=== PATIENT | female | born 1965 | race Caucasian/White ===

== ENCOUNTER → 2018-03-10 13:19 | Outpatient (CLI) | payer OTHER, SELFPAY ==
--- NOTE | 2018-03-10 13:24 | DI.MRI.S_ITS ---
PROCEDURE: MR LUMBAR SPINE WO CON INDICATIONS: right hip and lumbar pain after L and I fall 11/12/2017 TECHNIQUE: Noncontrast sagittal T1 spin echo and T2 fast echo, sagittal STIR, axial T1 and T2 fast spin echo through the lumbar spine. In cases with scoliosis, additional coronal T2 fast spin echo may be performed. COMPARISON: [facility], MR, L-SPINE WITHOUT CONTRAST, 05/15/2017, 12:56. [facility], CR, L-SPINE MINIMUM 4 VIEWS, 05/01/2017, 14:55. FINDINGS: Image quality: Excellent. Alignment and Curvature: There is normal bony alignment. Bone Marrow: Marrow is of normal overall signal. No acute vertebral body compression fractures. Reactive signal within the endplates adjacent to the L5-S1 intervertebral disc. Spinal Cord: Conus medullaris terminates at the upper L2 level. Visualized cord demonstrates normal signal and size. Paraspinous Soft Tissues: No paravertebral masses. Multiple calculi within the gallbladder lumen are present. L1-L2: Disc desiccation and diffuse disc bulge. Mild canal stenosis. No foraminal stenosis. No change. L2-L3: Disc desiccation and diffuse disc bulge. Bilateral hypertrophy. Mild canal stenosis. Mild foraminal stenosis bilaterally. No change. L3-L4: Disc desiccation and diffuse disc bulge. Bilateral facet hypertrophy. Mild canal stenosis. Mild foraminal stenosis bilaterally. No change. L4-L5: Disc desiccation and diffuse disc bulge. Bilateral facet hypertrophy. Mild canal stenosis. Mild foraminal stenosis bilaterally. No change. L5-S1: Disc desiccation and diffuse disc bulge. bilateral facet hypertrophy. Mild canal stenosis. Mild left foraminal stenosis. Moderate right foraminal stenosis. No change. IMPRESSION: 1. Multilevel degenerative disc and facet disease. 2. No change in mild multilevel canal stenoses. 3. No change in multilevel foraminal stenoses, worst on the right at L5-S1. 4. Cholelithiasis. Dictated by: Maureen Jones M.D. on 03/10/2018 at 15:49 Approved by: Maureen Jones M.D. on 03/10/2018 at 15:54
--- NOTE | 2018-03-10 13:24 | DI.RAD.S_ITS ---
PROCEDURE: FL ARTHROGRAM HIP RT INDICATIONS: right hip and lumbar pain after L and I fall 11/12/2017 TECHNIQUE: The indications, alternatives, benefits, risks, and complications of the procedure were explained to the patient. Written informed consent was obtained and placed in the chart. The hip was examined fluoroscopically with the legs fixed in slight internal rotation, and a site for needle placement chosen for entry into the hip joint from an anterior approach. Care was taken to locate the common femoral artery and vein beforehand. The skin was prepped and draped in a sterile fashion, and 1% Lidocaine infiltrated from skin down to joint capsule. A spinal needle was inserted into the joint, and a small amount of iodinated contrast media injected to confirm intra-articular placement of the needle tip. This was followed by approximately 10 mL dilute solution of a gadolinium containing MR contrast agent. The needle was removed and a dressing was applied. The patient was given postprocedural instructions and sent to the MR suite for imaging. FINDINGS: A single fluoroscopic spot image demonstrates intra-articular location of injected iodinated contrast. IMPRESSION: Successful fluoroscopically guided administration of dilute Gadolinium solution into the hip joint for MR arthrogram. Dictated by: Maurice Pepper M.D. on 03/10/2018 at 16:49 Approved by: Maurice Pepper M.D. on 03/10/2018 at 16:49
--- NOTE | 2018-03-10 13:24 | DI.MRI.S_ITS ---
PROCEDURE: MR HIP RT W CON INDICATIONS: Right hip pain post fall 11/12/2017 TECHNIQUE: After the administration of 10 mL of dilute intra-articular Gadolinium contrast, coronal STIR of the bony pelvis; coronal and oblique axial T1 spin echo with fat saturation, axial T2 fast spin echo with fat saturation, sagittal T1 spin echo with and without fat saturation of the involved hip. COMPARISON: None. FINDINGS: Image quality: Excellent. Bones and joints: Bone marrow of the pelvic ring and proximal femurs show normal signal throughout. No intraosseous lesions or fractures. No avascular necrosis of the femoral head. The visualized lower lumbar spine appears normally aligned. The ligamental, neck, and labral plicae appear normal where visualized. Tendons and ligaments: The gluteus medius and minimus tendons appear however there is intrasubstance signal change and edema, in addition to a low signal focus in the insertion of the gluteus medius tendon measuring 8-9 mm suggestive of calcific tendinitis. . The nearby proximal iliotibial band also appears intact. The iliopsoas tendon appears intact, without adjacent bursal fluid collections or evidence for impingement syndrome. The origin of the hamstring tendon is intact at the ischial tuberosity, as well as the associated sacrotuberous ligament. The straight and reflected heads of the rectus femoris muscle origin appear intact, as well as the conjoint tendon. The ligamentum teres appears intact where visualized. Labrum and cartilage: On image 10 series 8, there is curvilinear T2 hyperintense appearance involving the labrum however this is probably artifact, and not confirmed on other pulse sequences. No discrete intrasubstance gadolinium signal intensity to suggest labral tear is seen. Mild diffuse articular cartilage loss. No paralabral cysts. Prominent anterior dysplastic bump seen at the femoral head neck junction on image 9 series 8 . The alpha angle of the femur is within normal limits at less than 55 degrees. Soft tissues: Visualized muscles demonstrate normal bulk and internal signal. Quadratus femoris muscle demonstrates no internal edema to suggest ischiofemoral impingement. The proximal sciatic neurovascular bundle appears normal adjacent to the hamstring tendons. No free pelvic fluid. Bladder wall thickness is normal. Genitourinary structures and bowel loops appear normal where visualized. 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 Mild right hip joint degeneration. Incidentally noted anterior dysplastic bump at the femoral head neck junction raising the possibility of femoral acetabular impingement syndrome however only in the appropriate clinical context. No definite labral tear. Dictated by: Maurice Pepper M.D. on 03/10/2018 at 16:36 Approved by: Maurice Pepper M.D. on 03/10/2018 at 16:49
== END ==
PROVIDERS: Family Provider Physician Assistant; PCP Physician Assistant; Visit Provider Physician Assistant
DX: M51.36 Other intervertebral disc degeneration, lumbar region (principal); M47.816 Spondylosis without myelopathy or radiculopathy, lumbar region; M48.061 Spinal stenosis, lumbar region without neurogenic claudication; M99.73 Connective tissue and disc stenosis of intervertebral foramina of lumbar region; K80.20 Calculus of gallbladder without cholecystitis without obstruction; M65.251 Calcific tendinitis, right thigh; M16.11 Unilateral primary osteoarthritis, right hip
CPT/HCPCS: 27093; 72148; 73722; 77002

== ENCOUNTER → 2018-05-22 12:14 | Outpatient (CLI) | payer OTHER, SELFPAY ==
--- NOTE | 2018-05-22 12:25 | DI.US.S_ITS ---
PROCEDURE: US ABDOMEN LIMITED INDICATIONS: ABDOMINAL PAIN TECHNIQUE: Real-time focused scanning was performed of the abdomen, with image documentation. COMPARISON: None. FINDINGS: Right lower quadrant pain with palpable lump does not show evidence of abdominal wall herniation or mesenteric mass by ultrasound imaging. Appendix is surgically absent by history. IMPRESSION: Negative limited abdomen ultrasound Dictated by: Kyle Huffman M.D. on 05/22/2018 at 12:55 Approved by: Kyle Huffman M.D. on 05/22/2018 at 12:56
== END ==
PROVIDERS: PCP Physician Assistant; Visit Provider Physician Assistant
DX: R10.31 Right lower quadrant pain (principal)
CPT/HCPCS: 76705

== ENCOUNTER 2018-07-09 13:45 | Outpatient (RCR) | payer OTHER, SELFPAY ==
--- NOTE | 2018-04-23 15:15 | PT.OTN ---
Current Diagnoses Other chronic pain (04/23/18) Pain in right hip (04/23/18) Dorsalgia, unspecified (04/23/18) Difficulty in walking, not elsewhere classified (04/23/18) Weakness (04/23/18) Physical Therapy Treatment Note PT-OP-A Visit Information Start: 04/23/18 17:21 Freq: Status: Active Protocol: Document 04/23/18 17:25 GGD (Rec: 04/23/18 17:25 GGD [email or web address]) Out-Patient Physical Therapy Visit Information Visit Information Visit Type Administrative Note Visit Note On February 10, 2018 our therapy services consisting of Speech, Occupational, and Physical therapy transitioned from [employer] electronic documentation system to a new [employer] electronic system. All documentation prior to February 10 can be found under [employer] saved data. From February 10 forward, all medical record documentation will be in [email or web address]. PT-OP-B Current Condition Start: 04/23/18 17:21 Freq: Status: Active Protocol: Document 04/23/18 15:15 RCC (Rec: 04/23/18 18:13 RCC [email or web address]) Current Condition History of Current Condition Onset Date 11/12/17 Current Complaints R hip, low back pain History of Current Condition Pt presents with thoracic to lumbar and SI pain with pain in R pubic region and R shoulder pain after fall on . Pt was on steps of a patients travel trailer, and the step shifted, she lost her balance and hit her R knee and R hip/bottom on the step and R shoulder on her car. Pt had pain after and pain has been greater on the L side of low back. Pt finished a bout of prednisone for a heel spur last week (January 2018). Pt is having increased pain during work and having to pace herself and limit lifting with increased bouts of sitting down d/t pain. PT-OP-C Subjective Start: 04/23/18 17:21 Freq: Status: Active Protocol: Document 04/23/18 15:15 RCC (Rec: 04/23/18 18:13 RCC [email or web address]) OP-PT Subjective Patient Comments Patient Comments Pt notes that her pain feels worse since not coming to PT over the past 2-3 months. Patient Questionnaires Oswestry Low Back Index Oswestry Score 42 Oswestry Impairment 40 to 59% Impaired (Score 40- 59) PT-OP-F Manual Assessment Start: 04/23/18 17:21 Freq: Status: Active Protocol: Document 04/23/18 15:15 RCC (Rec: 04/23/18 18:13 RCC [email or web address]) Manual Assessments Soft Tissue Assessment Soft Tissue Mobility Assessment TTP: R piriformis, bilateral QL and lumbar paraspinals. PT-OP-G Mobility & Gait Start: 04/23/18 17:21 Freq: Status: Active Protocol: Document 04/23/18 15:15 RCC (Rec: 04/23/18 18:13 RCC [email or web address]) OP Gait Assessment Comments Gait Comments Stiff legged gait with decreased trunk motion throughout. PT-OP-K Range of Motion Start: 04/23/18 17:21 Freq: Status: Active Protocol: Document 04/23/18 15:15 RCC (Rec: 04/23/18 18:13 RCC [email or web address]) Lumbar Spine Range of Motion Lumbar Spine Active Testing Position standing Flexion 70 Extension 18 Comments no pain with flexion, but pain with extension R low back/SI PT-OP-L Special Tests Start: 04/23/18 17:21 Freq: Status: Active Protocol: Document 04/23/18 15:15 RCC (Rec: 04/23/18 18:13 RCC [email or web address]) Special Tests Hip Special Tests JOSE DAVID Test Results negative bilaterally PT-OP-M Strength Start: 04/23/18 17:21 Freq: Status: Active Protocol: Document 04/23/18 15:15 RCC (Rec: 04/23/18 18:13 RCC [email or web address]) Hip Strength Hip Manual Muscle Testing Right Flexion (L2) 3 Fair Adduction 5 Normal External Rotation 4- Good- Internal Rotation 3+ Fair+ Left Flexion (L2) 4- Good- Adduction 5 Normal External Rotation 4 Good Internal Rotation 4- Good- Knee Strength Knee Manual Muscle Testing Right Flexion (S2) 5 Normal Extension (L3) 5 Normal Left Flexion (S2) 5 Normal Extension (L3) 5 Normal Ankle/Foot Strength Ankle and Foot Manual Muscle Testing Right Dorsiflexion (L4) 5 Normal Left Dorsiflexion (L4) 5 Normal PT-OP-Q Treatments Start: 04/23/18 17:21 Freq: Status: Active Protocol: Document 04/23/18 15:15 RCC (Rec: 04/23/18 18:13 RCC [email or web address]) Therapeutic Exercises Supine Exercises 1 Supine Exercise Name bridging Reps/Minutes 1x10 Sidelying Exercises 1 Sidelying Exercise Name clamshells Side right Reps/Minutes 1x10 Standing Exercises 4 Standing Exercise Name HS stretch Side bilateral Equipment Used stairs 3 Standing Exercise Name hip extension Side bilateral Equipment Used standing bar Comments VC for l/s and pelvic alignment 2 Standing Exercise Name hip flexion with LE ER Side bilateral Equipment Used standing bar 1 Standing Exercise Name hip IR/ER Side bilateral Equipment Used standing bar Manual Therapy Treatment Joint Mobilizations 1 Joint R SI joint Direction caudal Grade II Body Position Prone Other Other Manual Treatments Special tests, LE MMT, palpation PT-OP-R Modalities Start: 04/23/18 17:21 Freq: Status: Active Protocol: Document 04/23/18 15:15 RCC (Rec: 04/23/18 18:13 [facility] [email or web address]) Hot Pack/Cold Pack Treatment Hot Pack Location lumbar and SI Patient Position Hooklying Treatment Duration (minutes) 15 Patient Tolerance Good Comments Bolster; post-activity PT-OP-T Assessment and Plan Start: 04/23/18 17:21 Freq: Status: Active Protocol: Document 04/23/18 15:15 [facility] (Rec: 04/23/18 18:13 [facility] [email or web address]) Physical Therapy Assessment Impairments Impairments Activity Tolerance Functional Activities Gait Pain ROM Soft Tissue Mobility Strength Goals Five Impairment LE weakness Continuous Wave Operator Goal (LTG) 5/5 with all tested manual muscle testing to allow pt to ambulate and work without increased pain. LTG Duration 8 weeks. Four Impairment Gait Skilled Nursing Goal (LTG) Normalize gait to prior level. LTG Duration 8 weeks Three Impairment pain rated 9/10 @ worst Short Term Goal (STG) 6/10 @ worst STG Duration 4 weeks Continuous Wave Operator Goal (LTG) 3/10 @ worst LTG Duration 8 weeks Two Impairment Modified Oswestry Short Term Goal (STG) score of 26 or less STG Duration 4 weeks Skilled Nursing Goal (LTG) score of 16 or less LTG Duration 8 weeks One Impairment work tasks Skilled Nursing Goal (LTG) pt will return to participate in a full work day without pain. LTG Duration 8 weeks Progress Towards Goals Progress Towards Goals Slow Progress due to Activity Tolerance Slow Progress due to Attendance Issues Slow Progress due to Medical Issues Progress Comments Pt unable to attend PT since January due to insurance visit limitations. Assessment Summary Assessment Pt presents back to physical therapy with complaints of low back, R SI joint, R hip and R shoulder pain s/p fall at work in October 2017. Pt's Modified Oswestry score is 42% . Pt would greatly benefit from continued skilled physical therapy to improve her core and LE strength, body mechanics and posture, decrease pain, normalize gait, and return to work without restrictions. Pt's JOSE DAVID test is no longer positive, and her ROM in lumbar flexion has improved without c/o pain, but still painful into extension and with prolonged activities. Physical Therapy Plan Frequency and Duration Frequency of Treatment 2x/Week Duration of Treatment 8 weeks Plan of Care Start Date 04/23/18 Plan of Care End Date 06/18/18 Therapeutic Interventions Therapeutic Interventions Aquatic Therapy Gait Training Home Exercise Program Joint Mobilizations Manual Therapy Neuromuscular Re-education Patient/Caregiver Education Self-Care/Home Management Soft Tissue Mobilization Taping Therapeutic Activities Therapeutic Exercises Modalities Cold Pack/Ice Massage Electric Stimulation Hot Packs Ultrasound Next Visit Focus/Plan Next Note Type Treatment Note Next Visit Plan supine transverse abdominal activation with heel raise with progression to marching, standing hip 4-way without resistance, posterior pelvic tilting.
--- NOTE | 2018-04-23 15:15 | PT.OPPOC ---
Current Diagnoses Other chronic pain (04/23/18) Pain in right hip (04/23/18) Dorsalgia, unspecified (04/23/18) Difficulty in walking, not elsewhere classified (04/23/18) Weakness (04/23/18) Provider Visit Care Team Role Provider Type Zohreh Hollingsworth PA-C Attending Provider Advanced Applied Psychology Professor Family Provider Primary Care Provider Specialty: Family Practice Address: [address] [place] [address], [facility] Email: [email or web address] Plan Of Care PT-OP-T Assessment and Plan Start: 04/23/18 17:21 Freq: Status: Active Protocol: Document 04/23/18 15:15 RCC (Rec: 04/23/18 18:13 RCC [email or web address]) Physical Therapy Assessment Impairments Impairments Activity Tolerance Functional Activities Gait Pain ROM Soft Tissue Mobility Strength Goals Five Impairment LE weakness Station Operator Goal (LTG) 5/5 with all tested manual muscle testing to allow pt to ambulate and work without increased pain. LTG Duration 8 weeks. Four Impairment Gait Station Operator Goal (LTG) Normalize gait to prior level. LTG Duration 8 weeks Three Impairment pain rated 9/10 @ worst Short Term Goal (STG) 6/10 @ worst STG Duration 4 weeks Mcc Goal (LTG) 3/10 @ worst LTG Duration 8 weeks Two Impairment Modified Oswestry Short Term Goal (STG) score of 26 or less STG Duration 4 weeks Mcc Goal (LTG) score of 16 or less LTG Duration 8 weeks One Impairment work tasks Mcc Goal (LTG) pt will return to participate in a full work day without pain. LTG Duration 8 weeks Progress Towards Goals Progress Towards Goals Slow Progress due to Activity Tolerance Slow Progress due to Attendance Issues Slow Progress due to Medical Issues Progress Comments Pt unable to attend PT since January due to insurance visit limitations. Assessment Summary Assessment Pt presents back to physical therapy with complaints of low back, R SI joint, R hip and R shoulder pain s/p fall at work in October 2017. Pt's Modified Oswestry score is 42% . Pt would greatly benefit from continued skilled physical therapy to improve her core and LE strength, body mechanics and posture, decrease pain, normalize gait, and return to work without restrictions. Pt's JOSE DAVID test is no longer positive, and her ROM in lumbar flexion has improved without c/o pain, but still painful into extension and with prolonged activities. Physical Therapy Plan Frequency and Duration Frequency of Treatment 2x/Week Duration of Treatment 8 weeks Plan of Care Start Date 04/23/18 Plan of Care End Date 06/18/18 Therapeutic Interventions Therapeutic Interventions Aquatic Therapy Gait Training Home Exercise Program Joint Mobilizations Manual Therapy Neuromuscular Re-education Patient/Caregiver Education Self-Care/Home Management Soft Tissue Mobilization Taping Therapeutic Activities Therapeutic Exercises Modalities Cold Pack/Ice Massage Electric Stimulation Hot Packs Ultrasound Next Visit Focus/Plan Next Note Type Treatment Note Next Visit Plan supine transverse abdominal activation with heel raise with progression to marching, standing hip 4-way without resistance, posterior pelvic tilting. Plan of Care Dates Plan of Care Start Date 04/23/18 Plan of Care End Date 06/18/18 Please Sign and Return: I have reviewed this Plan of Care and certify that the skilled therapy services above are required to meet the patient?s needs. Physician Signature Date Printed Name and Credentials Clinical Instructor Signature Printed Name and Credentials
--- NOTE | 2018-04-23 17:25 | PT.OTN ---
Current Diagnoses Pain in right hip (04/23/18) Dorsalgia, unspecified (04/23/18) Physical Therapy Treatment Note PT-OP-A Visit Information Start: 04/23/18 17:21 Freq: Status: Active Protocol: Document 04/23/18 17:25 TONY (Rec: 04/23/18 17:25 TONY [email or web address]) Out-Patient Physical Therapy Visit Information Visit Information Visit Type Administrative Note Visit Note On February 10, 2018 our therapy services consisting of Speech, Occupational, and Physical therapy transitioned from [employer] electronic documentation system to a new [employer] electronic system. All documentation prior to February 10 can be found under [employer] saved data. From February 10 forward, all medical record documentation will be in [email or web address].
--- NOTE | 2018-04-28 14:25 | PT.OTN ---
Current Diagnoses Pain in right hip (04/28/18) Dorsalgia, unspecified (04/28/18) Physical Therapy Treatment Note PT-OP-A Visit Information Start: 04/23/18 17:21 Freq: Status: Active Protocol: Document 04/28/18 14:17 [facility] (Rec: 04/28/18 14:25 [facility] [email or web address]) Out-Patient Physical Therapy Visit Information Visit Information Visit Type Treatment Note Visit Start Time 10:30 Visit Stop Time 11:20 Total Visit Minutes 50 Visit Number 14 Number of BASKET TURNER Visits 0 PT-OP-B Current Condition Start: 04/23/18 17:21 Freq: Status: Active Protocol: Document 04/23/18 15:15 RCC (Rec: 04/23/18 18:13 RCC [email or web address]) Current Condition History of Current Condition Onset Date 11/12/17 Current Complaints R hip, low back pain History of Current Condition Pt presents with thoracic to lumbar and SI pain with pain in R pubic region and R shoulder pain after fall on . Pt was on steps of a patients travel trailer, and the step shifted, she lost her balance and hit her R knee and R hip/bottom on the step and R shoulder on her car. Pt had pain after and pain has been greater on the L side of low back. Pt finished a bout of prednisone for a heel spur last week (January 2018). Pt is having increased pain during work and having to pace herself and limit lifting with increased bouts of sitting down d/t pain. PT-OP-C Subjective Start: 04/23/18 17:21 Freq: Status: Active Protocol: Document 04/28/18 14:17 [facility] (Rec: 04/28/18 14:25 [facility] [email or web address]) OP-PT Subjective Patient Comments Patient Comments Feeling pain in the right SI joint that worsens with sitting PT-OP-F Manual Assessment Start: 04/23/18 17:21 Freq: Status: Active Protocol: Document 04/23/18 15:15 RCC (Rec: 04/23/18 18:13 RCC [email or web address]) Manual Assessments Soft Tissue Assessment Soft Tissue Mobility Assessment TTP: R piriformis, bilateral QL and lumbar paraspinals. PT-OP-G Mobility & Gait Start: 04/23/18 17:21 Freq: Status: Active Protocol: Document 04/23/18 15:15 RCC (Rec: 04/23/18 18:13 RCC [email or web address]) OP Gait Assessment Comments Gait Comments Stiff legged gait with decreased trunk motion throughout. PT-OP-K Range of Motion Start: 04/23/18 17:21 Freq: Status: Active Protocol: Document 04/23/18 15:15 RCC (Rec: 04/23/18 18:13 RCC [email or web address]) Lumbar Spine Range of Motion Lumbar Spine Active Testing Position standing Flexion 70 Extension 18 Comments no pain with flexion, but pain with extension R low back/SI PT-OP-L Special Tests Start: 04/23/18 17:21 Freq: Status: Active Protocol: Document 04/23/18 15:15 RCC (Rec: 04/23/18 18:13 RCC [email or web address]) Special Tests Hip Special Tests JOSE DAVID Test Results negative bilaterally PT-OP-M Strength Start: 04/23/18 17:21 Freq: Status: Active Protocol: Document 04/23/18 15:15 RCC (Rec: 04/23/18 18:13 RCC [email or web address]) Hip Strength Hip Manual Muscle Testing Right Flexion (L2) 3 Fair Adduction 5 Normal External Rotation 4- Good- Internal Rotation 3+ Fair+ Left Flexion (L2) 4- Good- Adduction 5 Normal External Rotation 4 Good Internal Rotation 4- Good- Knee Strength Knee Manual Muscle Testing Right Flexion (S2) 5 Normal Extension (L3) 5 Normal Left Flexion (S2) 5 Normal Extension (L3) 5 Normal Ankle/Foot Strength Ankle and Foot Manual Muscle Testing Right Dorsiflexion (L4) 5 Normal Left Dorsiflexion (L4) 5 Normal PT-OP-Q Treatments Start: 04/23/18 17:21 Freq: Status: Active Protocol: Document 04/28/18 14:17 [facility] (Rec: 04/28/18 14:25 [facility] [email or web address]) Cardio Equipment Recumbent Elliptical ([employer]) Duration (Minutes) 5 Resistance level 2 Therapeutic Exercises Supine Exercises 3 Supine Exercise Name TA facilitation with heel slides Reps/Minutes 10 each leg 2 Supine Exercise Name SKTC, DKTC, HAMSTRING AND ADDUCTOR STRETCH WITH STRAP Reps/Minutes hold 1 min each side 1 Supine Exercise Name bridging Reps/Minutes 1x10 Sidelying Exercises 1 Sidelying Exercise Name clamshells Side right Reps/Minutes 2 x 10 Standing Exercises 5 Standing Exercise Name standing hip flexor stretch in warrior one yoga pose 4 Standing Exercise Name HS stretch Side bilateral Equipment Used stairs 3 Standing Exercise Name hip extension Side bilateral Equipment Used standing bar Comments VC for l/s and pelvic alignment 2 Standing Exercise Name hip flexion with LE ER Side bilateral Equipment Used standing bar PT-OP-R Modalities Start: 04/23/18 17:21 Freq: Status: Active Protocol: Document 04/28/18 14:17 [facility] (Rec: 04/28/18 14:25 [facility] [email or web address]) Hot Pack/Cold Pack Treatment Cold Pack Location cold pack right knee and SI joint PT-OP-T Assessment and Plan Start: 04/23/18 17:21 Freq: Status: Active Protocol: Document 04/28/18 14:17 [facility] (Rec: 04/28/18 14:25 [facility] [email or web address]) Physical Therapy Assessment Assessment Summary Assessment Chayo notes the heat was too hot last visit and she wanted to try ice today at end of treatment. She tolerated stretches well today but did have a muscle cramps in the hamstrings with bridges and needed to stretch inbetween. Postural education was given to avoid increased lordosis with stretches/exercises. Physical Therapy Plan Frequency and Duration Frequency of Treatment 2x/Week Duration of Treatment 8 weeks Plan of Care Start Date 04/23/18 Plan of Care End Date 06/18/18 Therapeutic Interventions Therapeutic Interventions Aquatic Therapy Gait Training Home Exercise Program Joint Mobilizations Manual Therapy Neuromuscular Re-education Patient/Caregiver Education Self-Care/Home Management Soft Tissue Mobilization Taping Therapeutic Activities Therapeutic Exercises Modalities Cold Pack/Ice Massage Electric Stimulation Hot Packs Ultrasound Next Visit Focus/Plan Next Note Type Treatment Note Next Visit Plan continue progressing TA facilitation and SI stabilization
--- NOTE | 2018-04-30 14:40 | PT.OTN ---
Current Diagnoses Pain in right hip (04/30/18) Dorsalgia, unspecified (04/30/18) Physical Therapy Treatment Note PT-OP-A Visit Information Start: 04/23/18 17:21 Freq: Status: Active Protocol: Document 04/30/18 14:40 [facility] (Rec: 04/30/18 15:06 [facility] [email or web address]) Out-Patient Physical Therapy Visit Information Visit Information Visit Type Treatment Note Visit Start Time 13:45 Visit Stop Time 14:40 Total Visit Minutes 55 Visit Number 15 Number of BIOLOGICAL ENGINEER Visits 0 Evaluation Information Evaluation Date 12/11/17 PT-OP-B Current Condition Start: 04/23/18 17:21 Freq: Status: Active Protocol: Document 04/23/18 15:15 [facility] (Rec: 04/23/18 18:13 [facility] [email or web address]) Current Condition History of Current Condition Onset Date 11/12/17 Current Complaints R hip, low back pain History of Current Condition Pt presents with thoracic to lumbar and SI pain with pain in R pubic region and R shoulder pain after fall on . Pt was on steps of a [employer] travel trailer, and the step shifted, she lost her balance and hit her R knee and R hip/bottom on the step and R shoulder on her car. Pt had pain after and pain has been greater on the L side of low back. Pt finished a bout of prednisone for a heel spur last week (January 2018). Pt is having increased pain during work and having to pace herself and limit lifting with increased bouts of sitting down d/t pain. PT-OP-C Subjective Start: 04/23/18 17:21 Freq: Status: Active Protocol: Document 04/30/18 14:40 [facility] (Rec: 04/30/18 15:06 [facility] [email or web address]) OP-PT Subjective Patient Comments Patient Comments Pt states she had intense HS and gastroc cramping during the night after last session. She feels like cold/ice did not help decrease pain, would prefer heat. PT-OP-F Manual Assessment Start: 04/23/18 17:21 Freq: Status: Active Protocol: Document 04/30/18 14:40 [facility] (Rec: 04/30/18 15:06 [facility] [email or web address]) Manual Assessments Joint Mobility Assessment Joint Mobility Assessment R posterior ilial rotation. PT-OP-G Mobility & Gait Start: 04/23/18 17:21 Freq: Status: Active Protocol: Document 04/23/18 15:15 [facility] (Rec: 04/23/18 18:13 [facility] [email or web address]) OP Gait Assessment Comments Gait Comments Stiff legged gait with decreased trunk motion throughout. PT-OP-K Range of Motion Start: 04/23/18 17:21 Freq: Status: Active Protocol: Document 04/23/18 15:15 [facility] (Rec: 04/23/18 18:13 [facility] [email or web address]) Lumbar Spine Range of Motion Lumbar Spine Active Testing Position standing Flexion 70 Extension 18 Comments no pain with flexion, but pain with extension R low back/SI PT-OP-L Special Tests Start: 04/23/18 17:21 Freq: Status: Active Protocol: Document 04/23/18 15:15 [facility] (Rec: 04/23/18 18:13 [facility] [email or web address]) Special Tests Hip Special Tests JOSE DAVID Test Results negative bilaterally PT-OP-M Strength Start: 04/23/18 17:21 Freq: Status: Active Protocol: Document 04/23/18 15:15 [facility] (Rec: 04/23/18 18:13 [facility] [email or web address]) Hip Strength Hip Manual Muscle Testing Right Flexion (L2) 3 Fair Adduction 5 Normal External Rotation 4- Good- Internal Rotation 3+ Fair+ Left Flexion (L2) 4- Good- Adduction 5 Normal External Rotation 4 Good Internal Rotation 4- Good- Knee Strength Knee Manual Muscle Testing Right Flexion (S2) 5 Normal Extension (L3) 5 Normal Left Flexion (S2) 5 Normal Extension (L3) 5 Normal Ankle/Foot Strength Ankle and Foot Manual Muscle Testing Right Dorsiflexion (L4) 5 Normal Left Dorsiflexion (L4) 5 Normal PT-OP-Q Treatments Start: 04/23/18 17:21 Freq: Status: Active Protocol: Document 04/30/18 14:40 [facility] (Rec: 04/30/18 15:06 [facility] [email or web address]) Therapeutic Exercises Supine Exercises 6 Supine Exercise Name hip adduction Side bilateral Equipment Used small ball Reps/Minutes 1x10 Comments 5 sec hold 5 Supine Exercise Name LTR Side bilateral Equipment Used 55 cm ball Reps/Minutes 10 each 4 Supine Exercise Name knee flex/extension Side bilateral Equipment Used 55 cm ball Reps/Minutes 1x10 3 Supine Exercise Name TA facilitation with short LE lift Reps/Minutes 10 each leg 1 Supine Exercise Name bridging Equipment Used 55 cm ball Reps/Minutes 1x10 Comments no HS cramping Standing Exercises 3 Standing Exercise Name hip extension Side bilateral Resistance L1 band Equipment Used rail Reps/Minutes 1x10 each Comments VC for l/s and pelvic alignment Manual Therapy Treatment Soft Tissue Mobilization 1 Body Location L piriformis Mobilization Type Strumming Intensity/Depth Moderate Body Position R sidelying Manual Techniques 1 Type MET to correct R posterior ilial rotation Body Position Hooklying PT-OP-R Modalities Start: 04/23/18 17:21 Freq: Status: Active Protocol: Document 04/30/18 14:40 [facility] (Rec: 04/30/18 15:06 [facility] [email or web address]) Hot Pack/Cold Pack Treatment Hot Pack Location lumbar and SI Patient Position Hooklying Treatment Duration (minutes) 15 Comments Bolster; post-activity; extra layers (2 extra layers) PT-OP-T Assessment and Plan Start: 04/23/18 17:21 Freq: Status: Active Protocol: Document 04/30/18 14:40 [facility] (Rec: 04/30/18 15:06 [facility] [email or web address]) Physical Therapy Assessment Assessment Summary Assessment Pt tolerated heat with extra layers this session and no complaints. She had less cramping in the HS with ball exercises in supine vs. just on mat table. Pt requires VC for posture and pelvic control /alignment. Physical Therapy Plan Frequency and Duration Frequency of Treatment 2x/Week Duration of Treatment 8 weeks Plan of Care Start Date 04/23/18 Plan of Care End Date 06/18/18 Next Visit Focus/Plan Next Note Type Treatment Note Next Visit Plan continue progressing core and SI stabilization
--- NOTE | 2018-05-05 12:09 | PT.OTN ---
Current Diagnoses Pain in right hip (05/05/18) Dorsalgia, unspecified (05/05/18) Physical Therapy Treatment Note PT-OP-A Visit Information Start: 04/23/18 17:21 Freq: Status: Active Protocol: Document 05/05/18 12:04 [facility] (Rec: 05/05/18 12:09 [facility] [email or web address]) Out-Patient Physical Therapy Visit Information Visit Information Visit Type Treatment Note Visit Start Time 11:15 Visit Stop Time 12:00 Total Visit Minutes 55 Visit Number 16 Number of BLUE SPLIT TRIMMER Visits 0 Evaluation Information Evaluation Date 12/11/17 PT-OP-B Current Condition Start: 04/23/18 17:21 Freq: Status: Active Protocol: Document 04/23/18 15:15 [facility] (Rec: 04/23/18 18:13 [facility] [email or web address]) Current Condition History of Current Condition Onset Date 11/12/17 Current Complaints R hip, low back pain History of Current Condition Pt presents with thoracic to lumbar and SI pain with pain in R pubic region and R shoulder pain after fall on . Pt was on steps of a [employer] travel trailer, and the step shifted, she lost her balance and hit her R knee and R hip/bottom on the step and R shoulder on her car. Pt had pain after and pain has been greater on the L side of low back. Pt finished a bout of prednisone for a heel spur last week (January 2018). Pt is having increased pain during work and having to pace herself and limit lifting with increased bouts of sitting down d/t pain. PT-OP-C Subjective Start: 04/23/18 17:21 Freq: Status: Active Protocol: Document 05/05/18 12:04 [facility] (Rec: 05/05/18 12:09 [facility] [email or web address]) OP-PT Subjective Patient Comments Patient Comments Chayo reports cramping pain has continued to decrease. PT-OP-F Manual Assessment Start: 04/23/18 17:21 Freq: Status: Active Protocol: Document 04/30/18 14:40 [facility] (Rec: 04/30/18 15:06 [facility] [email or web address]) Manual Assessments Joint Mobility Assessment Joint Mobility Assessment R posterior ilial rotation. PT-OP-G Mobility & Gait Start: 04/23/18 17:21 Freq: Status: Active Protocol: Document 04/23/18 15:15 [facility] (Rec: 04/23/18 18:13 [facility] [email or web address]) OP Gait Assessment Comments Gait Comments Stiff legged gait with decreased trunk motion throughout. PT-OP-K Range of Motion Start: 04/23/18 17:21 Freq: Status: Active Protocol: Document 04/23/18 15:15 [facility] (Rec: 04/23/18 18:13 [facility] [email or web address]) Lumbar Spine Range of Motion Lumbar Spine Active Testing Position standing Flexion 70 Extension 18 Comments no pain with flexion, but pain with extension R low back/SI PT-OP-L Special Tests Start: 04/23/18 17:21 Freq: Status: Active Protocol: Document 04/23/18 15:15 [facility] (Rec: 04/23/18 18:13 [facility] [email or web address]) Special Tests Hip Special Tests JOSE DAVID Test Results negative bilaterally PT-OP-M Strength Start: 04/23/18 17:21 Freq: Status: Active Protocol: Document 04/23/18 15:15 [facility] (Rec: 04/23/18 18:13 [facility] [email or web address]) Hip Strength Hip Manual Muscle Testing Right Flexion (L2) 3 Fair Adduction 5 Normal External Rotation 4- Good- Internal Rotation 3+ Fair+ Left Flexion (L2) 4- Good- Adduction 5 Normal External Rotation 4 Good Internal Rotation 4- Good- Knee Strength Knee Manual Muscle Testing Right Flexion (S2) 5 Normal Extension (L3) 5 Normal Left Flexion (S2) 5 Normal Extension (L3) 5 Normal Ankle/Foot Strength Ankle and Foot Manual Muscle Testing Right Dorsiflexion (L4) 5 Normal Left Dorsiflexion (L4) 5 Normal PT-OP-Q Treatments Start: 04/23/18 17:21 Freq: Status: Active Protocol: Document 05/05/18 12:04 [facility] (Rec: 05/05/18 12:09 [facility] [email or web address]) Therapeutic Exercises Supine Exercises 6 Supine Exercise Name hip adduction Side bilateral Equipment Used small ball Reps/Minutes 1x10 Comments 5 sec hold 5 Supine Exercise Name LTR Side bilateral Equipment Used 55 cm ball Reps/Minutes 10 each 4 Supine Exercise Name knee flex/extension Side bilateral Equipment Used 55 cm ball Reps/Minutes 1x10 3 Supine Exercise Name TA facilitation with short LE lift Reps/Minutes 10 each leg 2 Supine Exercise Name SKTC, DKTC, HAMSTRING AND ADDUCTOR STRETCH WITH STRAP Reps/Minutes hold 1 min each side 1 Supine Exercise Name bridging Equipment Used 55 cm ball Reps/Minutes 1x10 Comments no HS cramping Standing Exercises 6 Standing Exercise Name standing rows Equipment Used level 1 theraband Reps/Minutes 3 x 10 reps 5 Standing Exercise Name standing hip flexor stretch in warrior one yoga pose 3 Standing Exercise Name hip extension Side bilateral Resistance L1 band Equipment Used rail Reps/Minutes 1x10 each Comments VC for l/s and pelvic alignment PT-OP-R Modalities Start: 04/23/18 17:21 Freq: Status: Active Protocol: Document 04/30/18 14:40 [facility] (Rec: 04/30/18 15:06 [facility] [email or web address]) Hot Pack/Cold Pack Treatment Hot Pack Location lumbar and SI Patient Position Hooklying Treatment Duration (minutes) 15 Comments Bolster; post-activity; extra layers (2 extra layers) PT-OP-T Assessment and Plan Start: 04/23/18 17:21 Freq: Status: Active Protocol: Document 05/05/18 12:04 [facility] (Rec: 05/05/18 12:09 [facility] [email or web address]) Physical Therapy Assessment Assessment Summary Assessment Chayo appears to be tolerating her exercises better with decreased cramping and improved TA facilitation. She is still complaining of right sided adductor tightness Physical Therapy Plan Frequency and Duration Frequency of Treatment 2x/Week Duration of Treatment 8 weeks Plan of Care Start Date 04/23/18 Plan of Care End Date 06/18/18 Therapeutic Interventions Therapeutic Interventions Aquatic Therapy Gait Training Home Exercise Program Joint Mobilizations Manual Therapy Neuromuscular Re-education Patient/Caregiver Education Self-Care/Home Management Soft Tissue Mobilization Taping Therapeutic Activities Therapeutic Exercises Modalities Cold Pack/Ice Massage Electric Stimulation Hot Packs Ultrasound Next Visit Focus/Plan Next Note Type Treatment Note Next Visit Plan continue progressing core and SI stabilization
--- NOTE | 2018-05-07 14:27 | PT.OTN ---
Current Diagnoses Pain in right hip (05/07/18) Dorsalgia, unspecified (05/07/18) Physical Therapy Treatment Note PT-OP-A Visit Information Start: 04/23/18 17:21 Freq: Status: Active Protocol: Document 05/07/18 14:27 [facility] (Rec: 05/08/18 12:33 [facility] [email or web address]) Out-Patient Physical Therapy Visit Information Visit Information Visit Type Treatment Note Visit Start Time 13:45 Visit Stop Time 14:27 Total Visit Minutes 42 Visit Number 17 Number of CARE DIRECTOR RN Visits 0 Evaluation Information Evaluation Date 12/11/17 PT-OP-B Current Condition Start: 04/23/18 17:21 Freq: Status: Active Protocol: Document 04/23/18 15:15 [facility] (Rec: 04/23/18 18:13 [facility] [email or web address]) Current Condition History of Current Condition Onset Date 11/12/17 Current Complaints R hip, low back pain History of Current Condition Pt presents with thoracic to lumbar and SI pain with pain in R pubic region and R shoulder pain after fall on . Pt was on steps of a [employer] travel trailer, and the step shifted, she lost her balance and hit her R knee and R hip/bottom on the step and R shoulder on her car. Pt had pain after and pain has been greater on the L side of low back. Pt finished a bout of prednisone for a heel spur last week (January 2018). Pt is having increased pain during work and having to pace herself and limit lifting with increased bouts of sitting down d/t pain. PT-OP-C Subjective Start: 04/23/18 17:21 Freq: Status: Active Protocol: Document 05/07/18 14:27 [facility] (Rec: 05/08/18 12:33 [facility] [email or web address]) OP-PT Subjective Patient Comments Patient Comments Pt notes that she has had less cramping in her LEs. Her shoulder is doing better, she does c/o low back pain. She is increasing her work hours soon (possibly next week). PT-OP-F Manual Assessment Start: 04/23/18 17:21 Freq: Status: Active Protocol: Document 04/30/18 14:40 [facility] (Rec: 04/30/18 15:06 [facility] [email or web address]) Manual Assessments Joint Mobility Assessment Joint Mobility Assessment R posterior ilial rotation. PT-OP-G Mobility & Gait Start: 04/23/18 17:21 Freq: Status: Active Protocol: Document 04/23/18 15:15 [facility] (Rec: 04/23/18 18:13 [facility] [email or web address]) OP Gait Assessment Comments Gait Comments Stiff legged gait with decreased trunk motion throughout. PT-OP-K Range of Motion Start: 04/23/18 17:21 Freq: Status: Active Protocol: Document 04/23/18 15:15 [facility] (Rec: 04/23/18 18:13 [facility] [email or web address]) Lumbar Spine Range of Motion Lumbar Spine Active Testing Position standing Flexion 70 Extension 18 Comments no pain with flexion, but pain with extension R low back/SI PT-OP-L Special Tests Start: 04/23/18 17:21 Freq: Status: Active Protocol: Document 04/23/18 15:15 [facility] (Rec: 04/23/18 18:13 [facility] [email or web address]) Special Tests Hip Special Tests JOSE DAVID Test Results negative bilaterally PT-OP-M Strength Start: 04/23/18 17:21 Freq: Status: Active Protocol: Document 04/23/18 15:15 [facility] (Rec: 04/23/18 18:13 [facility] [email or web address]) Hip Strength Hip Manual Muscle Testing Right Flexion (L2) 3 Fair Adduction 5 Normal External Rotation 4- Good- Internal Rotation 3+ Fair+ Left Flexion (L2) 4- Good- Adduction 5 Normal External Rotation 4 Good Internal Rotation 4- Good- Knee Strength Knee Manual Muscle Testing Right Flexion (S2) 5 Normal Extension (L3) 5 Normal Left Flexion (S2) 5 Normal Extension (L3) 5 Normal Ankle/Foot Strength Ankle and Foot Manual Muscle Testing Right Dorsiflexion (L4) 5 Normal Left Dorsiflexion (L4) 5 Normal PT-OP-Q Treatments Start: 04/23/18 17:21 Freq: Status: Active Protocol: Document 05/07/18 14:27 [facility] (Rec: 05/08/18 12:33 [facility] [email or web address]) Therapeutic Exercises Supine Exercises 5 Supine Exercise Name LTR Side bilateral Equipment Used 55 cm ball Reps/Minutes 10 each 4 Supine Exercise Name knee flex/extension Side bilateral Equipment Used 55 cm ball Reps/Minutes 1x10 3 Supine Exercise Name TA facilitation with short LE lift Reps/Minutes 10 each leg 2 Supine Exercise Name SKTC, DKTC, HAMSTRING AND ADDUCTOR STRETCH WITH STRAP Reps/Minutes hold 1 min each side 1 Supine Exercise Name bridging Equipment Used 55 cm ball Reps/Minutes 1x10 Comments no HS cramping Standing Exercises 6 Standing Exercise Name standing rows Equipment Used level 1 theraband Reps/Minutes 3 x 10 reps Manual Therapy Treatment Joint Mobilizations 1 Joint R SI joint Direction caudal Grade II Body Position Prone Manual Techniques 1 Type MET to correct R posterior ilial rotation Body Position Hooklying PT-OP-R Modalities Start: 04/23/18 17:21 Freq: Status: Active Protocol: Document 04/30/18 14:40 [facility] (Rec: 04/30/18 15:06 [facility] [email or web address]) Hot Pack/Cold Pack Treatment Hot Pack Location lumbar and SI Patient Position Hooklying Treatment Duration (minutes) 15 Comments Bolster; post-activity; extra layers (2 extra layers) PT-OP-T Assessment and Plan Start: 04/23/18 17:21 Freq: Status: Active Protocol: Document 05/07/18 14:27 [facility] (Rec: 05/08/18 12:33 [facility] [email or web address]) Physical Therapy Assessment Assessment Summary Assessment Pt without c/o cramping in LEs , but does fatigue with TA activation. Pt was able to lift her legs higher this date with TA training. Physical Therapy Plan Frequency and Duration Frequency of Treatment 2x/Week Duration of Treatment 8 weeks Plan of Care Start Date 04/23/18 Plan of Care End Date 06/18/18 Next Visit Focus/Plan Next Note Type Treatment Note Next Visit Plan continue progressing core and SI stabilization
--- NOTE | 2018-05-28 17:31 | PT.OTN ---
Current Diagnoses Pain in right hip (05/28/18) Dorsalgia, unspecified (05/28/18) Physical Therapy Treatment Note PT-OP-A Visit Information Start: 04/23/18 17:21 Freq: Status: Active Protocol: Document 05/28/18 16:45 [facility] (Rec: 05/28/18 17:31 [facility] [id number]) Out-Patient Physical Therapy Visit Information Visit Information Visit Type Treatment Note Visit Start Time 16:45 Visit Stop Time 17:35 Total Visit Minutes 50 Visit Number 18 Number of COLLEGE INSTRUCTOR Visits 0 Evaluation Information Evaluation Date 12/11/17 PT-OP-B Current Condition Start: 04/23/18 17:21 Freq: Status: Active Protocol: Document 04/23/18 15:15 [facility] (Rec: 04/23/18 18:13 [facility] [email or web address]) Current Condition History of Current Condition Onset Date 11/12/17 Current Complaints R hip, low back pain History of Current Condition Pt presents with thoracic to lumbar and SI pain with pain in R pubic region and R shoulder pain after fall on . Pt was on steps of a [employer] travel trailer, and the step shifted, she lost her balance and hit her R knee and R hip/bottom on the step and R shoulder on her car. Pt had pain after and pain has been greater on the L side of low back. Pt finished a bout of prednisone for a heel spur last week (January 2018). Pt is having increased pain during work and having to pace herself and limit lifting with increased bouts of sitting down d/t pain. PT-OP-C Subjective Start: 04/23/18 17:21 Freq: Status: Active Protocol: Document 05/28/18 16:45 [facility] (Rec: 05/28/18 17:31 [facility] [id number]) OP-PT Subjective Patient Comments Patient Comments Pt reports she isn't doing well today, notes she has not taken her pain pill today, and has swelling in her right knee. PT-OP-F Manual Assessment Start: 04/23/18 17:21 Freq: Status: Active Protocol: Document 04/30/18 14:40 [facility] (Rec: 04/30/18 15:06 [facility] [email or web address]) Manual Assessments Joint Mobility Assessment Joint Mobility Assessment R posterior ilial rotation. PT-OP-G Mobility & Gait Start: 04/23/18 17:21 Freq: Status: Active Protocol: Document 04/23/18 15:15 [facility] (Rec: 04/23/18 18:13 [facility] [email or web address]) OP Gait Assessment Comments Gait Comments Stiff legged gait with decreased trunk motion throughout. PT-OP-K Range of Motion Start: 04/23/18 17:21 Freq: Status: Active Protocol: Document 04/23/18 15:15 [facility] (Rec: 04/23/18 18:13 [facility] [email or web address]) Lumbar Spine Range of Motion Lumbar Spine Active Testing Position standing Flexion 70 Extension 18 Comments no pain with flexion, but pain with extension R low back/SI PT-OP-L Special Tests Start: 04/23/18 17:21 Freq: Status: Active Protocol: Document 04/23/18 15:15 [facility] (Rec: 04/23/18 18:13 [facility] [email or web address]) Special Tests Hip Special Tests JOSE DAVID Test Results negative bilaterally PT-OP-M Strength Start: 04/23/18 17:21 Freq: Status: Active Protocol: Document 04/23/18 15:15 [facility] (Rec: 04/23/18 18:13 [facility] [email or web address]) Hip Strength Hip Manual Muscle Testing Right Flexion (L2) 3 Fair Adduction 5 Normal External Rotation 4- Good- Internal Rotation 3+ Fair+ Left Flexion (L2) 4- Good- Adduction 5 Normal External Rotation 4 Good Internal Rotation 4- Good- Knee Strength Knee Manual Muscle Testing Right Flexion (S2) 5 Normal Extension (L3) 5 Normal Left Flexion (S2) 5 Normal Extension (L3) 5 Normal Ankle/Foot Strength Ankle and Foot Manual Muscle Testing Right Dorsiflexion (L4) 5 Normal Left Dorsiflexion (L4) 5 Normal PT-OP-Q Treatments Start: 04/23/18 17:21 Freq: Status: Active Protocol: Document 05/28/18 16:45 [facility] (Rec: 05/28/18 17:31 [facility] [id number]) Cardio Equipment Recumbent Elliptical ([place]) Duration (Minutes) 5 Resistance 3 Therapeutic Exercises Supine Exercises 6 Supine Exercise Name hip adduction Side bilateral Equipment Used small ball Reps/Minutes 1x10 Comments 5 sec hold 5 Supine Exercise Name LTR Side bilateral Equipment Used 55 cm ball Reps/Minutes 10 each 4 Supine Exercise Name knee flex/extension Side bilateral Equipment Used 55 cm ball Reps/Minutes 1x10 2 Supine Exercise Name SKTC, DKTC, HAMSTRING AND ADDUCTOR STRETCH WITH STRAP Reps/Minutes hold 1 min each side 1 Supine Exercise Name bridging Equipment Used 55 cm ball Reps/Minutes 1x10 Comments no HS cramping Other Exercises 2 Other Exercise Name Resisted Forward/Retro-walking Side bilateral Resistance Green Equipment Used T-band 1 Other Exercise Name Resisted Side-stepping Side bilateral Resistance Green Equipment Used T-band PT-OP-R Modalities Start: 04/23/18 17:21 Freq: Status: Active Protocol: Document 05/28/18 16:45 [facility] (Rec: 05/28/18 17:31 [facility] [id number]) Hot Pack/Cold Pack Treatment Cold Pack Location cold pack right knee and SI joint Patient Position Hooklying Treatment Duration (minutes) 10 PT-OP-T Assessment and Plan Start: 04/23/18 17:21 Freq: Status: Active Protocol: Document 05/28/18 16:45 [facility] (Rec: 05/28/18 17:31 [facility] [id number]) Physical Therapy Assessment Impairments Impairments Activity Tolerance Functional Activities Gait Pain ROM Soft Tissue Mobility Strength Goals Five Impairment LE weakness Longterm Goal (LTG) 5/5 with all tested manual muscle testing to allow pt to ambulate and work without increased pain. LTG Duration 8 weeks. Four Impairment Gait Fire [employer] Goal (LTG) Normalize gait to prior level. LTG Duration 8 weeks Three Impairment pain rated 9/10 @ worst Short Term Goal (STG) 6/10 @ worst STG Duration 4 weeks Fire [employer] Goal (LTG) 3/10 @ worst LTG Duration 8 weeks Two Impairment Modified Oswestry Short Term Goal (STG) score of 26 or less STG Duration 4 weeks Fire Patrol Goal (LTG) score of 16 or less LTG Duration 8 weeks One Impairment work tasks [employer] Goal (LTG) pt will return to participate in a full work day without pain. LTG Duration 8 weeks Assessment Summary Assessment Pt tolerated treatment well today Physical Therapy Plan Frequency and Duration Frequency of Treatment 2x/Week Duration of Treatment 8 weeks Plan of Care Start Date 04/23/18 Plan of Care End Date 06/18/18 Therapeutic Interventions Therapeutic Interventions Aquatic Therapy Gait Training Home Exercise Program Joint Mobilizations Manual Therapy Neuromuscular Re-education Patient/Caregiver Education Self-Care/Home Management Soft Tissue Mobilization Taping Therapeutic Activities Therapeutic Exercises Modalities Cold Pack/Ice Massage Electric Stimulation Hot Packs Ultrasound Next Visit Focus/Plan Next Note Type Treatment Note Next Visit Plan continue progressing core and SI stabilization
--- NOTE | 2018-06-04 14:51 | PT.OTN ---
Current Diagnoses Pain in right hip (06/04/18) Dorsalgia, unspecified (06/04/18) Physical Therapy Treatment Note PT-OP-A Visit Information Start: 04/23/18 17:21 Freq: Status: Active Protocol: Document 06/04/18 13:45 AMB (Rec: 06/04/18 14:46 AMB [email or web address]) Out-Patient Physical Therapy Visit Information Visit Information Visit Type Treatment Note Visit Start Time 13:45 Visit Stop Time 14:40 Total Visit Minutes 55 Visit Number 19 Number of VEGETABLE BUNCHER Visits 0 Evaluation Information Evaluation Date 12/11/17 PT-OP-B Current Condition Start: 04/23/18 17:21 Freq: Status: Active Protocol: Document 04/23/18 15:15 RCC (Rec: 04/23/18 18:13 RCC [email or web address]) Current Condition History of Current Condition Onset Date 11/12/17 Current Complaints R hip, low back pain History of Current Condition Pt presents with thoracic to lumbar and SI pain with pain in R pubic region and R shoulder pain after fall on . Pt was on steps of a [employer] travel trailer, and the step shifted, she lost her balance and hit her R knee and R hip/bottom on the step and R shoulder on her car. Pt had pain after and pain has been greater on the L side of low back. Pt finished a bout of prednisone for a heel spur last week (January 2018). Pt is having increased pain during work and having to pace herself and limit lifting with increased bouts of sitting down d/t pain. PT-OP-C Subjective Start: 04/23/18 17:21 Freq: Status: Active Protocol: Document 06/04/18 13:45 AMB (Rec: 06/04/18 14:46 AMB [email or web address]) OP-PT Subjective Patient Comments Patient Comments Pt reports she has more pain today, woke up with more R sided pain. PT-OP-F Manual Assessment Start: 04/23/18 17:21 Freq: Status: Active Protocol: Document 04/30/18 14:40 RCC (Rec: 04/30/18 15:06 RCC [email or web address]) Manual Assessments Joint Mobility Assessment Joint Mobility Assessment R posterior ilial rotation. PT-OP-G Mobility & Gait Start: 04/23/18 17:21 Freq: Status: Active Protocol: Document 04/23/18 15:15 RCC (Rec: 04/23/18 18:13 RCC [email or web address]) OP Gait Assessment Comments Gait Comments Stiff legged gait with decreased trunk motion throughout. PT-OP-K Range of Motion Start: 04/23/18 17:21 Freq: Status: Active Protocol: Document 04/23/18 15:15 RCC (Rec: 04/23/18 18:13 RCC [email or web address]) Lumbar Spine Range of Motion Lumbar Spine Active Testing Position standing Flexion 70 Extension 18 Comments no pain with flexion, but pain with extension R low back/SI PT-OP-L Special Tests Start: 04/23/18 17:21 Freq: Status: Active Protocol: Document 04/23/18 15:15 RCC (Rec: 04/23/18 18:13 RCC [email or web address]) Special Tests Hip Special Tests JOSE DAVID Test Results negative bilaterally PT-OP-M Strength Start: 04/23/18 17:21 Freq: Status: Active Protocol: Document 04/23/18 15:15 RCC (Rec: 04/23/18 18:13 RCC [email or web address]) Hip Strength Hip Manual Muscle Testing Right Flexion (L2) 3 Fair Adduction 5 Normal External Rotation 4- Good- Internal Rotation 3+ Fair+ Left Flexion (L2) 4- Good- Adduction 5 Normal External Rotation 4 Good Internal Rotation 4- Good- Knee Strength Knee Manual Muscle Testing Right Flexion (S2) 5 Normal Extension (L3) 5 Normal Left Flexion (S2) 5 Normal Extension (L3) 5 Normal Ankle/Foot Strength Ankle and Foot Manual Muscle Testing Right Dorsiflexion (L4) 5 Normal Left Dorsiflexion (L4) 5 Normal PT-OP-Q Treatments Start: 04/23/18 17:21 Freq: Status: Active Protocol: Document 06/04/18 13:45 AMB (Rec: 06/04/18 14:46 AMB [email or web address]) Therapeutic Exercises Supine Exercises 6 Supine Exercise Name hip adduction Side bilateral Equipment Used small ball Reps/Minutes 1x10 Comments 5 sec hold 3 Supine Exercise Name TA facilitation with short LE lift Reps/Minutes 10 each leg 2 Supine Exercise Name SKTC, DKTC, HAMSTRING AND ADDUCTOR STRETCH WITH STRAP Reps/Minutes hold 1 min each side Sidelying Exercises 2 Sidelying Exercise Name hip abd SLR Reps/Minutes 2x10 1 Sidelying Exercise Name clamshell Reps/Minutes 30x2 Standing Exercises 4 Standing Exercise Name sidestepping squats Reps/Minutes 10x2 Comments at railing Other Exercises 2 Other Exercise Name Resisted Forward/Retro-walking Side bilateral Resistance Green Equipment Used T-band 1 Other Exercise Name Resisted Side-stepping Side bilateral Resistance Green Equipment Used T-band Manual Therapy Treatment Soft Tissue Mobilization 1 Body Location R piriformis Mobilization Type Strumming Intensity/Depth Moderate Body Position R sidelying Manual Techniques 1 Type MET to correct R posterior ilial rotation Body Position Hooklying PT-OP-R Modalities Start: 04/23/18 17:21 Freq: Status: Active Protocol: Document 06/04/18 13:45 AMB (Rec: 06/04/18 14:24 AMB [id number]) Hot Pack/Cold Pack Treatment Cold Pack Location cold pack right knee and SI joint Patient Position Hooklying Treatment Duration (minutes) 10 PT-OP-T Assessment and Plan Start: 04/23/18 17:21 Freq: Status: Active Protocol: Document 06/04/18 13:45 AMB (Rec: 06/04/18 14:46 AMB [email or web address]) Physical Therapy Assessment Goals Five Impairment LE weakness Pumping Plant Operator Goal (LTG) 5/5 with all tested manual muscle testing to allow pt to ambulate and work without increased pain. LTG Duration 8 weeks. Four Impairment Gait Fdc Goal (LTG) Normalize gait to prior level. LTG Duration 8 weeks Three Impairment pain rated 9/10 @ worst Short Term Goal (STG) 6/10 @ worst STG Duration 4 weeks Fdc Goal (LTG) 3/10 @ worst LTG Duration 8 weeks Two Impairment Modified Oswestry Short Term Goal (STG) score of 26 or less STG Duration 4 weeks Pumping Plant Operator Goal (LTG) score of 16 or less LTG Duration 8 weeks One Impairment work tasks Pumping Plant Operator Goal (LTG) pt will return to participate in a full work day without pain. LTG Duration 8 weeks Assessment Summary Assessment Pt with increased R SI, piriformis pain but tolerated treatment well and pain reduced afterwards. Physical Therapy Plan Frequency and Duration Frequency of Treatment 2x/Week Duration of Treatment 8 weeks Plan of Care Start Date 04/23/18 Plan of Care End Date 06/18/18 Next Visit Focus/Plan Next Note Type Treatment Note Next Visit Plan continue progressing core and SI stabilization
--- NOTE | 2018-06-11 14:35 | PT.OTN ---
Current Diagnoses Pain in right hip (06/11/18) Dorsalgia, unspecified (06/11/18) Physical Therapy Treatment Note PT-OP-A Visit Information Start: 04/23/18 17:21 Freq: Status: Active Protocol: Document 06/11/18 14:35 RCC (Rec: 06/11/18 14:35 RCC [email or web address]) Out-Patient Physical Therapy Visit Information Visit Information Visit Type Treatment Note Visit Start Time 13:45 Visit Stop Time 14:35 Total Visit Minutes 50 Visit Number 20 Number of SPOT WELDER LINE Visits 0 Evaluation Information Evaluation Date 12/11/17 PT-OP-B Current Condition Start: 04/23/18 17:21 Freq: Status: Active Protocol: Document 04/23/18 15:15 RCC (Rec: 04/23/18 18:13 RCC [email or web address]) Current Condition History of Current Condition Onset Date 11/12/17 Current Complaints R hip, low back pain History of Current Condition Pt presents with thoracic to lumbar and SI pain with pain in R pubic region and R shoulder pain after fall on . Pt was on steps of a [employer] travel trailer, and the step shifted, she lost her balance and hit her R knee and R hip/bottom on the step and R shoulder on her car. Pt had pain after and pain has been greater on the L side of low back. Pt finished a bout of prednisone for a heel spur last week (January 2018). Pt is having increased pain during work and having to pace herself and limit lifting with increased bouts of sitting down d/t pain. PT-OP-C Subjective Start: 04/23/18 17:21 Freq: Status: Active Protocol: Document 06/11/18 14:35 RCC (Rec: 06/11/18 14:35 RCC [email or web address]) OP-PT Subjective Patient Comments Patient Comments pt is walking more which seems to be helping with activity tolerance, but she is still stiff and sore in the R buttock and low back. PT-OP-F Manual Assessment Start: 04/23/18 17:21 Freq: Status: Active Protocol: Document 04/30/18 14:40 RCC (Rec: 04/30/18 15:06 RCC [email or web address]) Manual Assessments Joint Mobility Assessment Joint Mobility Assessment R posterior ilial rotation. PT-OP-G Mobility & Gait Start: 04/23/18 17:21 Freq: Status: Active Protocol: Document 04/23/18 15:15 RCC (Rec: 04/23/18 18:13 RCC [email or web address]) OP Gait Assessment Comments Gait Comments Stiff legged gait with decreased trunk motion throughout. PT-OP-K Range of Motion Start: 04/23/18 17:21 Freq: Status: Active Protocol: Document 04/23/18 15:15 RCC (Rec: 04/23/18 18:13 RCC [email or web address]) Lumbar Spine Range of Motion Lumbar Spine Active Testing Position standing Flexion 70 Extension 18 Comments no pain with flexion, but pain with extension R low back/SI PT-OP-L Special Tests Start: 04/23/18 17:21 Freq: Status: Active Protocol: Document 04/23/18 15:15 RCC (Rec: 04/23/18 18:13 RCC [email or web address]) Special Tests Hip Special Tests JOSE DAVID Test Results negative bilaterally PT-OP-M Strength Start: 04/23/18 17:21 Freq: Status: Active Protocol: Document 04/23/18 15:15 RCC (Rec: 04/23/18 18:13 RCC [email or web address]) Hip Strength Hip Manual Muscle Testing Right Flexion (L2) 3 Fair Adduction 5 Normal External Rotation 4- Good- Internal Rotation 3+ Fair+ Left Flexion (L2) 4- Good- Adduction 5 Normal External Rotation 4 Good Internal Rotation 4- Good- Knee Strength Knee Manual Muscle Testing Right Flexion (S2) 5 Normal Extension (L3) 5 Normal Left Flexion (S2) 5 Normal Extension (L3) 5 Normal Ankle/Foot Strength Ankle and Foot Manual Muscle Testing Right Dorsiflexion (L4) 5 Normal Left Dorsiflexion (L4) 5 Normal PT-OP-Q Treatments Start: 04/23/18 17:21 Freq: Status: Active Protocol: Document 06/11/18 14:35 RCC (Rec: 06/11/18 14:35 RCC [email or web address]) Therapeutic Exercises Supine Exercises 7 Supine Exercise Name SLR- flexion (neutral and LE ER) Side right Reps/Minutes 1x10 each 3 Supine Exercise Name TA facilitation with short LE lift Reps/Minutes 10 each leg 2 Supine Exercise Name SKTC, DKTC, HAMSTRING AND ADDUCTOR STRETCH WITH STRAP Reps/Minutes hold 1 min each side Sidelying Exercises 2 Sidelying Exercise Name hip abd SLR Reps/Minutes 2x10 Sitting Exercises 1 Sitting Exercise Name PPT, marching and hip hike seated on 55 cm ball Side bilateral Reps/Minutes 15 each Standing Exercises 7 Standing Exercise Name lateral step up/down Side bilateral Equipment Used 5 step and rail Reps/Minutes 10 each 3 Standing Exercise Name hip extension Side bilateral Resistance L2 band Equipment Used rail Reps/Minutes 2x10 each Comments VC for l/s and pelvic alignment Manual Therapy Treatment Soft Tissue Mobilization 1 Body Location R piriformis Mobilization Type Strumming Intensity/Depth Moderate Body Position R sidelying Manual Techniques 1 Type MET to correct R posterior ilial rotation Body Position Hooklying PT-OP-R Modalities Start: 04/23/18 17:21 Freq: Status: Active Protocol: Document 06/11/18 14:35 RCC (Rec: 06/11/18 14:35 [email or web address]) Hot Pack/Cold Pack Treatment Hot Pack Location lumbar and SI, R knee Patient Position Hooklying Treatment Duration (minutes) 15 Comments Bolster; post-activity; extra layers (2 extra layers) PT-OP-T Assessment and Plan Start: 04/23/18 17:21 Freq: Status: Active Protocol: Document 06/11/18 14:35 RCC (Rec: 06/11/18 14:35 [email or web address]) Physical Therapy Assessment Assessment Summary Assessment Pt tolerated SLR without c/o pain in low back/SI region, but fatigues rapidly. She was challenged seated on a 55 cm ball, requiring occasional UE assistance to maintain balance , indicating impaired core stability. Physical Therapy Plan Frequency and Duration Frequency of Treatment 2x/Week Duration of Treatment 8 weeks Plan of Care Start Date 04/23/18 Plan of Care End Date 06/18/18 Next Visit Focus/Plan Next Note Type Treatment Note Next Visit Plan core stability, HS strengthening, SI stabilization.
--- NOTE | 2018-06-18 14:28 | PT.OTN ---
Current Diagnoses Pain in right hip (06/18/18) Dorsalgia, unspecified (06/18/18) Physical Therapy Treatment Note PT-OP-A Visit Information Start: 04/23/18 17:21 Freq: Status: Active Protocol: Document 06/18/18 13:45 DCW (Rec: 06/18/18 14:28 DCW [id number]) Out-Patient Physical Therapy Visit Information Visit Information Visit Type Progress Note Visit Start Time 13:45 Visit Stop Time 14:15 Total Visit Minutes 50 Visit Number 21 Number of SLICING MACHINE TENDER Visits 0 Evaluation Information Evaluation Date 12/11/17 PT-OP-B Current Condition Start: 04/23/18 17:21 Freq: Status: Active Protocol: Document 06/18/18 13:45 DCW (Rec: 06/18/18 13:53 DCW [id number]) Current Condition History of Current Condition Onset Date 11/12/17 Current Complaints R hip, low back pain History of Current Condition Pt presents with thoracic to lumbar and SI pain with pain in R pubic region and R shoulder pain after fall on . Pt was on steps of a [employer] travel trailer, and the step shifted, she lost her balance and hit her R knee and R hip/bottom on the step and R shoulder on her car. Pt had pain after and pain has been greater on the L side of low back. Pt finished a bout of prednisone for a heel spur last week (January 2018). Pt is having increased pain during work and having to pace herself and limit lifting with increased bouts of sitting down d/t pain. PT-OP-C Subjective Start: 04/23/18 17:21 Freq: Status: Active Protocol: Document 06/18/18 13:45 DCW (Rec: 06/18/18 14:28 DCW [id number]) OP-PT Subjective Patient Comments Patient Comments Pt reports her shoulder has been doing very well, notes her back is okay, but still pretty sore most of the time. Patient Reported Progress Improving PT-OP-F Manual Assessment Start: 04/23/18 17:21 Freq: Status: Active Protocol: Document 06/18/18 13:45 DCW (Rec: 06/18/18 13:53 DCW [id number]) Manual Assessments Soft Tissue Assessment Soft Tissue Mobility Assessment TTP: R piriformis, bilateral QL and lumbar paraspinals. Joint Mobility Assessment Joint Mobility Assessment R posterior ilial rotation. PT-OP-G Mobility & Gait Start: 04/23/18 17:21 Freq: Status: Active Protocol: Document 06/18/18 13:45 DCW (Rec: 06/18/18 13:53 DCW [id number]) OP Gait Assessment Comments Gait Comments Stiff legged gait with decreased trunk motion throughout. PT-OP-K Range of Motion Start: 04/23/18 17:21 Freq: Status: Active Protocol: Document 06/18/18 13:45 DCW (Rec: 06/18/18 13:53 DCW [id number]) Lumbar Spine Range of Motion Lumbar Spine Active Testing Position standing Flexion 70 Extension 25 Comments no pain with flexion, but pain with extension R low back/SI PT-OP-L Special Tests Start: 04/23/18 17:21 Freq: Status: Active Protocol: Document 04/23/18 15:15 RCC (Rec: 04/23/18 18:13 RCC [email or web address]) Special Tests Hip Special Tests JOSE DAVID Test Results negative bilaterally PT-OP-M Strength Start: 04/23/18 17:21 Freq: Status: Active Protocol: Document 06/18/18 13:45 DCW (Rec: 06/18/18 13:53 DCW [id number]) Hip Strength Hip Manual Muscle Testing Right Flexion (L2) 4- Good- Abduction 5 Normal Adduction 5 Normal External Rotation 4- Good- Internal Rotation 4 Good Left Flexion (L2) 4 Good Abduction 5 Normal Adduction 5 Normal External Rotation 4 Good Internal Rotation 5 Normal Knee Strength Knee Manual Muscle Testing Right Flexion (S2) 5 Normal Extension (L3) 5 Normal Left Flexion (S2) 5 Normal Extension (L3) 5 Normal Ankle/Foot Strength Ankle and Foot Manual Muscle Testing Right Dorsiflexion (L4) 5 Normal Left Dorsiflexion (L4) 5 Normal PT-OP-Q Treatments Start: 04/23/18 17:21 Freq: Status: Active Protocol: Document 06/18/18 13:45 DCW (Rec: 06/18/18 14:28 DCW [id number]) Cardio Equipment Recumbent Elliptical (Foremost) Duration (Minutes) 5 Resistance 3 Therapeutic Exercises Sitting Exercises 1 Sitting Exercise Name PPT, marching and hip hike seated on 55 cm ball Side bilateral Reps/Minutes 15 each Standing Exercises 7 Standing Exercise Name lateral step up/down Side bilateral Equipment Used 5 step and rail Reps/Minutes 10 each Other Exercises 2 Other Exercise Name Resisted Forward/Retro-walking Side bilateral Resistance Green Equipment Used T-band 1 Other Exercise Name Resisted Side-stepping Side bilateral Resistance Green Equipment Used T-band Manual Therapy Treatment Soft Tissue Mobilization 1 Body Location R piriformis Mobilization Type Strumming Intensity/Depth Moderate Body Position R sidelying Joint Mobilizations 1 Joint R SI joint Direction caudal Grade II Body Position Prone Manual Techniques 1 Type MET to correct R posterior ilial rotation Body Position Hooklying PT-OP-R Modalities Start: 04/23/18 17:21 Freq: Status: Active Protocol: Document 06/18/18 13:45 DCW (Rec: 06/18/18 14:28 DCW [id number]) Hot Pack/Cold Pack Treatment Hot Pack Location lumbar and SI Patient Position Hooklying Treatment Duration (minutes) 15 Comments Bolster; post-activity; extra layers (2 extra layers) PT-OP-T Assessment and Plan Start: 04/23/18 17:21 Freq: Status: Active Protocol: Document 06/18/18 13:45 DCW (Rec: 06/18/18 14:28 DCW [id number]) Physical Therapy Assessment Impairments Impairments Activity Tolerance Functional Activities Gait Pain ROM Soft Tissue Mobility Strength Goals Five Impairment LE weakness Retirement Goal (LTG) 5/5 with all tested manual muscle testing to allow pt to ambulate and work without increased pain. LTG Duration 07/16/18 - Improving Four Impairment Gait Electric Razor Mechanic Goal (LTG) Normalize gait to prior level. LTG Duration 07/16/18 Three Impairment pain rated 9/10 @ worst Short Term Goal (STG) 6/10 @ worst STG Duration 07/16/18 Electric Razor Mechanic Goal (LTG) 3/10 @ worst LTG Duration 08/16/18 Two Impairment Modified Oswestry Short Term Goal (STG) score of 26 or less STG Duration 07/16/18 Electric Razor Mechanic Goal (LTG) score of 16 or less LTG Duration 08/16/18 One Impairment work tasks Retirement Goal (LTG) pt will return to participate in a full work day without pain. LTG Duration 08/16/18 Progress Towards Goals Progress Towards Goals Progressing Toward Goals Assessment Summary Assessment Pt displayed increased LE strength, mildly improved pain -free lumbar ROM, and overall complains of less frequent pain. Physical Therapy Plan Frequency and Duration Frequency of Treatment 2x/Week Duration of Treatment 2 months Plan of Care Start Date 06/18/18 Plan of Care End Date 08/18/18 Therapeutic Interventions Therapeutic Interventions Aquatic Therapy Gait Training Home Exercise Program Joint Mobilizations Manual Therapy Neuromuscular Re-education Patient/Caregiver Education Self-Care/Home Management Soft Tissue Mobilization Taping Therapeutic Activities Therapeutic Exercises Modalities Cold Pack/Ice Massage Electric Stimulation Hot Packs Ultrasound Next Visit Focus/Plan Next Note Type Treatment Note Next Visit Plan core stability, HS strengthening, SI stabilization.
--- NOTE | 2018-06-18 14:28 | PT.OPPOC ---
Current Diagnoses Pain in right hip (06/18/18) Dorsalgia, unspecified (06/18/18) Provider Visit Care Team Role Provider Type Zohreh Hollingsworth PA-C Attending Provider Advanced Assembly Press Operator Family Provider Primary Care Provider Specialty: Family Practice Address: [address] [place] [address], [facility] Email: [email or web address] Plan Of Care PT-OP-T Assessment and Plan Start: 04/23/18 17:21 Freq: Status: Active Protocol: Document 06/18/18 13:45 DCW (Rec: 06/18/18 14:28 DCW [id number]) Physical Therapy Assessment Impairments Impairments Activity Tolerance Functional Activities Gait Pain ROM Soft Tissue Mobility Strength Goals Five Impairment LE weakness Correctional Cook Goal (LTG) 5/5 with all tested manual muscle testing to allow pt to ambulate and work without increased pain. LTG Duration 07/16/18 - Improving Four Impairment Gait Correctional Cook Goal (LTG) Normalize gait to prior level. LTG Duration 07/16/18 Three Impairment pain rated 9/10 @ worst Short Term Goal (STG) 6/10 @ worst STG Duration 07/16/18 Correctional Cook Goal (LTG) 3/10 @ worst LTG Duration 08/16/18 Two Impairment Modified Oswestry Short Term Goal (STG) score of 26 or less STG Duration 07/16/18 Correctional Cook Goal (LTG) score of 16 or less LTG Duration 08/16/18 One Impairment work tasks Correctional Cook Goal (LTG) pt will return to participate in a full work day without pain. LTG Duration 08/16/18 Progress Towards Goals Progress Towards Goals Progressing Toward Goals Assessment Summary Assessment Pt displayed increased LE strength, mildly improved pain -free lumbar ROM, and overall complains of less frequent pain. Physical Therapy Plan Frequency and Duration Frequency of Treatment 2x/Week Duration of Treatment 2 months Plan of Care Start Date 06/18/18 Plan of Care End Date 08/18/18 Therapeutic Interventions Therapeutic Interventions Aquatic Therapy Gait Training Home Exercise Program Joint Mobilizations Manual Therapy Neuromuscular Re-education Patient/Caregiver Education Self-Care/Home Management Soft Tissue Mobilization Taping Therapeutic Activities Therapeutic Exercises Modalities Cold Pack/Ice Massage Electric Stimulation Hot Packs Ultrasound Next Visit Focus/Plan Next Note Type Treatment Note Next Visit Plan core stability, HS strengthening, SI stabilization. Plan of Care Dates Plan of Care Start Date 06/18/18 Plan of Care End Date 08/18/18 Please Sign and Return: I have reviewed this Plan of Care and certify that the skilled therapy services above are required to meet the patient?s needs. Physician Signature Date Printed Name and Credentials Clinical Instructor Signature Printed Name and Credentials
--- NOTE | 2018-06-25 14:33 | PT.OTN ---
Current Diagnoses Pain in right hip (06/25/18) Dorsalgia, unspecified (06/25/18) Physical Therapy Treatment Note PT-OP-A Visit Information Start: 04/23/18 17:21 Freq: Status: Active Protocol: Document 06/25/18 14:30 RCC (Rec: 06/25/18 14:33 RCC [email or web address]) Out-Patient Physical Therapy Visit Information Visit Information Visit Type Treatment Note Visit Start Time 13:45 Visit Stop Time 14:33 Total Visit Minutes 48 Visit Number 22 Number of SUPERVISOR RECEIVING AND PROCESSING Visits 0 Evaluation Information Evaluation Date 12/11/17 PT-OP-B Current Condition Start: 04/23/18 17:21 Freq: Status: Active Protocol: Document 06/18/18 13:45 DCW (Rec: 06/18/18 13:53 DCW [id number]) Current Condition History of Current Condition Onset Date 11/12/17 Current Complaints R hip, low back pain History of Current Condition Pt presents with thoracic to lumbar and SI pain with pain in R pubic region and R shoulder pain after fall on . Pt was on steps of a [employer] travel trailer, and the step shifted, she lost her balance and hit her R knee and R hip/bottom on the step and R shoulder on her car. Pt had pain after and pain has been greater on the L side of low back. Pt finished a bout of prednisone for a heel spur last week (January 2018). Pt is having increased pain during work and having to pace herself and limit lifting with increased bouts of sitting down d/t pain. PT-OP-C Subjective Start: 04/23/18 17:21 Freq: Status: Active Protocol: Document 06/25/18 14:30 RCC (Rec: 06/25/18 14:33 RCC [email or web address]) OP-PT Subjective Patient Comments Patient Comments pt c/o R sided SI and hip pain today, L side was also painful yesterday but has decreased. Denies any further injury or trauma. PT-OP-F Manual Assessment Start: 04/23/18 17:21 Freq: Status: Active Protocol: Document 06/25/18 14:30 RCC (Rec: 06/25/18 14:33 RCC [email or web address]) Manual Assessments Soft Tissue Assessment Soft Tissue Mobility Assessment TTP: R piriformis PT-OP-G Mobility & Gait Start: 04/23/18 17:21 Freq: Status: Active Protocol: Document 06/18/18 13:45 DCW (Rec: 06/18/18 13:53 DCW [id number]) OP Gait Assessment Comments Gait Comments Stiff legged gait with decreased trunk motion throughout. PT-OP-K Range of Motion Start: 04/23/18 17:21 Freq: Status: Active Protocol: Document 06/18/18 13:45 DCW (Rec: 06/18/18 13:53 DCW [id number]) Lumbar Spine Range of Motion Lumbar Spine Active Testing Position standing Flexion 70 Extension 25 Comments no pain with flexion, but pain with extension R low back/SI PT-OP-L Special Tests Start: 04/23/18 17:21 Freq: Status: Active Protocol: Document 04/23/18 15:15 RCC (Rec: 04/23/18 18:13 RCC [email or web address]) Special Tests Hip Special Tests JOSE DAVID Test Results negative bilaterally PT-OP-M Strength Start: 04/23/18 17:21 Freq: Status: Active Protocol: Document 06/18/18 13:45 DCW (Rec: 06/18/18 13:53 DCW [id number]) Hip Strength Hip Manual Muscle Testing Right Flexion (L2) 4- Good- Abduction 5 Normal Adduction 5 Normal External Rotation 4- Good- Internal Rotation 4 Good Left Flexion (L2) 4 Good Abduction 5 Normal Adduction 5 Normal External Rotation 4 Good Internal Rotation 5 Normal Knee Strength Knee Manual Muscle Testing Right Flexion (S2) 5 Normal Extension (L3) 5 Normal Left Flexion (S2) 5 Normal Extension (L3) 5 Normal Ankle/Foot Strength Ankle and Foot Manual Muscle Testing Right Dorsiflexion (L4) 5 Normal Left Dorsiflexion (L4) 5 Normal PT-OP-Q Treatments Start: 04/23/18 17:21 Freq: Status: Active Protocol: Document 06/25/18 14:30 RCC (Rec: 06/25/18 14:33 RCC [email or web address]) Gym Equipment Cable Column (Body Solid) Leg Curl Resistance 4 plates Reps/Time 1x12 Therapeutic Exercises Standing Exercises HS stretch Standing Exercise Name HS stretch Side bilateral Equipment Used stairs 7 Standing Exercise Name lateral step up/down Side bilateral Equipment Used 5 step and rail Reps/Minutes 10 each 3 Standing Exercise Name hip extension Side bilateral Resistance L3 band Equipment Used rail Reps/Minutes 2x10 each Other Exercises 2 Other Exercise Name Resisted Forward/Retro-walking Side bilateral Resistance Green Equipment Used T-band 1 Other Exercise Name Resisted Side-stepping Side bilateral Resistance Green Equipment Used T-band Manual Therapy Treatment Soft Tissue Mobilization 1 Body Location R piriformis Mobilization Type Strumming Intensity/Depth Moderate Body Position L sidelying Manual Techniques 1 Type MET to correct R posterior ilial rotation Body Position Hooklying PT-OP-R Modalities Start: 04/23/18 17:21 Freq: Status: Active Protocol: Document 06/25/18 14:30 RCC (Rec: 06/25/18 14:33 [facility] [email or web address]) Hot Pack/Cold Pack Treatment Hot Pack Location lumbar and SI Patient Position Hooklying Treatment Duration (minutes) 10 Comments Bolster; post-activity; extra layers (2 extra layers) PT-OP-T Assessment and Plan Start: 04/23/18 17:21 Freq: Status: Active Protocol: Document 06/25/18 14:30 RCC (Rec: 06/25/18 14:33 [facility] [email or web address]) Physical Therapy Assessment Assessment Summary Assessment Pt with tension in R piriformis today, but improved mobility after manual therapy . Pt tolerated resisted activities well with no c/o pain, but does fatigue rapidly with HS and gluteus medius strengthening. Physical Therapy Plan Frequency and Duration Frequency of Treatment 2x/Week Duration of Treatment 2 months Plan of Care Start Date 06/18/18 Plan of Care End Date 08/18/18 Next Visit Focus/Plan Next Note Type Treatment Note Next Visit Plan core stability, advance HS flexibility and strength.
--- NOTE | 2018-07-02 14:30 | PT.OTN ---
Current Diagnoses Pain in right hip (07/02/18) Dorsalgia, unspecified (07/02/18) Physical Therapy Treatment Note PT-OP-A Visit Information Start: 04/23/18 17:21 Freq: Status: Active Protocol: Document 07/02/18 13:45 DCW (Rec: 07/02/18 14:29 DCW [id number]) Out-Patient Physical Therapy Visit Information Visit Information Visit Type Treatment Note Visit Start Time 13:45 Visit Stop Time 14:35 Total Visit Minutes 50 Visit Number 23 Number of STUDENT Visits 0 Evaluation Information Evaluation Date 12/11/17 PT-OP-B Current Condition Start: 04/23/18 17:21 Freq: Status: Active Protocol: Document 06/18/18 13:45 DCW (Rec: 06/18/18 13:53 DCW [id number]) Current Condition History of Current Condition Onset Date 11/12/17 Current Complaints R hip, low back pain History of Current Condition Pt presents with thoracic to lumbar and SI pain with pain in R pubic region and R shoulder pain after fall on . Pt was on steps of a [employer] travel trailer, and the step shifted, she lost her balance and hit her R knee and R hip/bottom on the step and R shoulder on her car. Pt had pain after and pain has been greater on the L side of low back. Pt finished a bout of prednisone for a heel spur last week (January 2018). Pt is having increased pain during work and having to pace herself and limit lifting with increased bouts of sitting down d/t pain. PT-OP-C Subjective Start: 04/23/18 17:21 Freq: Status: Active Protocol: Document 07/02/18 13:45 DCW (Rec: 07/02/18 14:29 DCW [id number]) OP-PT Subjective Patient Comments Patient Comments Pt reports she is not feeing well, believes she is coming down with something. PT-OP-F Manual Assessment Start: 04/23/18 17:21 Freq: Status: Active Protocol: Document 06/25/18 14:30 RCC (Rec: 06/25/18 14:33 RCC [email or web address]) Manual Assessments Soft Tissue Assessment Soft Tissue Mobility Assessment TTP: R piriformis PT-OP-G Mobility & Gait Start: 04/23/18 17:21 Freq: Status: Active Protocol: Document 06/18/18 13:45 DCW (Rec: 06/18/18 13:53 DCW [id number]) OP Gait Assessment Comments Gait Comments Stiff legged gait with decreased trunk motion throughout. PT-OP-K Range of Motion Start: 04/23/18 17:21 Freq: Status: Active Protocol: Document 06/18/18 13:45 DCW (Rec: 06/18/18 13:53 DCW [id number]) Lumbar Spine Range of Motion Lumbar Spine Active Testing Position standing Flexion 70 Extension 25 Comments no pain with flexion, but pain with extension R low back/SI PT-OP-L Special Tests Start: 04/23/18 17:21 Freq: Status: Active Protocol: Document 04/23/18 15:15 RCC (Rec: 04/23/18 18:13 [facility] [email or web address]) Special Tests Hip Special Tests JOSE DAVID Test Results negative bilaterally PT-OP-M Strength Start: 04/23/18 17:21 Freq: Status: Active Protocol: Document 06/18/18 13:45 DCW (Rec: 06/18/18 13:53 DCW [id number]) Hip Strength Hip Manual Muscle Testing Right Flexion (L2) 4- Good- Abduction 5 Normal Adduction 5 Normal External Rotation 4- Good- Internal Rotation 4 Good Left Flexion (L2) 4 Good Abduction 5 Normal Adduction 5 Normal External Rotation 4 Good Internal Rotation 5 Normal Knee Strength Knee Manual Muscle Testing Right Flexion (S2) 5 Normal Extension (L3) 5 Normal Left Flexion (S2) 5 Normal Extension (L3) 5 Normal Ankle/Foot Strength Ankle and Foot Manual Muscle Testing Right Dorsiflexion (L4) 5 Normal Left Dorsiflexion (L4) 5 Normal PT-OP-Q Treatments Start: 04/23/18 17:21 Freq: Status: Active Protocol: Document 07/02/18 13:45 DCW (Rec: 07/02/18 14:29 DCW [id number]) Gym Equipment Cable Column (Body Solid) Leg Curl Resistance 4 plates Reps/Time 1x12 Therapeutic Ball 1 Exercise Details Pelvic tilt/circles Ball Size/Color Green - 65 cm Body Position Sitting Therapeutic Exercises Supine Exercises 8 Supine Exercise Name Bridging /c Adductor ball squeeze Side bilateral Equipment Used Small pink ball 7 Supine Exercise Name SLR- flexion (neutral and LE ER) Side bilateral Reps/Minutes 1x10 each Sidelying Exercises 2 Sidelying Exercise Name hip abd SLR Reps/Minutes 2x10 1 Sidelying Exercise Name clamshell/reverse clamshell Reps/Minutes 30x2 Other Exercises 2 Other Exercise Name Resisted Forward/Retro-walking Side bilateral Resistance Green Equipment Used T-band 1 Other Exercise Name Resisted Side-stepping Side bilateral Resistance Green Equipment Used T-band Manual Therapy Treatment Soft Tissue Mobilization 1 Body Location R piriformis Mobilization Type Strumming Intensity/Depth Moderate Body Position R sidelying Joint Mobilizations 1 Joint R SI joint Direction caudal Grade II Body Position Prone PT-OP-R Modalities Start: 04/23/18 17:21 Freq: Status: Active Protocol: Document 07/02/18 13:45 DCW (Rec: 07/02/18 14:29 DCW [id number]) Hot Pack/Cold Pack Treatment Hot Pack Location lumbar and SI Patient Position Hooklying Treatment Duration (minutes) 10 Comments Bolster; post-activity; extra layers (2 extra layers) PT-OP-T Assessment and Plan Start: 04/23/18 17:21 Freq: Status: Active Protocol: Document 07/02/18 13:45 DCW (Rec: 07/02/18 14:29 DCW [id number]) Physical Therapy Assessment Impairments Impairments Activity Tolerance Functional Activities Gait Pain ROM Soft Tissue Mobility Strength Goals Five Impairment LE weakness Senior Care Goal (LTG) 5/5 with all tested manual muscle testing to allow pt to ambulate and work without increased pain. LTG Duration 07/16/18 - Improving Four Impairment Gait Senior Care Goal (LTG) Normalize gait to prior level. LTG Duration 07/16/18 Three Impairment pain rated 9/10 @ worst Short Term Goal (STG) 6/10 @ worst STG Duration 07/16/18 Hot Room Attendant Goal (LTG) 3/10 @ worst LTG Duration 08/16/18 Two Impairment Modified Oswestry Short Term Goal (STG) score of 26 or less STG Duration 07/16/18 Senior Care Goal (LTG) score of 16 or less LTG Duration 08/16/18 One Impairment work tasks Hot Room Attendant Goal (LTG) pt will return to participate in a full work day without pain. LTG Duration 08/16/18 Progress Towards Goals Progress Towards Goals Progressing Toward Goals Assessment Summary Assessment Pt likely will require discharge next visit due to insurance limitations, has displayed some overall improvement with stability and strength Physical Therapy Plan Frequency and Duration Frequency of Treatment 2x/Week Duration of Treatment 2 months Plan of Care Start Date 06/18/18 Plan of Care End Date 08/18/18 Next Visit Focus/Plan Next Note Type Treatment Note Next Visit Plan core stability, advance HS flexibility and strength.
--- NOTE | 2018-07-09 14:30 | PT.OTN ---
Current Diagnoses Pain in right hip (07/09/18) Dorsalgia, unspecified (07/09/18) Physical Therapy Treatment Note PT-OP-A Visit Information Start: 04/23/18 17:21 Freq: Status: Active Protocol: Document 07/09/18 14:30 RCC (Rec: 07/11/18 11:59 [facility] [email or web address]) Out-Patient Physical Therapy Visit Information Visit Information Visit Type Treatment Note Visit Start Time 13:45 Visit Stop Time 14:30 Total Visit Minutes 45 Visit Number 24 Number of HANG GLIDING INSTRUCTOR Visits 0 Evaluation Information Evaluation Date 12/11/17 PT-OP-B Current Condition Start: 04/23/18 17:21 Freq: Status: Active Protocol: Document 06/18/18 13:45 DCW (Rec: 06/18/18 13:53 DCW [id number]) Current Condition History of Current Condition Onset Date 11/12/17 Current Complaints R hip, low back pain History of Current Condition Pt presents with thoracic to lumbar and SI pain with pain in R pubic region and R shoulder pain after fall on . Pt was on steps of a [employer] travel trailer, and the step shifted, she lost her balance and hit her R knee and R hip/bottom on the step and R shoulder on her car. Pt had pain after and pain has been greater on the L side of low back. Pt finished a bout of prednisone for a heel spur last week (January 2018). Pt is having increased pain during work and having to pace herself and limit lifting with increased bouts of sitting down d/t pain. PT-OP-C Subjective Start: 04/23/18 17:21 Freq: Status: Active Protocol: Document 07/09/18 14:30 RCC (Rec: 07/11/18 11:59 RCC [email or web address]) OP-PT Subjective Patient Comments Patient Comments Pt would like to attempt some of the machine weights she has available at the gym to her. She notes that she is still having pain, 3-9/10 depending on the situation. Patient Questionnaires Oswestry Low Back Index Oswestry Score 34 Oswestry Impairment 20 to 39% Impaired (Score 20- 39) OP-PT Pain Assessment Comments Pain Comments pain @ worst 9/10, 3/10 at best. PT-OP-F Manual Assessment Start: 04/23/18 17:21 Freq: Status: Active Protocol: Document 06/25/18 14:30 RCC (Rec: 06/25/18 14:33 RCC [email or web address]) Manual Assessments Soft Tissue Assessment Soft Tissue Mobility Assessment TTP: R piriformis PT-OP-G Mobility & Gait Start: 04/23/18 17:21 Freq: Status: Active Protocol: Document 06/18/18 13:45 DCW (Rec: 06/18/18 13:53 DCW [id number]) OP Gait Assessment Comments Gait Comments Stiff legged gait with decreased trunk motion throughout. PT-OP-K Range of Motion Start: 04/23/18 17:21 Freq: Status: Active Protocol: Document 06/18/18 13:45 DCW (Rec: 06/18/18 13:53 DCW [id number]) Lumbar Spine Range of Motion Lumbar Spine Active Testing Position standing Flexion 70 Extension 25 Comments no pain with flexion, but pain with extension R low back/SI PT-OP-L Special Tests Start: 04/23/18 17:21 Freq: Status: Active Protocol: Document 04/23/18 15:15 RCC (Rec: 04/23/18 18:13 [facility] [email or web address]) Special Tests Hip Special Tests JOSE DAVID Test Results negative bilaterally PT-OP-M Strength Start: 04/23/18 17:21 Freq: Status: Active Protocol: Document 07/09/18 14:30 RCC (Rec: 07/11/18 11:59 [facility] [email or web address]) Hip Strength Hip Manual Muscle Testing Right Flexion (L2) 4 Good Abduction 5 Normal Adduction 5 Normal External Rotation 4 Good Internal Rotation 4+ Good+ Left Flexion (L2) 5 Normal Abduction 5 Normal Adduction 5 Normal External Rotation 4+ Good+ Internal Rotation 5 Normal PT-OP-Q Treatments Start: 04/23/18 17:21 Freq: Status: Active Protocol: Document 07/09/18 14:30 RCC (Rec: 07/11/18 11:59 RCC [email or web address]) Gym Equipment Cable Column (Body Solid) Leg Extension Resistance 3 plates Reps/Time 1x12 Leg Curl Resistance 4 plates Reps/Time 1x12 Therapeutic Exercises Supine Exercises LTR Supine Exercise Name lower trunk roation with 65 cm ball Side bilateral Reps/Minutes 15 8 Supine Exercise Name short Bridging on 65 cm ball Side bilateral Reps/Minutes 2x10 2 Supine Exercise Name SKTC, DKTC, HAMSTRING AND ADDUCTOR STRETCH Reps/Minutes hold 1 min each side Sitting Exercises HS curl and SAQ Sitting Exercise Name hamstring curl and short arc quad Side bilateral Resistance L2 Reps/Minutes 10 each Other Exercises 1 Other Exercise Name Resisted Side-stepping Side bilateral Resistance Green Equipment Used T-band Manual Therapy Treatment Soft Tissue Mobilization 1 Body Location R piriformis Mobilization Type Strumming Intensity/Depth Moderate Body Position R sidelying Manual Techniques 1 Type MET to correct R posterior ilial rotation Body Position Hooklying Other Other Manual Treatments LE MMT PT-OP-R Modalities Start: 04/23/18 17:21 Freq: Status: Active Protocol: Document 07/02/18 13:45 DCW (Rec: 07/02/18 14:29 DCW [id number]) Hot Pack/Cold Pack Treatment Hot Pack Location lumbar and SI Patient Position Hooklying Treatment Duration (minutes) 10 Comments Bolster; post-activity; extra layers (2 extra layers) PT-OP-T Assessment and Plan Start: 04/23/18 17:21 Freq: Status: Active Protocol: Document 07/09/18 14:30 RCC (Rec: 07/11/18 11:59 RCC [email or web address]) Physical Therapy Assessment Goals Five Impairment LE weakness Wheelman Goal (LTG) 5/5 with all tested manual muscle testing to allow pt to ambulate and work without increased pain. LTG Duration 07/16/18 Four Impairment Gait Custodial Goal (LTG) Normalize gait to prior level. LTG Duration 07/16/18 Three Impairment pain rated 9/10 @ worst Short Term Goal (STG) 6/10 @ worst STG Duration 07/16/18 Custodial Goal (LTG) 3/10 @ worst LTG Duration 08/16/18 Two Impairment Modified Oswestry Short Term Goal (STG) score of 26 or less STG Duration 07/16/18 Custodial Goal (LTG) score of 16 or less LTG Duration 08/16/18 One Impairment work tasks Wheelman Goal (LTG) pt will return to participate in a full work day without pain. LTG Duration 08/16/18 Progress Towards Goals Progress Comments Pt is able to work full days with increased pain occasionally. Her pain ranges from 3-9 out of 10. Her gait is near normal when pain is low, but still antalgic when high levels of pain noted. Her score on the Modified Oswestry is 34%, which is an improvement (17/50). Hip strength is still <5/5 with MMT, but improving. Assessment Summary Assessment Overall, pt has improved with skilled physical therapy intervention. We reviewed appropriate exercises for her HEP, including activities she can perform at the gym (leg curl and leg extension). Pt's pain is still high at time, rating 9/10 at worst, but less frequently at this level. Pt would benefit from continued physical therapy, however, due to insurance limitations this is her final physical therapy visit, as no other visits can be authorized. Physical Therapy Plan Discharge Physical Therapy Discharge Comments Insurance visit limitations reached, no further authorized visits.
== END 2018-10-07 10:27 ==
LOC: PHYS 13:45
PROVIDERS: Family Provider Physician Assistant; PCP Physician Assistant; Visit Provider Physician Assistant
DX: M54.9 Dorsalgia, unspecified (principal); M25.551 Pain in right hip
CPT/HCPCS: 97010; 97110; 97140

== ENCOUNTER → 2018-08-13 07:46 | Outpatient (CLI) | payer OTHER, SELFPAY ==
--- NOTE | 2018-08-13 | DI.MG.S_ITS ---
BILATERAL DIGITAL SCREENING MAMMOGRAM 3D/2D WITH CAD: 08/13/2018 CLINICAL: Routine screening. Comparison is made to exams dated: 08/01/2016 mammogram and 07/18/2016 mammogram - [facility]. There are scattered fibroglandular elements in both breasts. Current study was also evaluated with a Computer Aided Detection (CAD) system. No significant masses, calcifications, or other findings are seen in either breast. There has been no significant interval change. IMPRESSION: NEGATIVE There is no mammographic evidence of malignancy. A 1 year screening mammogram is recommended. This exam was interpreted at Station ID: [id number]. NOTE: For mammograms, a report in lay terms will be sent to the patient. Approximately 15% of breast malignancies will not be visualized mammographically. In the management of a palpable breast mass, a negative mammogram must not discourage biopsy of a clinically suspicious lesion. Electronically Signed By: Tere grace/eri:08/13/2018 09:11:01 letter sent: Normal Exam ACR BI-RADS Category 1: Negative [id number]
== END ==
PROVIDERS: PCP Family Medicine; Visit Provider Family Medicine
DX: Z12.31 Encounter for screening mammogram for malignant neoplasm of breast (principal)
CPT/HCPCS: 77063; 77067

== ENCOUNTER → 2018-11-17 13:17 | Outpatient (CLI) | payer OTHER, SELFPAY | PROVIDERS: PCP Student in an Organized Health Care Education/Training Program; Visit Provider Physician Assistant | DX: R19.7 Diarrhea, unspecified (principal) ==

== ENCOUNTER → 2018-11-17 13:28 | Outpatient (CLI) | payer OTHER, SELFPAY ==
[2018-11-17 14:05] LABS: Add Manual Diff / Slide Review NO; Basophils Absolute Auto 100 /uL (0-100); Basophils Percent Auto 0.6 % (0-2); Eosinophils Absolute Auto 200 /uL (0-450); Eosinophils Percent Auto 1.6 % (2-4); Hematocrit 45.8 % (36-46); Hemoglobin 15.2 g/dL (12.0-16.0); Lymphocytes Absolute Auto 2400 /uL (1100-4500); Lymphocytes Percent Auto 24.1 % (25-40); Mean Corpuscular HGB Conc 33.2 % (30-36); Mean Corpuscular Hemoglobin 30.3 PG (26-34); Mean Corpuscular Volume 91.1 fL (80-100); Monocytes Absolute Auto 600 /uL (0-900); Monocytes Percent Auto 5.7 % (3-14); Neutrophils Absolute Auto 6800 /uL (1500-7000); Platelet Count 309 X10^3/uL (150-400); Red Blood Cell Count 5.03 X10^6/uL (4.0-5.2); Red Cell Distribution Width 16.9 % (11.6-14.8)
[2018-11-17 14:32] LABS: Alanine Aminotransferase 35 IU/L (9-52); Albumin 4.5 g/dL (3.5-5.0); Albumin Globulin Ratio 1.5 (1.0-2.8); Alkaline Phosphatase 93 U/L (38-126); Aspartate Aminotransferase 29 IU/L (14-36); BUN Creatinine Ratio 16.3 (6-22); Bilirubin Total 0.3 mg/dL (0.2-1.3); Blood Urea Nitrogen 13 mg/dL (7-17); Calcium 9.8 mg/dL (8.4-10.2); Carbon Dioxide 27 mmol/L (22-32); Chloride 101 mmol/L (98-107); Estimated Glomerular Filt Rate > 60.0 mL/min (>60); Globulin 3.1 g/dL (1.7-4.1); Glucose 96 mg/dL (70-100); HEMOLYSIS < 15 (0-50); Potassium 4.7 mmol/L (3.4-5.1); Sodium 140 mmol/L (137-145); Total Protein 7.6 g/dL (6.3-8.2)
== END ==
PROVIDERS: PCP Student in an Organized Health Care Education/Training Program; Visit Provider Physician Assistant
DX: R19.7 Diarrhea, unspecified (principal)
CPT/HCPCS: 36415; 80053; 85025; 87177

== ENCOUNTER → 2019-03-19 07:18 | Outpatient (CLI) | payer OTHER, SELFPAY ==
[2019-03-23 21:18] LABS: Calprotectin, Stool 371.6 mcg/g
== END ==
PROVIDERS: PCP Student in an Organized Health Care Education/Training Program; Visit Provider Student in an Organized Health Care Education/Training Program
DX: R19.7 Diarrhea, unspecified (principal)
CPT/HCPCS: 83993; 87230

== ENCOUNTER → 2019-05-06 10:45 | Outpatient (CLI) | payer OTHER, SELFPAY ==
--- NOTE | 2019-05-06 10:48 | DI.RAD.S_ITS ---
PROCEDURE: XR LUMBAR SPINE MIN 4V INDICATIONS: Lumbosacral spondylosis TECHNIQUE: 5 views of the lumbar spine were acquired. COMPARISON: [facility], MR, MR LUMBAR SPINE WO CON, 03/10/2018, 14:33. [facility], CR, L-SPINE MINIMUM 4 VIEWS, 05/01/2017, 14:55. FINDINGS: Bones: 5 nonrib-bearing vertebrae are present. There is grade I L4-L5 anterolisthesis. Degenerative changes including intervertebral disc space narrowing, endplate sclerosis, osteophytosis, and facet sclerosis are present throughout the lumbar spine. No vertebral body compression fractures. No suspicious bony lesions. Soft tissues: Overlying bowel gas pattern is normal. No suspicious soft tissue calcifications. Oblique images: There is a questionable pars intra-articularis defect on the right at L4-5 visualized on the oblique view. No other pars interarticularis defects visualized. IMPRESSION: 1. Spondylolisthesis. Questionable right-sided spondylolysis at L4-5. If further characterization is warranted, CT of the lumbar spine to be used. 2. Diffuse degenerative change of the lumbar spine. Dictated by: Tere Oneil M.D. on 05/06/2019 at 11:17 Approved by: Tere Oneil M.D. on 05/06/2019 at 11:24
[2019-05-06 12:24] LABS: Erythrocyte Sedimentation Rate 13 MM/HR (0-20)
[2019-05-06 12:29] LABS: C-Reactive Protein Quant 1.8 mg/dL (<1.0)
[2019-05-08 15:23] LABS: ANA Screen, IFA Negative (Negative)
== END ==
PROVIDERS: PCP Student in an Organized Health Care Education/Training Program; Visit Provider Physical Medicine & Rehabilitation
DX: M47.817 Spondylosis without myelopathy or radiculopathy, lumbosacral region (principal); M47.816 Spondylosis without myelopathy or radiculopathy, lumbar region; G89.29 Other chronic pain; M54.5 Low back pain
CPT/HCPCS: 36415; 72110; 85651; 86038; 86140

== ENCOUNTER 2019-10-14 07:59 | Outpatient (CLI) | payer OTHER, SELFPAY ==
[2019-10-14] VITALS (11 sets, daily range): BP systolic 100–129; BP diastolic 59–80; PULSE 66–82; RESP 16–18; TEMP 36.4; O2SAT 96–100
--- NOTE | 2019-10-14 08:00 | DI.RAD.S_ITS ---
PROCEDURE: PAIN L/S FACET INJ/BLK 1ST [place] COMPARISON: None. INDICATIONS: SPONDYLOSIS Fluoroscopic spot filming was performed to verify placement of spinal needles at the L4-L5, L5-S1 level(s), as labeled on the films. Appropriate location(s) of the needle tip(s) was confirmed by injection of iodinated contrast. Dictated by: Maurice Pepper M.D. on 10/14/2019 at 11:10 Approved by: Maurice Pepper M.D. on 10/14/2019 at 11:18
[2019-10-14] MEDS: MIDAZOLAM 5 MG/5 ML VIAL IV (09:51)
[2019-10-14] MEDS: fentaNYL 100 MCG/2 ML INJ 50 MCG IV (09:51)
[2019-10-14] MEDS: IOPAMIDOL 15 ML VIAL 3 ML INJ (09:55)
[2019-10-14] MEDS: LIDOCAINE 1% 20 ML 10 ML INJ (09:56)
[2019-10-14] MEDS: BUPIVACAINE 0.5% (PF) VIAL 2 ML INJ (09:56)
[2019-10-14] MEDS: BETAMETHASONE 30 MG/5 ML MDV 12 MG INJ (09:56)
--- NOTE | 2019-10-14 10:02 | PC.NURSE ---
ASSISTING PT OFF TABLE AND TRANSPORTING TO POST PROC AREA IN STABLE CONDITION. PASSING RN CARE OF PT OFF TO AGUILA Schaeffer RN
--- NOTE | 2019-10-14 10:09 | P.PCN_ITS ---
Procedures Date/Time Date of procedure: 10/14/19 Time of procedure: 10:09 General Procedure description: PREOP DIAGNOSIS 1. FACET ARTHROPATHY 2. AXIAL LBP 3. MULTILEVEL DDD POST OP DIAGNOSIS 1. FACET ARTHROPATHY 2. AXIAL LBP 3. MULTILEVEL DDD PROCEDURES 1. FLUORSCOPICALLY GUIDED CONTRAST CONTROLLED FACET JOINT INJECTIONS BILATERAL L4/5, L5/S1 PHYSICIAN: Sandro Coronel, DO INDICATIONS Mohsen is referred by Dr. Yates for treatment of Axial LBP FINDINGS Multilevel Facet Arthropathy with Clinically significant axial LBP DESCRIPTION OF PROCEDURE Fluoroscopically guided, contrast-controlled bilateral L4/5, L5/S1 facet joint injections. Following review of allergy and review of potential side effects and complications, including, but not necessarily limited to, infection, allergic reaction, local tissue breakdown, stroke, temporary or permanent nerve injury, paralysis, and possible , the patient indicated that the patient understood and agreed to proceed. An informed consent document was signed by the patient, witnessed by a nurse, and placed in the patient's chart. Additionally, other treatment options including medications, modalities, and physical therapy were reviewed with the patient. After review of previous anaesthesic history and IV conscious sedation the patient was deemed safe to proceed with todays procedure with IV conscious sedation as ASA class II designation. Safety time-out was performed to confirm patient ID, procedure to be performed and site of procedure. IV sedation was accomplished with a combination of 3mg of Versed and 50mcg of Fentanyl was administered by the RN after DO order, titrated to patient comfort during the course of the procedure while the patient remained responsive to all verbal commands In the prone position, following sterile prep and drape of the lumbar region, the posterior aspect of the L4/5, L5/S1 facet joints were identified fluoroscopically. The skin was anesthetized via a 25-gauge 1.5-inch needle with 1% lidocaine solution into the corresponding facet joints. At this point, a 22- gauge 3.5-inch spinal needle was atraumatically introduced and advanced under fluoroscopic guidance into the corresponding facet joints. Following negative a spiration, injections of approximately 0.2cc of Isovue 200 confirmed interarticular placement without vascular uptake. The identical procedure was then performed at the L4/5, L5/S1 facet joints on the left. Radiological data, including multiple fluoroscopic views of the lumbosacral spine, reveal a spinal needle at the L4/5, L5/S1 facet joints bilaterally. Subsequent views show flow of contrast material both superiorly and inferiorly within the joint space without vascular or intrathecal uptake. At this point, a total of 0.5cc including a mixture of 0.25cc Marcaine and 0.25cc betamethasone was injected without complication into each of the corresponding facet joints. The patient tolerated the procedure well without signs or symptoms of complications prior to transfer to the recovery area continued monitoring without incident. The patient was then transferred to the recovery area where they were observed for an appropriate period of time after the injection. The patient reported a VAS score of 7 prior to the procedure and a post- procedure VAS of 0. Total Fluoroscopy Time: 20.3 seconds Total Conscious Sedation Time: 24min POST OP INSTRUCTIONS The patient was provided a Pain Log to continue to record their response to the target-specific procedure prior to follow-up visit with their referring physician. Additionally, specific post-injection care instructions and a contact number to our office were provided if concerns arise regarding possible complications associated with the procedure are suspected. Sandro Coronel DO Complications: none
--- NOTE | 2019-10-14 16:43 | PC.NURSE ---
Post op discharge note: Patient arrived a 1011. Awake and alert. VSS on arrival. Hand of report received from Philip Mehta RN. Pain level 0/10.
== END 2019-10-14 10:40 | disposition home or self-care (01) ==
PROVIDERS: PCP Student in an Organized Health Care Education/Training Program; Visit Provider Physical Medicine & Rehabilitation
DX: M47.817 Spondylosis without myelopathy or radiculopathy, lumbosacral region (principal); M47.816 Spondylosis without myelopathy or radiculopathy, lumbar region; M54.5 Low back pain; M51.36 Other intervertebral disc degeneration, lumbar region; M51.37 Other intervertebral disc degeneration, lumbosacral region
CPT/HCPCS: 64493; 64494; 99152; J0702; J2250; J3010

== ENCOUNTER → 2020-04-20 13:00 | Outpatient (CLI) | payer OTHER, SELFPAY ==
--- NOTE | 2020-04-20 13:04 | DI.RAD.S_ITS ---
PROCEDURE: XR CERVICAL SPINE 4V OR 5V INDICATIONS: neck s/p fall TECHNIQUE: 5 views of the cervical spine acquired. COMPARISON: None. FINDINGS: Bones: No fractures or dislocations to the C7-T1 level. Degenerative endplate changes are noted at C5-6 and C6-7 levels. Oblique images demonstrate no significant bony foraminal stenoses. Soft tissues: No prevertebral soft tissue swelling. IMPRESSION: Mild degenerative disc disease in lower cervical spine. No significant bony foraminal stenosis. No fracture or dislocation. Dictated by: Ervin Trotter M.D. on 04/20/2020 at 13:33 Approved by: Ervin Trotter M.D. on 04/20/2020 at 13:33
== END ==
PROVIDERS: PCP Student in an Organized Health Care Education/Training Program; Referring Provider Physical Medicine & Rehabilitation; Visit Provider Physical Medicine & Rehabilitation
DX: M50.322 Other cervical disc degeneration at C5-C6 level (principal)
CPT/HCPCS: 72050

== ENCOUNTER → 2020-05-11 12:44 | Outpatient (CLI) | payer OTHER, SELFPAY ==
--- NOTE | 2020-05-11 12:45 | DI.RAD.S_ITS ---
PROCEDURE: XR LUMBAR SPINE MIN 4V INDICATIONS: progressive LBP TECHNIQUE: 4 views of the lumbar spine were acquired. COMPARISON: [facility], , XR LUMBAR SPINE MIN 4V, 05/06/2019, 11:15. FINDINGS: Bones: No fracture or focal osseous destruction. Grade 1 anterolisthesis of L4 on L5. Multilevel degenerative endplate sclerosis and spurring. Diffuse facet arthropathy. Moderate narrowing of the lumbar disc spaces diffusely. Soft tissues: Overlying bowel gas pattern is normal. No suspicious soft tissue calcifications. Oblique images: No pars defects. IMPRESSION: Multilevel lumbar disc degeneration, grossly unchanged. Grade 1 anterolisthesis of L4 on L5 as before Dictated by: Maurice Pepper M.D. on 05/11/2020 at 13:40 Approved by: Maurice Pepper M.D. on 05/11/2020 at 13:42
== END ==
PROVIDERS: PCP Student in an Organized Health Care Education/Training Program; Referring Provider Physical Medicine & Rehabilitation; Visit Provider Physical Medicine & Rehabilitation
DX: M47.817 Spondylosis without myelopathy or radiculopathy, lumbosacral region (principal); M54.5 Low back pain; M51.36 Other intervertebral disc degeneration, lumbar region; M43.16 Spondylolisthesis, lumbar region
CPT/HCPCS: 72110

== ENCOUNTER → 2020-05-18 13:34 | Outpatient (CLI) | payer OTHER, SELFPAY ==
[2020-05-18 14:43] LABS: BUN Creatinine Ratio 18.9 (6-22); Blood Urea Nitrogen 14 mg/dL (7-17); Calcium 9.9 mg/dL (8.4-10.2); Carbon Dioxide 34 mmol/L (22-32); Chloride 101 mmol/L (98-107); Estimated Glomerular Filt Rate > 60.0 mL/min (>60); Glucose 86 mg/dL (70-100); HEMOLYSIS < 15 (0-50); Sodium 139 mmol/L (137-145)
[2020-05-18 14:45] LABS: Potassium 5.5 mmol/L (3.4-5.1)
== END ==
PROVIDERS: PCP Student in an Organized Health Care Education/Training Program; Referring Provider Student in an Organized Health Care Education/Training Program; Visit Provider Student in an Organized Health Care Education/Training Program
DX: Z79.1 Long term (current) use of non-steroidal anti-inflammatories (NSAID) (principal)
CPT/HCPCS: 36415; 80048

== ENCOUNTER → 2020-05-29 11:42 | Outpatient (CLI) | payer OTHER, SELFPAY ==
[2020-05-30 11:38] LABS: COVID19 Sendout Not Detected (Not Detect)
== END ==
PROVIDERS: PCP Student in an Organized Health Care Education/Training Program; Visit Provider Physician Assistant
DX: Z11.59 Encounter for screening for other viral diseases (principal)
CPT/HCPCS: 87635

== ENCOUNTER 2020-06-01 08:53 | Outpatient (CLI) | payer OTHER, SELFPAY ==
[2020-06-01] VITALS (8 sets, daily range): BP systolic 99–133; BP diastolic 56–85; PULSE 73–91; RESP 8–24; TEMP 36.6; O2SAT 94–100
--- NOTE | 2020-06-01 08:55 | DI.RAD.S_ITS ---
PROCEDURE: PAIN L/S FACET INJ/BLK 1ST [place] COMPARISON: [facility], , PAIN L/S FACET INJ/BLK 1ST [place], 10/14/2019, 9:52. INDICATIONS: SPONDYLOSIS FINDINGS: Fluoroscopic spot filming was performed to verify placement of spinal needles at the L4, L5, S1 level(s), as labeled on the films. Appropriate location(s) of the needle tip(s) was confirmed by injection of iodinated contrast. Dictated by: Maurice Pepper M.D. on 06/01/2020 at 11:22 Approved by: Maurice Pepper M.D. on 06/01/2020 at 11:22
[2020-06-01] MEDS: MIDAZOLAM 5 MG/5 ML VIAL IV (09:50)
[2020-06-01] MEDS: fentaNYL 100 MCG/2 ML INJ 50 MCG IV (09:50)
[2020-06-01] MEDS: LIDOCAINE 1% 20 ML 10 ML INJ (10:00)
[2020-06-01] MEDS: IOPAMIDOL 15 ML VIAL 3 ML INJ (10:00)
[2020-06-01] MEDS: BUPIVACAINE 0.5% (PF) VIAL 5 ML INJ (10:01)
--- NOTE | 2020-06-01 10:10 | P.PCN_ITS ---
Date/Time/Diagnoses Date of procedure: 06/01/20 Time of procedure: 10:10 Pre-procedure diagnosis: 1. FACET ARTHROPATHY Post-procedure diagnosis: same Procedure Notes Procedure: 1. BILATERAL- L4, L5 and S1 DIAGNOSTIC MB BLOCKS with LA Anesthetic Indications: Mohsen is referred by Dr. Yates for treatment of Bilateral Axial LBP. Physician: Sandro Coronel Total Fluoroscopy time (seconds): 21 Total sedation minutes: 17 Complications: none Procedure in detail & Post-procedure care: DESCRIPTION OF PROCEDURE Fluoroscopically guided, contrast-controlled bilateral L4, L5 and S1 medial branch blocks with 0.5cc of 0.5% Marcaine. Following review of allergy and review of potential side effects and complications, including, but not necessarily limited to, infection, allergic reaction, local tissue breakdown, nerve injury, paralysis, stroke and possible , the patient indicated that the patient understood and agreed to proceed. An informed consent document was signed by the patient, witnessed by a nurse, and placed in the patient's chart. After review of previous anaesthesic history and IV conscious sedation the patient was deemed safe to proceed with today's procedure with IV conscious sedation as ASA class II designation. Safety time-out was performed to confirm patient ID, procedure to be performed and site of procedure. IV sedation was accomplished with a combination of 4mg of Versed and 50mcg of Fentanyl was administered by the RN after DO order, titrated to patient comfort during the course of the procedure while the patient remained responsive to all verbal commands In the prone position, following sterile prep and drape of the lumbar region, the right L4, L5 and S1 anatomical location of the medial branch of the dorsal ramus was identified fluoroscopically. Subsequently an anesthetic skin wheal using 1% lidocaine solution was initiated at each of the anatomical spots. Subsequently then a 22-gauge 3.5-inch spinal needle was atraumatically introduced and advanced under fluoroscopic guidance at each of the corresponding sites at the right L4, L5 and S1 MB. After negative aspiration, 0.2cc of Isovue 200 was injected, confirming placement without vascular or intrathecal uptake. Subsequently then 0.5cc of 0.5% Marcaine solution was injected at each of the corresponding sites at the right L4, L5 and S1 medial branch locations. The identical procedure was replicated on the left. The patient tolerated the procedure well without signs or symptoms of complications prior to transfer to the recovery area continued monitoring without incident. Post-procedure, the patient was monitored initiating provocative activities to measure the amount of relief from block of the facetogenic pain. The patient reported a VAS of 7 prior to the procedure and a post-procedure VAS of 1. It has been a pleasure to assist in the diagnostic and therapeutic care of your patient. POST OP INSTRUCTIONS The patient was provided with a Pain Log to complete over the next several hours and subsequent days prior to the patient's follow up with the ordering physician. If the patient has community relations representative relief to the solution applied, then they may be a candidate for medial branch rhizotomy. The patient is aware, was provided, once again, with a Pain Log and will follow up with the referring physician for review and clinical correlation
== END 2020-06-01 10:35 | disposition home or self-care (01) ==
LOC: RAD 08:53
PROVIDERS: PCP Student in an Organized Health Care Education/Training Program; Referring Provider Student in an Organized Health Care Education/Training Program; Visit Provider Physical Medicine & Rehabilitation
DX: M47.817 Spondylosis without myelopathy or radiculopathy, lumbosacral region (principal); M47.816 Spondylosis without myelopathy or radiculopathy, lumbar region; M54.5 Low back pain
CPT/HCPCS: 64493; 64494; 99152; J2250; J3010

== ENCOUNTER 2020-10-05 11:15 | Outpatient (RCR) | payer OTHER, SELFPAY ==
--- NOTE | 2020-06-12 15:54 | PT.OIE ---
Current Diagnoses Pain in right shoulder (06/12/20) Stiffness of unspecified joint, not elsewhere classified (06/12/20) Spondylosis without myelopathy or radiculopathy, cervical region (06/12/20) Cervicalgia (06/12/20) Past Medical History (Last Updated 04/26/20 @ 16:18 by Sandro Coronel DO) Acute neck pain (Acute) Back strain (Acute) Chicken pox (Resolved 1969) Chronic back pain (Chronic 1998) Chronic headaches (Chronic) Dry skin (Chronic 2014) Facet arthropathy, cervical (Acute) Fecal incontinence (Chronic 1998) Fibroids (Chronic 1998) Foot pain (Chronic 1998) Glaucoma (Chronic 1994) Hand contusion (Acute) Hip pain (Chronic) IBS (irritable bowel syndrome) (Chronic 1998) Irregular periods/menstrual cycles (Chronic 2014) Knee contusion (Acute) Migraines (Chronic) Neck pain (Chronic) Peptic ulcer disease (Chronic 1986) Thigh pain (Chronic) Urinary incontinence (Chronic 1993) Past Surgical History (Last Reviewed 04/26/20 @ 16:14 by Sandro Coronel DO) Anesthesia (Resolved) History of appendectomy (Resolved 1993) History of bladder suspension procedure (Resolved 1983) History of bladder suspension procedure (Resolved ~1985) History of right knee surgery (Resolved 1978) History of right oophorectomy (Resolved 1993) History of tubal ligation (Resolved 1993) Visit Care Team Role Provider Type Rustam Yates MD Attending Provider Physician Primary Care Provider Referring Provider Specialty: Internal Medicine Address: [address] [place] [address] Email: [email or web address] Physical Therapy Initial Evaluation PT-OP-A Visit Information Start: 06/12/20 15:17 Freq: Status: Active Protocol: Document 06/12/20 14:30 DCW (Rec: 06/12/20 15:53 DCW [id number]) Out-Patient Physical Therapy Visit Information Visit Information Visit Type Initial Evaluation Visit Start Time 14:30 Visit Stop Time 15:15 Total Visit Minutes 45 Visit Number 1 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 Pt reports that she tried to step up onto a sidewalk, but caught her toe, hopped a few times to try to regain her balance, and then fell and hit her back. Pt reports she messed up my upper back and neck, and she has noticed a grinding in her neck. Pt does note that her neck is getting better, but still gives her pain with lifting laundry and groceries. Pt also reports some right shoulder pain with some positions and occasionally when lifting. Prior Treatments and Tests Prior PT treatment of low back Cervical X-ray: IMPRESSION: Mild degenerative disc disease in lower cervical spine. No significant bony foraminal stenosis. No fracture or dislocation. Per: Dionisio Naik on 04/20/2020. Lumbar x-ray: IMPRESSION: Multilevel lumbar disc degeneration, grossly unchanged. Grade 1 anterolisthesis of L4 on L5 as before. Per Ruby Kimbrough on 05/11/2020. Fluoroscopically guided, contrast-controlled bilateral L4, L5 and S1 medial branch blocks with 0.5cc of 0.5% Marcaine on 06/01/[address] Coronel PT-OP-C Subjective Start: 06/12/20 15:17 Freq: Status: Active Protocol: Document 06/12/20 14:30 [facility] (Rec: 06/12/20 15:53 [facility] [id number]) OP-PT Subjective Patient Comments Patient Comments I will admit it is getting better, but it still bothers me. Patient Reported Progress Improving Patient Questionnaires Neck Disability Index NDI Score 1/50 Neck Disability Index Impairment 1 to 19% Impaired (Score 1-9) Quick Dash- Upper Extremity Quick Dash UE Score 15.91% Quick Dash UE Impairment 1 to 19% Impaired (Score 1-19) OP-PT Pain Assessment Pain Assessment Grid Paper Pain Assessment Grid Completed Yes Location Posterior Neck Intensity 4 Scale Used Numeric (0 - 10) PT-OP-F Manual Assessment Start: 06/12/20 15:17 Freq: Status: Active Protocol: Document 06/12/20 14:30 DCW (Rec: 06/12/20 15:53 DCW [id number]) Manual Assessments Soft Tissue Assessment Soft Tissue Mobility Assessment Moderate Tone, tenderness to palpation 2/4: Pain with wincing; B suboccipitals, B Rhomboids, L Scalenes, L Upper Trap Severe tone, tenderness to palpation 3/4: Wincing and withdraw; R upper trap, R scalenes, R levator Joint Mobility Assessment Joint Mobility Assessment Hypomobility of cervical spine during joint mobilization PT-OP-K Range of Motion Start: 06/12/20 15:17 Freq: Status: Active Protocol: Document 06/12/20 14:30 DCW (Rec: 06/12/20 15:53 DCW [id number]) Cervical Spine Range of Motion Cervical Spine Active Degrees Testing Position Sitting Flexion 35 Extension 46 Rotation Left 36 Rotation Right 54 Lateral Flexion Left 30 Lateral Flexion Right 28 ROM Limitations Soft Tissue Tightness,Bony Restriction,Muscle Tone,Pain Shoulder Goniometric Range of Motion Shoulder Bilateral Active Shoulder ROM WFL Yes PT-OP-L Special Tests Start: 06/12/20 15:17 Freq: Status: Active Protocol: Document 06/12/20 14:30 DCW (Rec: 06/12/20 15:53 DCW [id number]) Special Tests Cervical Spine Special Tests Traction Test Results Improves pain Spurling's Test Test Results Positive bilateral Passive Neck Flexion Test Results Cervical Pain Slump Test Results Cervical pain Foraminal Compression Test Results Positive bilateral PT-OP-M Strength Start: 06/12/20 15:17 Freq: Status: Active Protocol: Document 06/12/20 14:30 DCW (Rec: 06/12/20 15:53 DCW [id number]) Cervical Spine Strength Cervical Spine Manual Muscle Testing Testing Position Supine Flexion (C1-2) 4 Good Extension 4+ Good+ Rotation Left 4 Good Rotation Right 4 Good Lateral Flexion Left (C3) 4+ Good+ Lateral Flexion Right (C3) 4+ Good+ PT-OP-Q Treatments Start: 06/12/20 15:17 Freq: Status: Active Protocol: Document 06/12/20 14:30 DCW (Rec: 06/12/20 15:53 DCW [id number]) Manual Therapy Treatment Soft Tissue Mobilization 2 Body Location B Upper Trap Mobilization Type Strumming,Sustained Pressure Intensity/Depth Moderate Body Position Supine 1 Body Location Suboccipitals Mobilization Type Strumming,Sustained Pressure Intensity/Depth Moderate Body Position Supine PT-OP-T Assessment and Plan Start: 06/12/20 15:17 Freq: Status: Active Protocol: Document 06/12/20 14:30 DCW (Rec: 06/12/20 15:53 DCW [id number]) Physical Therapy Assessment Rehab Potential Rehabilitation Potential Good Evaluation Complexity Number of Personal Factors/Comorbidities 1-2 Number of Body Systems Impaired 3 Clinical Presentation at Evaluation Stable Impairments Impairments Functional Mobility,Pain,ROM, Soft Tissue Mobility,Strength, Tone Goals Three Impairment Severe (R Upper Trap, Scalenes , Levator) and Mod tone in neck musculature Custodial Goal (LTG) Pt to present with mild tone and tenderness to palpation / : complaint of pain in bilateral UT, Scalenes, Rhomboids, and levators LTG Duration 08/13/20 Two Impairment Limited cervical ROM (35? flexion, 36? L Rotation) Custom Dressmaker Goal (LTG) Pt to exhibit improved cervical AROM to 50? flexion and 55? B Rotation to improve ability to turn and look to her side without increased pain LTG Duration 08/13/20 One Impairment Pt does not have an appropriate home exercise program Short Term Goal (STG) Pt to be independent and compliant with an appropriate HEP STG Duration 07/12/20 Assessment Summary Assessment Pt presents with signs and symptoms consistent with facet joint arthropathy, hypertonia of the cervical musculature, and limited cervical ROM. Pt should benefit from skilled therapy focusing on STM, improved flexibility, manual and mechanical traction, and pain-control modalities. Strength fairly reasonable at the moment, no increased pain with resisted MMT. Pt may also benefit from auto body man training, as she admits to pain and difficulty lifting laundry. Physical Therapy Plan Frequency and Duration Frequency of Treatment 2x/Week Duration of Treatment 10 weeks Plan of Care Start Date 06/12/20 Plan of Care End Date 08/21/20 Therapeutic Interventions Therapeutic Interventions Home Exercise Program,Joint Mobilizations,Manual Therapy, Neuromuscular Re-education, Patient/Caregiver Education, Self-Care/Home Management,Soft Tissue Mobilization, Therapeutic Activities, Therapeutic Exercises Modalities Cold Pack/Ice Massage,Electric Stimulation,Hot Packs, Traction- Mechanical, Ultrasound Next Visit Focus/Plan Next Note Type Treatment Note Next Visit Plan Cervical STM, ROM/Flexibility, Manual traction
--- NOTE | 2020-06-12 15:54 | PT.OPPOC ---
Physical, Occupational & Speech Therapy At [facility] Current Diagnoses Pain in right shoulder (06/12/20) Stiffness of unspecified joint, not elsewhere classified (06/12/20) Spondylosis without myelopathy or radiculopathy, cervical region (06/12/20) Cervicalgia (06/12/20) Visit Care Team Role Provider Type Rustam Yates MD Attending Provider Physician Primary Care Provider Referring Provider Specialty: Internal Medicine Address: [address] [place] [address], [address], [facility] Email: [email or web address] Plan Of Care PT-OP-T Assessment and Plan Start: 06/12/20 15:17 Freq: Status: Active Protocol: Document 06/12/20 14:30 DCW (Rec: 06/12/20 15:53 DCW [id number]) Physical Therapy Assessment Rehab Potential Rehabilitation Potential Good Evaluation Complexity Number of Personal Factors/Comorbidities 1-2 Number of Body Systems Impaired 3 Clinical Presentation at Evaluation Stable Impairments Impairments Functional Mobility,Pain,ROM, Soft Tissue Mobility,Strength, Tone Goals Three Impairment Severe (R Upper Trap, Scalenes , Levator) and Mod tone in neck musculature Shaft Repairer Goal (LTG) Pt to present with mild tone and tenderness to palpation 1/ 4: complaint of pain in bilateral UT, Scalenes, Rhomboids, and levators LTG Duration 08/13/20 Two Impairment Limited cervical ROM (35? flexion, 36? L Rotation) Shaft Repairer Goal (LTG) Pt to exhibit improved cervical AROM to 50? flexion and 55? B Rotation to improve ability to turn and look to her side without increased pain LTG Duration 08/13/20 One Impairment Pt does not have an appropriate home exercise program Short Term Goal (STG) Pt to be independent and compliant with an appropriate HEP STG Duration 07/12/20 Assessment Summary Assessment Pt presents with signs and symptoms consistent with facet joint arthropathy, hypertonia of the cervical musculature, and limited cervical ROM. Pt should benefit from skilled therapy focusing on STM, improved flexibility, manual and mechanical traction, and pain-control modalities. Strength fairly reasonable at the moment, no increased pain with resisted MMT. 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 Physical Therapy Plan Frequency and Duration Frequency of Treatment 2x/Week Duration of Treatment 10 weeks Plan of Care Start Date 06/12/20 Plan of Care End Date 08/21/20 Therapeutic Interventions Therapeutic Interventions Home Exercise Program,Joint Mobilizations,Manual Therapy, Neuromuscular Re-education, Patient/Caregiver Education, Self-Care/Home Management,Soft Tissue Mobilization, Therapeutic Activities, Therapeutic Exercises Modalities Cold Pack/Ice Massage,Electric Stimulation,Hot Packs, Traction- Mechanical, Ultrasound Next Visit Focus/Plan Next Note Type Treatment Note Next Visit Plan Cervical STM, ROM/Flexibility, Manual traction Plan of Care Dates Plan of Care Start Date 06/12/20 Plan of Care End Date 08/21/20 Electronically Signed by: Grey Bhatia, PT 06/12/20 3217 Please Sign and Return: I have reviewed this Plan of Care and certify that the skilled therapy services above are required to meet the patient?s needs. Physician Signature Date Printed Name and Credentials Clinical Instructor Signature Printed Name and Credentials
--- NOTE | 2020-06-15 14:31 | PT.OTN ---
Current Diagnoses Pain in right shoulder (06/15/20) Stiffness of unspecified joint, not elsewhere classified (06/15/20) Spondylosis without myelopathy or radiculopathy, cervical region (06/15/20) Cervicalgia (06/15/20) Physical Therapy Treatment Note PT-OP-A Visit Information Start: 06/12/20 15:17 Freq: Status: Active Protocol: Document 06/15/20 13:45 DCW (Rec: 06/15/20 14:31 DCW [id number]) Out-Patient Physical Therapy Visit Information Visit Information Visit Type Treatment Note Visit Start Time 13:45 Visit Stop Time 14:30 Total Visit Minutes 45 Visit Number 2 Number of ORDER PLANNER Visits 0 Evaluation Information Evaluation Date 06/12/20 PT-OP-B Current Condition Start: 06/12/20 15:17 Freq: Status: Active Protocol: Document 06/12/20 14:30 DCW (Rec: 06/12/20 15:53 DCW [id number]) Current Condition History of Current Condition Onset Date mid-March Current Complaints Neck and upper back stiffness History of Current Condition Pt is a 54 year old female presenting with a 2.5 month history of neck and back pain following a fall in mid-March. Pt reports that she tried to step up onto a sidewalk, but caught her toe, hopped a few times to try to regain her balance, and then fell and hit her back. Pt reports she messed up my upper back and neck, and she has noticed a grinding in her neck. Pt does note that her neck is getting better, but still gives her pain with lifting laundry and groceries. Pt also reports some right shoulder pain with some positions and occasionally when lifting. Prior Treatments and Tests Prior PT treatment of low back Cervical X-ray: IMPRESSION: Mild degenerative disc disease in lower cervical spine. No significant bony foraminal stenosis. No fracture or dislocation. Per: Dionisio Naik on 04/20/2020. Lumbar x-ray: IMPRESSION: Multilevel lumbar disc degeneration, grossly unchanged. Grade 1 anterolisthesis of L4 on L5 as before. Per Ruby Kimbrough on 05/11/2020. Fluoroscopically guided, contrast-controlled bilateral L4, L5 and S1 medial branch blocks with 0.5cc of 0.5% Marcaine on 06/01/[address] Coronel PT-OP-C Subjective Start: 06/12/20 15:17 Freq: Status: Active Protocol: Document 06/15/20 13:45 DCW (Rec: 06/15/20 14:31 DCW [id number]) OP-PT Subjective Patient Comments Patient Comments I could have used your hands last night, my back seemed really tight and I started to get a migraine. PT-OP-F Manual Assessment Start: 06/12/20 15:17 Freq: Status: Active Protocol: Document 06/12/20 14:30 DCW (Rec: 06/12/20 15:53 DCW [id number]) Manual Assessments Soft Tissue Assessment Soft Tissue Mobility Assessment Moderate Tone, tenderness to palpation 2/4: Pain with wincing; B suboccipitals, B Rhomboids, L Scalenes, L Upper Trap Severe tone, tenderness to palpation 3/4: Wincing and withdraw; R upper trap, R scalenes, R levator Joint Mobility Assessment Joint Mobility Assessment Hypomobility of cervical spine during joint mobilization PT-OP-K Range of Motion Start: 06/12/20 15:17 Freq: Status: Active Protocol: Document 06/12/20 14:30 DCW (Rec: 06/12/20 15:53 DCW [id number]) Cervical Spine Range of Motion Cervical Spine Active Degrees Testing Position Sitting Flexion 35 Extension 46 Rotation Left 36 Rotation Right 54 Lateral Flexion Left 30 Lateral Flexion Right 28 ROM Limitations Soft Tissue Tightness,Bony Restriction,Muscle Tone,Pain Shoulder Goniometric Range of Motion Shoulder Bilateral Active Shoulder ROM WFL Yes PT-OP-L Special Tests Start: 06/12/20 15:17 Freq: Status: Active Protocol: Document 06/12/20 14:30 DCW (Rec: 06/12/20 15:53 DCW [id number]) Special Tests Cervical Spine Special Tests Traction Test Results Improves pain Spurling's Test Test Results Positive bilateral Passive Neck Flexion Test Results Cervical Pain Slump Test Results Cervical pain Foraminal Compression Test Results Positive bilateral PT-OP-M Strength Start: 06/12/20 15:17 Freq: Status: Active Protocol: Document 06/12/20 14:30 DCW (Rec: 06/12/20 15:53 DCW [id number]) Cervical Spine Strength Cervical Spine Manual Muscle Testing Testing Position Supine Flexion (C1-2) 4 Good Extension 4+ Good+ Rotation Left 4 Good Rotation Right 4 Good Lateral Flexion Left (C3) 4+ Good+ Lateral Flexion Right (C3) 4+ Good+ PT-OP-Q Treatments Start: 06/12/20 15:17 Freq: Status: Active Protocol: Document 06/15/20 13:45 DCW (Rec: 06/15/20 14:31 DCW [id number]) Therapeutic Exercises Supine Exercises 2 Supine Exercise Name Scalene Stretch Side bilateral Comments manual 1 Supine Exercise Name UT Stretch Side bilateral Comments manual Sitting Exercises 1 Sitting Exercise Name Upper Trap, Scalene stretch Side bilateral Reps/Minutes 40 hold Comments HEP Manual Therapy Treatment Soft Tissue Mobilization 2 Body Location B Upper Trap Mobilization Type Strumming,Sustained Pressure Intensity/Depth Moderate Body Position Supine 1 Body Location Suboccipitals Mobilization Type Strumming,Sustained Pressure Intensity/Depth Moderate Body Position Supine PT-OP-T Assessment and Plan Start: 06/12/20 15:17 Freq: Status: Active Protocol: Document 06/15/20 13:45 DCW (Rec: 06/15/20 14:31 DCW [id number]) Physical Therapy Assessment Impairments Impairments Functional Mobility,Pain,ROM, Soft Tissue Mobility,Strength, Tone Goals Three Impairment Severe (R Upper Trap, Scalenes , Levator) and Mod tone in neck musculature Senior Living Goal (LTG) Pt to present with mild tone and tenderness to palpation 1/ 4: complaint of pain in bilateral UT, Scalenes, Rhomboids, and levators LTG Duration 08/13/20 Two Impairment Limited cervical ROM (35? flexion, 36? L Rotation) Senior Living Goal (LTG) Pt to exhibit improved cervical AROM to 50? flexion and 55? B Rotation to improve ability to turn and look to her side without increased pain LTG Duration 08/13/20 One Impairment Pt does not have an appropriate home exercise program Short Term Goal (STG) Pt to be independent and compliant with an appropriate HEP STG Duration 07/12/20 Assessment Summary Assessment Pt shows notable improvement in ROM following STM and stretching, pt feels like she has already seen improvement in pain levels and mobility. Physical Therapy Plan Frequency and Duration Frequency of Treatment 2x/Week Duration of Treatment 10 weeks Plan of Care Start Date 06/12/20 Plan of Care End Date 08/21/20 Therapeutic Interventions Therapeutic Interventions Home Exercise Program,Joint Mobilizations,Manual Therapy, Neuromuscular Re-education, Patient/Caregiver Education, Self-Care/Home Management,Soft Tissue Mobilization, Therapeutic Activities, Therapeutic Exercises Modalities Cold Pack/Ice Massage,Electric Stimulation,Hot Packs, Traction- Mechanical, Ultrasound Next Visit Focus/Plan Next Note Type Treatment Note Next Visit Plan Cervical STM, ROM/Flexibility, Manual traction
--- NOTE | 2020-06-21 17:31 | PT.OTN ---
Current Diagnoses Pain in right shoulder (06/21/20) Stiffness of unspecified joint, not elsewhere classified (06/21/20) Spondylosis without myelopathy or radiculopathy, cervical region (06/21/20) Cervicalgia (06/21/20) Physical Therapy Treatment Note PT-OP-A Visit Information Start: 06/12/20 15:17 Freq: Status: Active Protocol: Document 06/21/20 17:20 AW (Rec: 06/21/20 17:31 AW [id number]) Out-Patient Physical Therapy Visit Information Visit Information Visit Type Treatment Note Visit Start Time 13:30 Visit Stop Time 14:15 Total Visit Minutes 45 Visit Number 3 Number of DIRECTIONAL DRILL OPERATOR Visits 0 Evaluation Information Evaluation Date 06/12/20 PT-OP-B Current Condition Start: 06/12/20 15:17 Freq: Status: Active Protocol: Document 06/12/20 14:30 DCW (Rec: 06/12/20 15:53 DCW [id number]) Current Condition History of Current Condition Onset Date mid-March Current Complaints Neck and upper back stiffness History of Current Condition Pt is a 54 year old female presenting with a 2.5 month history of neck and back pain following a fall in mid-March. Pt reports that she tried to step up onto a sidewalk, but caught her toe, hopped a few times to try to regain her balance, and then fell and hit her back. Pt reports she messed up my upper back and neck, and she has noticed a grinding in her neck. Pt does note that her neck is getting better, but still gives her pain with lifting laundry and groceries. Pt also reports some right shoulder pain with some positions and occasionally when lifting. Prior Treatments and Tests Prior PT treatment of low back Cervical X-ray: IMPRESSION: Mild degenerative disc disease in lower cervical spine. No significant bony foraminal stenosis. No fracture or dislocation. Per: Dionisio Naik on 04/20/2020. Lumbar x-ray: IMPRESSION: Multilevel lumbar disc degeneration, grossly unchanged. Grade 1 anterolisthesis of L4 on L5 as before. Per Ruby Kimbrough on 05/11/2020. Fluoroscopically guided, contrast-controlled bilateral L4, L5 and S1 medial branch blocks with 0.5cc of 0.5% Marcaine on 06/01/[address] Coronel PT-OP-C Subjective Start: 06/12/20 15:17 Freq: Status: Active Protocol: Document 06/21/20 17:20 AW (Rec: 06/21/20 17:31 AW [id number]) OP-PT Subjective Patient Comments Patient Comments [place] reports good compliance with home stretches. I know it'll only get worse if I don' t do them. Patient Reported Progress Improving PT-OP-F Manual Assessment Start: 06/12/20 15:17 Freq: Status: Active Protocol: Document 06/12/20 14:30 DCW (Rec: 06/12/20 15:53 DCW [id number]) Manual Assessments Soft Tissue Assessment Soft Tissue Mobility Assessment Moderate Tone, tenderness to palpation 2/4: Pain with wincing; B suboccipitals, B Rhomboids, L Scalenes, L Upper Trap Severe tone, tenderness to palpation 3/4: Wincing and withdraw; R upper trap, R scalenes, R levator Joint Mobility Assessment Joint Mobility Assessment Hypomobility of cervical spine during joint mobilization PT-OP-K Range of Motion Start: 06/12/20 15:17 Freq: Status: Active Protocol: Document 06/12/20 14:30 DCW (Rec: 06/12/20 15:53 DCW [id number]) Cervical Spine Range of Motion Cervical Spine Active Degrees Testing Position Sitting Flexion 35 Extension 46 Rotation Left 36 Rotation Right 54 Lateral Flexion Left 30 Lateral Flexion Right 28 ROM Limitations Soft Tissue Tightness,Bony Restriction,Muscle Tone,Pain Shoulder Goniometric Range of Motion Shoulder Bilateral Active Shoulder ROM WFL Yes PT-OP-L Special Tests Start: 06/12/20 15:17 Freq: Status: Active Protocol: Document 06/12/20 14:30 DCW (Rec: 06/12/20 15:53 DCW [id number]) Special Tests Cervical Spine Special Tests Traction Test Results Improves pain Spurling's Test Test Results Positive bilateral Passive Neck Flexion Test Results Cervical Pain Slump Test Results Cervical pain Foraminal Compression Test Results Positive bilateral PT-OP-M Strength Start: 06/12/20 15:17 Freq: Status: Active Protocol: Document 06/12/20 14:30 DCW (Rec: 06/12/20 15:53 DCW [id number]) Cervical Spine Strength Cervical Spine Manual Muscle Testing Testing Position Supine Flexion (C1-2) 4 Good Extension 4+ Good+ Rotation Left 4 Good Rotation Right 4 Good Lateral Flexion Left (C3) 4+ Good+ Lateral Flexion Right (C3) 4+ Good+ PT-OP-Q Treatments Start: 06/12/20 15:17 Freq: Status: Active Protocol: Document 06/21/20 17:20 AW (Rec: 06/21/20 17:31 AW [email or web address]) Therapeutic Exercises Supine Exercises deep neck flexor endurance Supine Exercise Name deep neck flexor endurance Reps/Minutes 8 sec hold x 5 Comments vc for chin retraction, liftoff from towel roll Sitting Exercises isometric neck all planes Sitting Exercise Name isometric neck - flexion, extension, side bending Side bilateral Resistance manual - self Reps/Minutes 5 sec hold x 5 each direction resisted shoulder ER Sitting Exercise Name resisted shoulder ER Resistance level 1 Equipment Used TB Reps/Minutes 15 reps Comments cues for elbows tucked to sides, scap retraction scapular retraction Sitting Exercise Name scapular retraction Side bilateral Reps/Minutes 5 sec hold x 10 Comments cues to isolate scapular movement cervical retraction Sitting Exercise Name cervical retraction Reps/Minutes 5 sec hold x 10 Comments cues for retraction vs chin to chest 1 Sitting Exercise Name Upper Trap, Scalene stretch Side bilateral Reps/Minutes 40 hold Comments HEP Standing Exercises wall slides Standing Exercise Name serratus ant activation/wall slides Side bilateral Reps/Minutes x 12 reps Comments forearms on wall with cues for scap retraction/depression Manual Therapy Treatment Soft Tissue Mobilization 2 Body Location B Upper Trap Mobilization Type Strumming,Sustained Pressure Intensity/Depth Moderate Body Position Supine 1 Body Location Suboccipitals & cervical paraspinals Mobilization Type Strumming,Sustained Pressure Intensity/Depth Moderate Body Position Supine PT-OP-T Assessment and Plan Start: 06/12/20 15:17 Freq: Status: Active Protocol: Document 06/21/20 17:20 AW (Rec: 06/21/20 17:31 AW [id number]) Physical Therapy Assessment Impairments Impairments Functional Mobility,Pain,ROM, Soft Tissue Mobility,Strength, Tone Goals Three Impairment Severe (R Upper Trap, Scalenes , Levator) and Mod tone in neck musculature Line Puller Goal (LTG) Pt to present with mild tone and tenderness to palpation 10/16: complaint of pain in bilateral UT, Scalenes, Rhomboids, and levators LTG Duration 08/13/20 Two Impairment Limited cervical ROM (35? flexion, 36? L Rotation) Line Puller Goal (LTG) Pt to exhibit improved cervical AROM to 50? flexion and 55? B Rotation to improve ability to turn and look to her side without increased pain LTG Duration 08/13/20 One Impairment Pt does not have an appropriate home exercise program Short Term Goal (STG) Pt to be independent and compliant with an appropriate HEP STG Duration 07/12/20 Assessment Summary Assessment Pt has improved rotation ROM bilaterally today after STM. Pt is motivated and willing to work hard in therapy. Pain levels have remained at improved level since initiating treatment. Physical Therapy Plan Frequency and Duration Frequency of Treatment 2x/Week Duration of Treatment 10 weeks Plan of Care Start Date 06/12/20 Plan of Care End Date 08/21/20 Therapeutic Interventions Therapeutic Interventions Home Exercise Program,Joint Mobilizations,Manual Therapy, Neuromuscular Re-education, Patient/Caregiver Education, Self-Care/Home Management,Soft Tissue Mobilization, Therapeutic Activities, Therapeutic Exercises Modalities Cold Pack/Ice Massage,Electric Stimulation,Hot Packs, Traction- Mechanical, Ultrasound Next Visit Focus/Plan Next Note Type Treatment Note Next Visit Plan Cervical STM, ROM/Flexibility, Manual traction
--- NOTE | 2020-07-03 08:15 | PT.OTN ---
Current Diagnoses Pain in right shoulder (07/03/20) Stiffness of unspecified joint, not elsewhere classified (07/03/20) Spondylosis without myelopathy or radiculopathy, cervical region (07/03/20) Cervicalgia (07/03/20) Physical Therapy Treatment Note PT-OP-A Visit Information Start: 06/12/20 15:17 Freq: Status: Active Protocol: Document 07/03/20 07:33 MB (Rec: 07/03/20 08:05 MB [id number]) Out-Patient Physical Therapy Visit Information Visit Information Visit Type Treatment Note Visit Start Time 07:33 Visit Stop Time 08:15 Total Visit Minutes 42 Visit Number 4 PT-OP-B Current Condition Start: 06/12/20 15:17 Freq: Status: Active Protocol: Document 06/12/20 14:30 DCW (Rec: 06/12/20 15:53 DCW [id number]) Current Condition History of Current Condition Onset Date mid-March Current Complaints Neck and upper back stiffness History of Current Condition Pt is a 54 year old female presenting with a 2.5 month history of neck and back pain following a fall in mid-March. Pt reports that she tried to step up onto a sidewalk, but caught her toe, hopped a few times to try to regain her balance, and then fell and hit her back. Pt reports she messed up my upper back and neck, and she has noticed a grinding in her neck. Pt does note that her neck is getting better, but still gives her pain with lifting laundry and groceries. Pt also reports some right shoulder pain with some positions and occasionally when lifting. Prior Treatments and Tests Prior PT treatment of low back Cervical X-ray: IMPRESSION: Mild degenerative disc disease in lower cervical spine. No significant bony foraminal stenosis. No fracture or dislocation. Per: Dionisio Naik on 04/20/2020. Lumbar x-ray: IMPRESSION: Multilevel lumbar disc degeneration, grossly unchanged. Grade 1 anterolisthesis of L4 on L5 as before. Per Ruby Kimbrough on 05/11/2020. Fluoroscopically guided, contrast-controlled bilateral L4, L5 and S1 medial branch blocks with 0.5cc of 0.5% Marcaine on 06/01/[address] Coronel PT-OP-C Subjective Start: 06/12/20 15:17 Freq: Status: Active Protocol: Document 07/03/20 07:33 MB (Rec: 07/03/20 08:05 MB [id number]) OP-PT Subjective Patient Comments Patient Comments I woke up with a headache. PT-OP-F Manual Assessment Start: 06/12/20 15:17 Freq: Status: Active Protocol: Document 06/12/20 14:30 DCW (Rec: 06/12/20 15:53 DCW [id number]) Manual Assessments Soft Tissue Assessment Soft Tissue Mobility Assessment Moderate Tone, tenderness to palpation 2/4: Pain with wincing; B suboccipitals, B Rhomboids, L Scalenes, L Upper Trap Severe tone, tenderness to palpation 3/4: Wincing and withdraw; R upper trap, R scalenes, R levator Joint Mobility Assessment Joint Mobility Assessment Hypomobility of cervical spine during joint mobilization PT-OP-K Range of Motion Start: 06/12/20 15:17 Freq: Status: Active Protocol: Document 06/12/20 14:30 DCW (Rec: 06/12/20 15:53 DCW [id number]) Cervical Spine Range of Motion Cervical Spine Active Degrees Testing Position Sitting Flexion 35 Extension 46 Rotation Left 36 Rotation Right 54 Lateral Flexion Left 30 Lateral Flexion Right 28 ROM Limitations Soft Tissue Tightness,Bony Restriction,Muscle Tone,Pain Shoulder Goniometric Range of Motion Shoulder Bilateral Active Shoulder ROM WFL Yes PT-OP-L Special Tests Start: 06/12/20 15:17 Freq: Status: Active Protocol: Document 06/12/20 14:30 DCW (Rec: 06/12/20 15:53 DCW [id number]) Special Tests Cervical Spine Special Tests Traction Test Results Improves pain Spurling's Test Test Results Positive bilateral Passive Neck Flexion Test Results Cervical Pain Slump Test Results Cervical pain Foraminal Compression Test Results Positive bilateral PT-OP-M Strength Start: 06/12/20 15:17 Freq: Status: Active Protocol: Document 06/12/20 14:30 DCW (Rec: 06/12/20 15:53 DCW [id number]) Cervical Spine Strength Cervical Spine Manual Muscle Testing Testing Position Supine Flexion (C1-2) 4 Good Extension 4+ Good+ Rotation Left 4 Good Rotation Right 4 Good Lateral Flexion Left (C3) 4+ Good+ Lateral Flexion Right (C3) 4+ Good+ PT-OP-Q Treatments Start: 06/12/20 15:17 Freq: Status: Active Protocol: Document 07/03/20 07:33 MB (Rec: 07/03/20 08:05 MB [id number]) Therapeutic Exercises Sitting Exercises MWM upper traps Side bilateral Equipment Used Racquet ball Comments Sitting, MWM with trigger point under ball and active cervical rotation Standing Exercises 7 Standing Exercise Name Racquet ball massage intrascapular muscles, upper cervical muscles Equipment Used Racquet ball Comments Also cervical rotation holding trigger point 6 Standing Exercise Name MWM infraspinatus performing active ER and IR Equipment Used Racquet ball Manual Therapy Treatment Other Other Manual Treatments Pt prone: PA thoracic mobs grade III-IV, scapular mobs B, rib recoil Pt supine: B cervical paraspinal and upper traps, middle scalene and levator STM PT-OP-T Assessment and Plan Start: 06/12/20 15:17 Freq: Status: Active Protocol: Document 07/03/20 07:33 MB (Rec: 07/03/20 08:05 MB [id number]) Physical Therapy Assessment Impairments Impairments Functional Mobility,Pain,ROM, Soft Tissue Mobility,Strength, Tone Goals Three Impairment Severe (R Upper Trap, Scalenes , Levator) and Mod tone in neck musculature Skilled Nursing Goal (LTG) Pt to present with mild tone and tenderness to palpation 1/ 4: complaint of pain in bilateral UT, Scalenes, Rhomboids, and levators LTG Duration 08/13/20 Two Impairment Limited cervical ROM (35? flexion, 36? L Rotation) Managing Consultant Clinical Professor Goal (LTG) Pt to exhibit improved cervical AROM to 50? flexion and 55? B Rotation to improve ability to turn and look to her side without increased pain LTG Duration 08/13/20 One Impairment Pt does not have an appropriate home exercise program Short Term Goal (STG) Pt to be independent and compliant with an appropriate HEP STG Duration 07/12/20 Assessment Summary Assessment Progressed flexibility and cervical mobility with racquet ball MWM. Physical Therapy Plan Frequency and Duration Frequency of Treatment 2x/Week Duration of Treatment 10 weeks Plan of Care Start Date 06/12/20 Plan of Care End Date 08/21/20 Therapeutic Interventions Therapeutic Interventions Home Exercise Program,Joint Mobilizations,Manual Therapy, Neuromuscular Re-education, Patient/Caregiver Education, Self-Care/Home Management,Soft Tissue Mobilization, Therapeutic Activities, Therapeutic Exercises Modalities Cold Pack/Ice Massage,Electric Stimulation,Hot Packs, Traction- Mechanical, Ultrasound Next Visit Focus/Plan Next Note Type Treatment Note Next Visit Plan Thoracic mobility such as open book, pect stretch over pool noodle and progressive core strengthening. Per primary therapist's POC: Cervical STM, ROM/Flexibility, Manual traction
--- NOTE | 2020-07-05 08:14 | PT.OTN ---
Current Diagnoses Pain in right shoulder (07/05/20) Stiffness of unspecified joint, not elsewhere classified (07/05/20) Spondylosis without myelopathy or radiculopathy, cervical region (07/05/20) Cervicalgia (07/05/20) Physical Therapy Treatment Note PT-OP-A Visit Information Start: 06/12/20 15:17 Freq: Status: Active Protocol: Document 07/05/20 07:31 MB (Rec: 07/05/20 08:06 MB [id number]) Out-Patient Physical Therapy Visit Information Visit Information Visit Type Treatment Note Visit Start Time 07:31 Visit Stop Time 08:12 Total Visit Minutes 41 Visit Number 5 PT-OP-B Current Condition Start: 06/12/20 15:17 Freq: Status: Active Protocol: Document 06/12/20 14:30 DCW (Rec: 06/12/20 15:53 DCW [id number]) Current Condition History of Current Condition Onset Date mid-March Current Complaints Neck and upper back stiffness History of Current Condition Pt is a 54 year old female presenting with a 2.5 month history of neck and back pain following a fall in mid-March. Pt reports that she tried to step up onto a sidewalk, but caught her toe, hopped a few times to try to regain her balance, and then fell and hit her back. Pt reports she messed up my upper back and neck, and she has noticed a grinding in her neck. Pt does note that her neck is getting better, but still gives her pain with lifting laundry and groceries. Pt also reports some right shoulder pain with some positions and occasionally when lifting. Prior Treatments and Tests Prior PT treatment of low back Cervical X-ray: IMPRESSION: Mild degenerative disc disease in lower cervical spine. No significant bony foraminal stenosis. No fracture or dislocation. Per: Dionisio Naik on 04/20/2020. Lumbar x-ray: IMPRESSION: Multilevel lumbar disc degeneration, grossly unchanged. Grade 1 anterolisthesis of L4 on L5 as before. Per Ruby Kimbrough on 05/11/2020. Fluoroscopically guided, contrast-controlled bilateral L4, L5 and S1 medial branch blocks with 0.5cc of 0.5% Marcaine on 06/01/[address] Coronel PT-OP-C Subjective Start: 06/12/20 15:17 Freq: Status: Active Protocol: Document 07/05/20 07:31 MB (Rec: 07/05/20 08:06 MB [id number]) OP-PT Subjective Patient Comments Patient Comments I got some stuff to show you. PT-OP-F Manual Assessment Start: 06/12/20 15:17 Freq: Status: Active Protocol: Document 06/12/20 14:30 DCW (Rec: 06/12/20 15:53 DCW [id number]) Manual Assessments Soft Tissue Assessment Soft Tissue Mobility Assessment Moderate Tone, tenderness to palpation 2/4: Pain with wincing; B suboccipitals, B Rhomboids, L Scalenes, L Upper Trap Severe tone, tenderness to palpation 3/4: Wincing and withdraw; R upper trap, R scalenes, R levator Joint Mobility Assessment Joint Mobility Assessment Hypomobility of cervical spine during joint mobilization PT-OP-K Range of Motion Start: 06/12/20 15:17 Freq: Status: Active Protocol: Document 06/12/20 14:30 DCW (Rec: 06/12/20 15:53 DCW [id number]) Cervical Spine Range of Motion Cervical Spine Active Degrees Testing Position Sitting Flexion 35 Extension 46 Rotation Left 36 Rotation Right 54 Lateral Flexion Left 30 Lateral Flexion Right 28 ROM Limitations Soft Tissue Tightness,Bony Restriction,Muscle Tone,Pain Shoulder Goniometric Range of Motion Shoulder Bilateral Active Shoulder ROM WFL Yes PT-OP-L Special Tests Start: 06/12/20 15:17 Freq: Status: Active Protocol: Document 06/12/20 14:30 DCW (Rec: 06/12/20 15:53 DCW [id number]) Special Tests Cervical Spine Special Tests Traction Test Results Improves pain Spurling's Test Test Results Positive bilateral Passive Neck Flexion Test Results Cervical Pain Slump Test Results Cervical pain Foraminal Compression Test Results Positive bilateral PT-OP-M Strength Start: 06/12/20 15:17 Freq: Status: Active Protocol: Document 06/12/20 14:30 DCW (Rec: 06/12/20 15:53 DCW [id number]) Cervical Spine Strength Cervical Spine Manual Muscle Testing Testing Position Supine Flexion (C1-2) 4 Good Extension 4+ Good+ Rotation Left 4 Good Rotation Right 4 Good Lateral Flexion Left (C3) 4+ Good+ Lateral Flexion Right (C3) 4+ Good+ PT-OP-Q Treatments Start: 06/12/20 15:17 Freq: Status: Active Protocol: Document 07/05/20 07:31 MB (Rec: 07/05/20 08:06 MB [id number]) Therapeutic Exercises Sidelying Exercises Open book Side bilateral Reps/Minutes 5 reps Comments Rotate head with movement Standing Exercises 5 Standing Exercise Name Pect stretch doorway Reps/Minutes 2 reps Comments Feet flush with doorway, scapular retraction way down 4 Standing Exercise Name Level 2 band shoulder ER and scapular retraction Side bilateral Reps/Minutes 5 reps Comments Cues for core engagement Manual Therapy Treatment Other Other Manual Treatments Pt prone: PA thoracic mobs, grade III-IV, scapular mobs B, rib recoil PT-OP-T Assessment and Plan Start: 06/12/20 15:17 Freq: Status: Active Protocol: Document 07/05/20 07:31 MB (Rec: 07/05/20 08:06 MB [id number]) Physical Therapy Assessment Impairments Impairments Functional Mobility,Pain,ROM, Soft Tissue Mobility,Strength, Tone Goals Three Impairment Severe (R Upper Trap, Scalenes , Levator) and Mod tone in neck musculature Residential Goal (LTG) Pt to present with mild tone and tenderness to palpation / : complaint of pain in bilateral UT, Scalenes, Rhomboids, and levators LTG Duration 08/13/20 Two Impairment Limited cervical ROM (35? flexion, 36? L Rotation) Residential Goal (LTG) Pt to exhibit improved cervical AROM to 50? flexion and 55? B Rotation to improve ability to turn and look to her side without increased pain LTG Duration 08/13/20 One Impairment Pt does not have an appropriate home exercise program Short Term Goal (STG) Pt to be independent and compliant with an appropriate HEP STG Duration 07/12/20 Assessment Summary Assessment Progressed strengthening today and thoracic mobility. See suggestions under next treatment for future HEP exercises to consider. She con 't with upper traps and thoracic tightness and may benefit from further manual work. Physical Therapy Plan Frequency and Duration Frequency of Treatment 2x/Week Duration of Treatment 10 weeks Plan of Care Start Date 06/12/20 Plan of Care End Date 08/21/20 Therapeutic Interventions Therapeutic Interventions Home Exercise Program,Joint Mobilizations,Manual Therapy, Neuromuscular Re-education, Patient/Caregiver Education, Self-Care/Home Management,Soft Tissue Mobilization, Therapeutic Activities, Therapeutic Exercises Modalities Cold Pack/Ice Massage,Electric Stimulation,Hot Packs, Traction- Mechanical, Ultrasound Next Visit Focus/Plan Next Note Type Treatment Note Next Visit Plan Consider manual traction and other manual work, standing cat/cow over counter, upper cervical isometric, wall push- ups, modified thread the needle standing at wall
--- NOTE | 2020-07-10 16:16 | PT.OTN ---
Current Diagnoses Pain in right shoulder (07/10/20) Stiffness of unspecified joint, not elsewhere classified (07/10/20) Spondylosis without myelopathy or radiculopathy, cervical region (07/10/20) Cervicalgia (07/10/20) Physical Therapy Treatment Note PT-OP-A Visit Information Start: 06/12/20 15:17 Freq: Status: Active Protocol: Document 07/10/20 15:17 SAK (Rec: 07/10/20 16:12 SAK [id number]) Out-Patient Physical Therapy Visit Information Visit Information Visit Type Treatment Note Visit Start Time 15:31 Visit Stop Time 16:15 Total Visit Minutes 46 Visit Number 6 PT-OP-B Current Condition Start: 06/12/20 15:17 Freq: Status: Active Protocol: Document 06/12/20 14:30 DCW (Rec: 06/12/20 15:53 DCW [id number]) Current Condition History of Current Condition Onset Date mid-March Current Complaints Neck and upper back stiffness History of Current Condition Pt is a 54 year old female presenting with a 2.5 month history of neck and back pain following a fall in mid-March. Pt reports that she tried to step up onto a sidewalk, but caught her toe, hopped a few times to try to regain her balance, and then fell and hit her back. Pt reports she messed up my upper back and neck, and she has noticed a grinding in her neck. Pt does note that her neck is getting better, but still gives her pain with lifting laundry and groceries. Pt also reports some right shoulder pain with some positions and occasionally when lifting. Prior Treatments and Tests Prior PT treatment of low back Cervical X-ray: IMPRESSION: Mild degenerative disc disease in lower cervical spine. No significant bony foraminal stenosis. No fracture or dislocation. Per: Dionisio Naik on 04/20/2020. Lumbar x-ray: IMPRESSION: Multilevel lumbar disc degeneration, grossly unchanged. Grade 1 anterolisthesis of L4 on L5 as before. Per Ruby Kimbrough on 05/11/2020. Fluoroscopically guided, contrast-controlled bilateral L4, L5 and S1 medial branch blocks with 0.5cc of 0.5% Marcaine on 06/01/[address] Coronel PT-OP-C Subjective Start: 06/12/20 15:17 Freq: Status: Active Protocol: Document 07/10/20 15:17 SAK (Rec: 07/10/20 16:12 SAK [id number]) OP-PT Subjective Patient Comments Patient Comments Neck popped pretty hard over weekend, some pain. PT decreases symptoms , but then pain and stiffness return. PT-OP-F Manual Assessment Start: 06/12/20 15:17 Freq: Status: Active Protocol: Document 06/12/20 14:30 DCW (Rec: 06/12/20 15:53 DCW [id number]) Manual Assessments Soft Tissue Assessment Soft Tissue Mobility Assessment Moderate Tone, tenderness to palpation 2/4: Pain with wincing; B suboccipitals, B Rhomboids, L Scalenes, L Upper Trap Severe tone, tenderness to palpation 3/4: Wincing and withdraw; R upper trap, R scalenes, R levator Joint Mobility Assessment Joint Mobility Assessment Hypomobility of cervical spine during joint mobilization PT-OP-K Range of Motion Start: 06/12/20 15:17 Freq: Status: Active Protocol: Document 06/12/20 14:30 DCW (Rec: 06/12/20 15:53 DCW [id number]) Cervical Spine Range of Motion Cervical Spine Active Degrees Testing Position Sitting Flexion 35 Extension 46 Rotation Left 36 Rotation Right 54 Lateral Flexion Left 30 Lateral Flexion Right 28 ROM Limitations Soft Tissue Tightness,Bony Restriction,Muscle Tone,Pain Shoulder Goniometric Range of Motion Shoulder Bilateral Active Shoulder ROM WFL Yes PT-OP-L Special Tests Start: 06/12/20 15:17 Freq: Status: Active Protocol: Document 06/12/20 14:30 DCW (Rec: 06/12/20 15:53 DCW [id number]) Special Tests Cervical Spine Special Tests Traction Test Results Improves pain Spurling's Test Test Results Positive bilateral Passive Neck Flexion Test Results Cervical Pain Slump Test Results Cervical pain Foraminal Compression Test Results Positive bilateral PT-OP-M Strength Start: 06/12/20 15:17 Freq: Status: Active Protocol: Document 06/12/20 14:30 DCW (Rec: 06/12/20 15:53 DCW [id number]) Cervical Spine Strength Cervical Spine Manual Muscle Testing Testing Position Supine Flexion (C1-2) 4 Good Extension 4+ Good+ Rotation Left 4 Good Rotation Right 4 Good Lateral Flexion Left (C3) 4+ Good+ Lateral Flexion Right (C3) 4+ Good+ PT-OP-Q Treatments Start: 06/12/20 15:17 Freq: Status: Active Protocol: Document 07/10/20 15:17 SAK (Rec: 07/10/20 16:12 [facility] [id number]) Therapeutic Exercises Sidelying Exercises Open book Side bilateral Reps/Minutes 5 reps Comments Rotate head with movement, verbal and manual cues for segmental Manual Therapy Treatment Manual Traction c/s Details gr III Body Position Hooklying Other Other Manual Treatments Pt prone: PA thoracic mobs, grade III-IV, scapular mobs B, rib recoil Pt. supine: jonas c/s, UT, LS. 1st rib inf gl gr III PT-OP-R Modalities Start: 06/12/20 15:17 Freq: Status: Active Protocol: Document 07/10/20 15:17 [facility] (Rec: 07/10/20 16:13 [facility] [id number]) Hot Pack/Cold Pack Treatment Hot Pack Location c/s, right shoulder Patient Position Hooklying Patient Tolerance Good PT-OP-T Assessment and Plan Start: 06/12/20 15:17 Freq: Status: Active Protocol: Document 07/10/20 15:17 [facility] (Rec: 07/10/20 16:12 [facility] [id number]) Physical Therapy Assessment Impairments Impairments Functional Mobility,Pain,ROM, Soft Tissue Mobility,Strength, Tone Goals Three Impairment Severe (R Upper Trap, Scalenes , Levator) and Mod tone in neck musculature [employer] Internship Goal (LTG) Pt to present with mild tone and tenderness to palpation / : complaint of pain in bilateral UT, Scalenes, Rhomboids, and levators LTG Duration 08/13/20 Two Impairment Limited cervical ROM (35? flexion, 36? L Rotation) Nursing Home Goal (LTG) Pt to exhibit improved cervical AROM to 50? flexion and 55? B Rotation to improve ability to turn and look to her side without increased pain LTG Duration 08/13/20 One Impairment Pt does not have an appropriate home exercise program Short Term Goal (STG) Pt to be independent and compliant with an appropriate HEP STG Duration 07/12/20 Assessment Summary Assessment Patient arrived late so treatment limited, focused primarily on manual techniques , open book ex with manual facilitation for segmental movement Physical Therapy Plan Frequency and Duration Frequency of Treatment 2x/Week Duration of Treatment 10 weeks Plan of Care Start Date 06/12/20 Plan of Care End Date 08/21/20 Therapeutic Interventions Therapeutic Interventions Home Exercise Program,Joint Mobilizations,Manual Therapy, Neuromuscular Re-education, Patient/Caregiver Education, Self-Care/Home Management,Soft Tissue Mobilization, Therapeutic Activities, Therapeutic Exercises Modalities Cold Pack/Ice Massage,Electric Stimulation,Hot Packs, Traction- Mechanical, Ultrasound Next Visit Focus/Plan Next Note Type Treatment Note Next Visit Plan Continue ther ex, manual treatments to decrease pain and soft tissue tightness, improve cervical ROM.
--- NOTE | 2020-07-12 17:03 | PT.OTN ---
Current Diagnoses Pain in right shoulder (07/12/20) Stiffness of unspecified joint, not elsewhere classified (07/12/20) Spondylosis without myelopathy or radiculopathy, cervical region (07/12/20) Cervicalgia (07/12/20) Physical Therapy Treatment Note PT-OP-A Visit Information Start: 06/12/20 15:17 Freq: Status: Active Protocol: Document 07/12/20 16:50 AW (Rec: 07/12/20 17:03 AW [id number]) Out-Patient Physical Therapy Visit Information Visit Information Visit Type Treatment Note Visit Start Time 13:25 Visit Stop Time 14:12 Total Visit Minutes 47 Visit Number 7 Evaluation Information Evaluation Date 06/12/20 PT-OP-B Current Condition Start: 06/12/20 15:17 Freq: Status: Active Protocol: Document 06/12/20 14:30 DCW (Rec: 06/12/20 15:53 DCW [id number]) Current Condition History of Current Condition Onset Date mid-March Current Complaints Neck and upper back stiffness History of Current Condition Pt is a 54 year old female presenting with a 2.5 month history of neck and back pain following a fall in mid-March. Pt reports that she tried to step up onto a sidewalk, but caught her toe, hopped a few times to try to regain her balance, and then fell and hit her back. Pt reports she messed up my upper back and neck, and she has noticed a grinding in her neck. Pt does note that her neck is getting better, but still gives her pain with lifting laundry and groceries. Pt also reports some right shoulder pain with some positions and occasionally when lifting. Prior Treatments and Tests Prior PT treatment of low back Cervical X-ray: IMPRESSION: Mild degenerative disc disease in lower cervical spine. No significant bony foraminal stenosis. No fracture or dislocation. Per: Dionisio Naik on 04/20/2020. Lumbar x-ray: IMPRESSION: Multilevel lumbar disc degeneration, grossly unchanged. Grade 1 anterolisthesis of L4 on L5 as before. Per Ruby Kimbrough on 05/11/2020. Fluoroscopically guided, contrast-controlled bilateral L4, L5 and S1 medial branch blocks with 0.5cc of 0.5% Marcaine on 06/01/[address] Coronel PT-OP-C Subjective Start: 06/12/20 15:17 Freq: Status: Active Protocol: Document 07/12/20 16:50 AW (Rec: 07/12/20 17:03 AW [id number]) OP-PT Subjective Patient Comments Patient Comments Pt states relief lasted longer after last treatment and she believes she is improving. Patient Reported Progress Improving PT-OP-F Manual Assessment Start: 06/12/20 15:17 Freq: Status: Active Protocol: Document 06/12/20 14:30 DCW (Rec: 06/12/20 15:53 DCW [id number]) Manual Assessments Soft Tissue Assessment Soft Tissue Mobility Assessment Moderate Tone, tenderness to palpation 2/4: Pain with wincing; B suboccipitals, B Rhomboids, L Scalenes, L Upper Trap Severe tone, tenderness to palpation 3/4: Wincing and withdraw; R upper trap, R scalenes, R levator Joint Mobility Assessment Joint Mobility Assessment Hypomobility of cervical spine during joint mobilization PT-OP-K Range of Motion Start: 06/12/20 15:17 Freq: Status: Active Protocol: Document 06/12/20 14:30 DCW (Rec: 06/12/20 15:53 DCW [id number]) Cervical Spine Range of Motion Cervical Spine Active Degrees Testing Position Sitting Flexion 35 Extension 46 Rotation Left 36 Rotation Right 54 Lateral Flexion Left 30 Lateral Flexion Right 28 ROM Limitations Soft Tissue Tightness,Bony Restriction,Muscle Tone,Pain Shoulder Goniometric Range of Motion Shoulder Bilateral Active Shoulder ROM WFL Yes PT-OP-L Special Tests Start: 06/12/20 15:17 Freq: Status: Active Protocol: Document 06/12/20 14:30 DCW (Rec: 06/12/20 15:53 DCW [id number]) Special Tests Cervical Spine Special Tests Traction Test Results Improves pain Spurling's Test Test Results Positive bilateral Passive Neck Flexion Test Results Cervical Pain Slump Test Results Cervical pain Foraminal Compression Test Results Positive bilateral PT-OP-M Strength Start: 06/12/20 15:17 Freq: Status: Active Protocol: Document 06/12/20 14:30 DCW (Rec: 06/12/20 15:53 DCW [id number]) Cervical Spine Strength Cervical Spine Manual Muscle Testing Testing Position Supine Flexion (C1-2) 4 Good Extension 4+ Good+ Rotation Left 4 Good Rotation Right 4 Good Lateral Flexion Left (C3) 4+ Good+ Lateral Flexion Right (C3) 4+ Good+ PT-OP-Q Treatments Start: 06/12/20 15:17 Freq: Status: Active Protocol: Document 07/12/20 16:50 AW (Rec: 07/12/20 17:03 AW [id number]) Therapeutic Exercises Supine Exercises deep neck flexor endurance Supine Exercise Name deep neck flexor endurance Reps/Minutes 10 sec hold x 5 Comments vc for chin retraction, liftoff from towel roll Standing Exercises GH extension with dowel Standing Exercise Name GH extension with dowel Side bilateral Equipment Used dowel Reps/Minutes 5 sec hold x 10 Comments focus on thoracic extension thoracic extension Standing Exercise Name thoracic extension Equipment Used treadmill rail Reps/Minutes 10 sec x 4 Comments cues for chin retraction; let your chest fall between your arms paloff press Standing Exercise Name paloff press Side bilateral Resistance level 1 Equipment Used TB Reps/Minutes 8 reps Comments cues for core engagement resisted rows Standing Exercise Name resisted rows Side bilateral Resistance level 1 Equipment Used TB Reps/Minutes 12 x 2 Comments cues for chin retraction resisted GH extension Standing Exercise Name resisted GH extension Side bilateral Resistance level 1 Equipment Used TB Reps/Minutes 12 x 2 Comments cues for chin retraction 5 Standing Exercise Name Pect stretch doorway Reps/Minutes 2 reps Comments Feet flush with doorway, scapular retraction way down Manual Therapy Treatment Manual Traction c/s Details gr III Body Position Hooklying Other Other Manual Treatments Pt prone: PA thoracic mobs, grade III-IV, scapular mobs B, rib recoil in prone and in sitting Pt. supine: jonas c/s, UT, LS. 1st rib inf gl gr III PT-OP-R Modalities Start: 06/12/20 15:17 Freq: Status: Active Protocol: Document 07/10/20 15:17 SAK (Rec: 07/10/20 16:13 SAK [id number]) Hot Pack/Cold Pack Treatment Hot Pack Location c/s, right shoulder Patient Position Hooklying Patient Tolerance Good PT-OP-T Assessment and Plan Start: 06/12/20 15:17 Freq: Status: Active Protocol: Document 07/12/20 16:50 AW (Rec: 07/12/20 17:03 AW [id number]) Physical Therapy Assessment Impairments Impairments Functional Mobility,Pain,ROM, Soft Tissue Mobility,Strength, Tone Goals Three Impairment Severe (R Upper Trap, Scalenes , Levator) and Mod tone in neck musculature Prison Goal (LTG) Pt to present with mild tone and tenderness to palpation / : complaint of pain in bilateral UT, Scalenes, Rhomboids, and levators LTG Duration 08/13/20 Two Impairment Limited cervical ROM (35? flexion, 36? L Rotation) Telecom Assistant Goal (LTG) Pt to exhibit improved cervical AROM to 50? flexion and 55? B Rotation to improve ability to turn and look to her side without increased pain LTG Duration 08/13/20 One Impairment Pt does not have an appropriate home exercise program Short Term Goal (STG) Pt to be independent and compliant with an appropriate HEP STG Duration 07/12/20 Assessment Summary Assessment Treatment focused on manual therapy for pain reduction and improved soft tissue mobility as well as MT and ther ex for thoracic extension. Pt is feeling good about progress and may be interested in discharging after a few more visits. Physical Therapy Plan Frequency and Duration Frequency of Treatment 2x/Week Duration of Treatment 10 weeks Plan of Care Start Date 06/12/20 Plan of Care End Date 08/21/20 Therapeutic Interventions Therapeutic Interventions Home Exercise Program,Joint Mobilizations,Manual Therapy, Neuromuscular Re-education, Patient/Caregiver Education, Self-Care/Home Management,Soft Tissue Mobilization, Therapeutic Activities, Therapeutic Exercises Modalities Cold Pack/Ice Massage,Electric Stimulation,Hot Packs, Traction- Mechanical, Ultrasound Next Visit Focus/Plan Next Note Type Treatment Note Next Visit Plan Continue ther ex, manual treatments to decrease pain and soft tissue tightness, improve cervical ROM.
--- NOTE | 2020-07-19 08:25 | PT.OTN ---
Current Diagnoses Pain in right shoulder (07/19/20) Stiffness of unspecified joint, not elsewhere classified (07/19/20) Spondylosis without myelopathy or radiculopathy, cervical region (07/19/20) Cervicalgia (07/19/20) Physical Therapy Treatment Note PT-OP-A Visit Information Start: 06/12/20 15:17 Freq: Status: Active Protocol: Document 07/19/20 07:30 AMB (Rec: 07/19/20 08:21 AMB [id number]) Out-Patient Physical Therapy Visit Information Visit Information Visit Type Treatment Note Visit Start Time 07:30 Visit Stop Time 08:15 Total Visit Minutes 45 Visit Number 8 PT-OP-B Current Condition Start: 06/12/20 15:17 Freq: Status: Active Protocol: Document 06/12/20 14:30 DCW (Rec: 06/12/20 15:53 DCW [id number]) Current Condition History of Current Condition Onset Date mid-March Current Complaints Neck and upper back stiffness History of Current Condition Pt is a 54 year old female presenting with a 2.5 month history of neck and back pain following a fall in mid-March. Pt reports that she tried to step up onto a sidewalk, but caught her toe, hopped a few times to try to regain her balance, and then fell and hit her back. Pt reports she messed up my upper back and neck, and she has noticed a grinding in her neck. Pt does note that her neck is getting better, but still gives her pain with lifting laundry and groceries. Pt also reports some right shoulder pain with some positions and occasionally when lifting. Prior Treatments and Tests Prior PT treatment of low back Cervical X-ray: IMPRESSION: Mild degenerative disc disease in lower cervical spine. No significant bony foraminal stenosis. No fracture or dislocation. Per: Dionisio Naik on 04/20/2020. Lumbar x-ray: IMPRESSION: Multilevel lumbar disc degeneration, grossly unchanged. Grade 1 anterolisthesis of L4 on L5 as before. Per Ruby Kimbrough on 05/11/2020. Fluoroscopically guided, contrast-controlled bilateral L4, L5 and S1 medial branch blocks with 0.5cc of 0.5% Marcaine on 06/01/[address] Coronel PT-OP-C Subjective Start: 06/12/20 15:17 Freq: Status: Active Protocol: Document 07/19/20 07:30 AMB (Rec: 07/19/20 08:21 AMB [id number]) OP-PT Subjective Patient Comments Patient Comments Pt states she woke up this morning very stiff in her low back, not sure why. PT-OP-F Manual Assessment Start: 06/12/20 15:17 Freq: Status: Active Protocol: Document 06/12/20 14:30 DCW (Rec: 06/12/20 15:53 DCW [id number]) Manual Assessments Soft Tissue Assessment Soft Tissue Mobility Assessment Moderate Tone, tenderness to palpation 2/4: Pain with wincing; B suboccipitals, B Rhomboids, L Scalenes, L Upper Trap Severe tone, tenderness to palpation 3/4: Wincing and withdraw; R upper trap, R scalenes, R levator Joint Mobility Assessment Joint Mobility Assessment Hypomobility of cervical spine during joint mobilization PT-OP-K Range of Motion Start: 06/12/20 15:17 Freq: Status: Active Protocol: Document 06/12/20 14:30 DCW (Rec: 06/12/20 15:53 DCW [id number]) Cervical Spine Range of Motion Cervical Spine Active Degrees Testing Position Sitting Flexion 35 Extension 46 Rotation Left 36 Rotation Right 54 Lateral Flexion Left 30 Lateral Flexion Right 28 ROM Limitations Soft Tissue Tightness,Bony Restriction,Muscle Tone,Pain Shoulder Goniometric Range of Motion Shoulder Bilateral Active Shoulder ROM WFL Yes PT-OP-L Special Tests Start: 06/12/20 15:17 Freq: Status: Active Protocol: Document 06/12/20 14:30 DCW (Rec: 06/12/20 15:53 DCW [id number]) Special Tests Cervical Spine Special Tests Traction Test Results Improves pain Spurling's Test Test Results Positive bilateral Passive Neck Flexion Test Results Cervical Pain Slump Test Results Cervical pain Foraminal Compression Test Results Positive bilateral PT-OP-M Strength Start: 06/12/20 15:17 Freq: Status: Active Protocol: Document 06/12/20 14:30 DCW (Rec: 06/12/20 15:53 DCW [id number]) Cervical Spine Strength Cervical Spine Manual Muscle Testing Testing Position Supine Flexion (C1-2) 4 Good Extension 4+ Good+ Rotation Left 4 Good Rotation Right 4 Good Lateral Flexion Left (C3) 4+ Good+ Lateral Flexion Right (C3) 4+ Good+ PT-OP-Q Treatments Start: 06/12/20 15:17 Freq: Status: Active Protocol: Document 07/19/20 07:30 AMB (Rec: 07/19/20 08:21 AMB [id number]) Therapeutic Exercises Supine Exercises LTR Supine Exercise Name lower trunk roation with 65 cm ball Side bilateral Reps/Minutes 15 Sidelying Exercises Open book Side bilateral Reps/Minutes 10 resp Comments Rotate head with movement, verbal and manual cues for segmental Standing Exercises resisted rows Standing Exercise Name resisted rows Side bilateral Resistance level 2 Equipment Used TB Reps/Minutes 12 x 2 Comments cues for chin retraction resisted GH extension Standing Exercise Name resisted GH extension Side bilateral Resistance level 2 Equipment Used TB Reps/Minutes 12 x 2 Comments cues for chin retraction 5 Standing Exercise Name Pect stretch doorway Reps/Minutes 2 reps Comments Feet flush with doorway, scapular retraction way down Manual Therapy Treatment Other Other Manual Treatments Pt prone: PA thoracic mobs, grade III-IV, scapular mobs B, Pt. supine: jonas c/s, UT, LS. PT-OP-R Modalities Start: 06/12/20 15:17 Freq: Status: Active Protocol: Document 07/19/20 07:30 AMB (Rec: 07/19/20 08:25 AMB [id number]) Hot Pack/Cold Pack Treatment Hot Pack Location t spine Patient Position Prone Patient Tolerance Good PT-OP-T Assessment and Plan Start: 06/12/20 15:17 Freq: Status: Active Protocol: Document 07/19/20 07:30 AMB (Rec: 07/19/20 08:21 AMB [id number]) Physical Therapy Assessment Impairments Impairments Functional Mobility,Pain,ROM, Soft Tissue Mobility,Strength, Tone Goals Three Impairment Severe (R Upper Trap, Scalenes , Levator) and Mod tone in neck musculature Livestock Counter Goal (LTG) Pt to present with mild tone and tenderness to palpation 10/16: complaint of pain in bilateral UT, Scalenes, Rhomboids, and levators LTG Duration 08/13/20 Two Impairment Limited cervical ROM (35? flexion, 36? L Rotation) Livestock Counter Goal (LTG) Pt to exhibit improved cervical AROM to 50? flexion and 55? B Rotation to improve ability to turn and look to her side without increased pain LTG Duration 08/13/20 One Impairment Pt does not have an appropriate home exercise program Short Term Goal (STG) Pt to be independent and compliant with an appropriate HEP STG Duration 07/12/20 Assessment Summary Assessment Treatment focused on relieving stiffness. Pt walking much better when leaving PT than when entering after manual therapy and exercise. Pt feeling like things are overall going well, and will be ready to d/c in the next few weeks. Physical Therapy Plan Frequency and Duration Frequency of Treatment 2x/Week Duration of Treatment 10 weeks Plan of Care Start Date 06/12/20 Plan of Care End Date 08/21/20 Therapeutic Interventions Therapeutic Interventions Home Exercise Program,Joint Mobilizations,Manual Therapy, Neuromuscular Re-education, Patient/Caregiver Education, Self-Care/Home Management,Soft Tissue Mobilization, Therapeutic Activities, Therapeutic Exercises Modalities Cold Pack/Ice Massage,Electric Stimulation,Hot Packs, Traction- Mechanical, Ultrasound Next Visit Focus/Plan Next Note Type Treatment Note Next Visit Plan Continue ther ex, manual treatments to decrease pain and soft tissue tightness, improve cervical ROM.
--- NOTE | 2020-07-21 15:20 | PT.OTN ---
Addendum entered and electronically signed by Meera Connolly PTA 07/21/20 15:40: Pt has 2 more appts, sent up front to schedule more appts, instructed to call Dr Coronel for renew PT referral to continue PT. Original Note: Current Diagnoses Pain in right shoulder (07/21/20) Stiffness of unspecified joint, not elsewhere classified (07/21/20) Spondylosis without myelopathy or radiculopathy, cervical region (07/21/20) Cervicalgia (07/21/20) Physical Therapy Treatment Note PT-OP-A Visit Information Start: 06/12/20 15:17 Freq: Status: Active Protocol: Document 07/21/20 14:36 SP (Rec: 07/21/20 15:39 SP [id number]) Out-Patient Physical Therapy Visit Information Visit Information Visit Type Treatment Note Visit Start Time 14:36 Visit Stop Time 15:20 Total Visit Minutes 44 Visit Number 9 Number of [employer]ER Visits 1 PT-OP-B Current Condition Start: 06/12/20 15:17 Freq: Status: Active Protocol: Document 06/12/20 14:30 DCW (Rec: 06/12/20 15:53 DCW [id number]) Current Condition History of Current Condition Onset Date mid-March Current Complaints Neck and upper back stiffness History of Current Condition Pt is a 54 year old female presenting with a 2.5 month history of neck and back pain following a fall in mid-March. Pt reports that she tried to step up onto a sidewalk, but caught her toe, hopped a few times to try to regain her balance, and then fell and hit her back. Pt reports she messed up my upper back and neck, and she has noticed a grinding in her neck. Pt does note that her neck is getting better, but still gives her pain with lifting laundry and groceries. Pt also reports some right shoulder pain with some positions and occasionally when lifting. Prior Treatments and Tests Prior PT treatment of low back Cervical X-ray: IMPRESSION: Mild degenerative disc disease in lower cervical spine. No significant bony foraminal stenosis. No fracture or dislocation. Per: Dionisio Naik on 04/20/2020. Lumbar x-ray: IMPRESSION: Multilevel lumbar disc degeneration, grossly unchanged. Grade 1 anterolisthesis of L4 on L5 as before. Per Ruby Kimbrough on 05/11/2020. Fluoroscopically guided, contrast-controlled bilateral L4, L5 and S1 medial branch blocks with 0.5cc of 0.5% Marcaine on 06/01/[address] Coronel PT-OP-C Subjective Start: 06/12/20 15:17 Freq: Status: Active Protocol: Document 07/21/20 14:36 SP (Rec: 07/21/20 15:39 SP [id number]) OP-PT Subjective Patient Comments Patient Comments Pt reported lower body, back pinch and goes into the R hip, isn't always able to put things up on her selves at home. Notices coming to PT has helped and always feels better when leaves. Patient Reported Progress Improving PT-OP-F Manual Assessment Start: 06/12/20 15:17 Freq: Status: Active Protocol: Document 06/12/20 14:30 DCW (Rec: 06/12/20 15:53 DCW [id number]) Manual Assessments Soft Tissue Assessment Soft Tissue Mobility Assessment Moderate Tone, tenderness to palpation 2/4: Pain with wincing; B suboccipitals, B Rhomboids, L Scalenes, L Upper Trap Severe tone, tenderness to palpation 3/4: Wincing and withdraw; R upper trap, R scalenes, R levator Joint Mobility Assessment Joint Mobility Assessment Hypomobility of cervical spine during joint mobilization PT-OP-K Range of Motion Start: 06/12/20 15:17 Freq: Status: Active Protocol: Document 06/12/20 14:30 DCW (Rec: 06/12/20 15:53 DCW [id number]) Cervical Spine Range of Motion Cervical Spine Active Degrees Testing Position Sitting Flexion 35 Extension 46 Rotation Left 36 Rotation Right 54 Lateral Flexion Left 30 Lateral Flexion Right 28 ROM Limitations Soft Tissue Tightness,Bony Restriction,Muscle Tone,Pain Shoulder Goniometric Range of Motion Shoulder Bilateral Active Shoulder ROM WFL Yes PT-OP-L Special Tests Start: 06/12/20 15:17 Freq: Status: Active Protocol: Document 06/12/20 14:30 DCW (Rec: 06/12/20 15:53 DCW [id number]) Special Tests Cervical Spine Special Tests Traction Test Results Improves pain Spurling's Test Test Results Positive bilateral Passive Neck Flexion Test Results Cervical Pain Slump Test Results Cervical pain Foraminal Compression Test Results Positive bilateral PT-OP-M Strength Start: 06/12/20 15:17 Freq: Status: Active Protocol: Document 06/12/20 14:30 DCW (Rec: 06/12/20 15:53 DCW [id number]) Cervical Spine Strength Cervical Spine Manual Muscle Testing Testing Position Supine Flexion (C1-2) 4 Good Extension 4+ Good+ Rotation Left 4 Good Rotation Right 4 Good Lateral Flexion Left (C3) 4+ Good+ Lateral Flexion Right (C3) 4+ Good+ PT-OP-Q Treatments Start: 06/12/20 15:17 Freq: Status: Active Protocol: Document 07/21/20 14:36 SP (Rec: 07/21/20 15:39 SP [id number]) Therapeutic Exercises Supine Exercises HS stretch w /strap Side bilateral Equipment Used strap Reps/Minutes 30 x2 LTR Supine Exercise Name lower trunk roation with 65 cm ball Side bilateral Reps/Minutes 15 Sidelying Exercises Open book Side bilateral Reps/Minutes 10 resp Comments Rotate head with movement, verbal and manual cues for segmental Standing Exercises snow saritha Standing Exercise Name back to wall Resistance AROM Reps/Minutes x5 shld flexion/ abd TB Side bilateral Resistance #1 Reps/Minutes x10 Comments cued scap stabilization eccentric direction resisted rows Standing Exercise Name resisted rows Side bilateral Resistance level 2 Equipment Used TB Reps/Minutes 12 x 2 Comments cues for chin retraction, scap stab resisted GH extension Standing Exercise Name resisted GH extension Side bilateral Resistance level 2 Equipment Used TB Reps/Minutes 12 x 2 Comments cues for chin retraction, scap stab wall slides Standing Exercise Name Wall clock (3 pos) Side right Resistance #1 Reps/Minutes 2x5 PT-OP-R Modalities Start: 06/12/20 15:17 Freq: Status: Active Protocol: Document 07/19/20 07:30 AMB (Rec: 07/19/20 08:25 AMB [id number]) Hot Pack/Cold Pack Treatment Hot Pack Location t spine Patient Position Prone Patient Tolerance Good PT-OP-T Assessment and Plan Start: 06/12/20 15:17 Freq: Status: Active Protocol: Document 07/21/20 14:36 SP (Rec: 07/21/20 15:39 SP [id number]) Physical Therapy Assessment Goals Three Impairment Severe (R Upper Trap, Scalenes , Levator) and Mod tone in neck musculature Naval Aircrewman Helicopter Goal (LTG) Pt to present with mild tone and tenderness to palpation 1/ : complaint of pain in bilateral UT, Scalenes, Rhomboids, and levators LTG Duration 08/13/20 Two Impairment Limited cervical ROM (35? flexion, 36? L Rotation) Naval Aircrewman Helicopter Goal (LTG) Pt to exhibit improved cervical AROM to 50? flexion and 55? B Rotation to improve ability to turn and look to her side without increased pain LTG Duration 08/13/20 One Impairment Pt does not have an appropriate home exercise program Short Term Goal (STG) Pt to be independent and compliant with an appropriate HEP STG Duration 07/12/20 Assessment Summary Assessment Tx focused on LS/ TS rotational flexibility, then standing ther ex HEP review and initiation R shld resisted FF, abd, wall clock, and snow saritha to allow for putting things up in shelves and HS stretch supine due to LTR pinching posterior R gluteal cleft area with good responses to all today. Cuing for scap stabilization and core PPT facilitation when needed for decrease over recruitment of post neck and LB musculature. Physical Therapy Plan Frequency and Duration Frequency of Treatment 2x/Week Duration of Treatment 10 weeks Plan of Care Start Date 06/12/20 Plan of Care End Date 08/21/20 Therapeutic Interventions Therapeutic Interventions Home Exercise Program,Joint Mobilizations,Manual Therapy, Neuromuscular Re-education, Patient/Caregiver Education, Self-Care/Home Management,Soft Tissue Mobilization, Therapeutic Activities, Therapeutic Exercises Modalities Cold Pack/Ice Massage,Electric Stimulation,Hot Packs, Traction- Mechanical, Ultrasound Discharge Physical Therapy Discharge Comments Insurance visit limitations only 3 more approved visits. Pt to call Dr Coronel for order of more visits, not yet back to baseline. Next Visit Focus/Plan Next Note Type Treatment Note Next Visit Plan Continue ther ex, manual treatments to decrease pain and soft tissue tightness, improve cervical ROM.
--- NOTE | 2020-07-26 17:01 | PT.OTN ---
Current Diagnoses Pain in right shoulder (07/26/20) Stiffness of unspecified joint, not elsewhere classified (07/26/20) Spondylosis without myelopathy or radiculopathy, cervical region (07/26/20) Cervicalgia (07/26/20) Physical Therapy Treatment Note PT-OP-A Visit Information Start: 06/12/20 15:17 Freq: Status: Active Protocol: Document 07/26/20 16:43 AW (Rec: 07/26/20 17:01 AW [id number]) Out-Patient Physical Therapy Visit Information Visit Information Visit Type Treatment Note Visit Start Time 16:00 Visit Stop Time 16:42 Total Visit Minutes 42 Visit Number 10 Evaluation Information Evaluation Date 06/12/20 PT-OP-B Current Condition Start: 06/12/20 15:17 Freq: Status: Active Protocol: Document 06/12/20 14:30 DCW (Rec: 06/12/20 15:53 DCW [id number]) Current Condition History of Current Condition Onset Date mid-March Current Complaints Neck and upper back stiffness History of Current Condition Pt is a 54 year old female presenting with a 2.5 month history of neck and back pain following a fall in mid-March. Pt reports that she tried to step up onto a sidewalk, but caught her toe, hopped a few times to try to regain her balance, and then fell and hit her back. Pt reports she messed up my upper back and neck, and she has noticed a grinding in her neck. Pt does note that her neck is getting better, but still gives her pain with lifting laundry and groceries. Pt also reports some right shoulder pain with some positions and occasionally when lifting. Prior Treatments and Tests Prior PT treatment of low back Cervical X-ray: IMPRESSION: Mild degenerative disc disease in lower cervical spine. No significant bony foraminal stenosis. No fracture or dislocation. Per: Dionisio Naik on 04/20/2020. Lumbar x-ray: IMPRESSION: Multilevel lumbar disc degeneration, grossly unchanged. Grade 1 anterolisthesis of L4 on L5 as before. Per Ruby Kimbrough on 05/11/2020. Fluoroscopically guided, contrast-controlled bilateral L4, L5 and S1 medial branch blocks with 0.5cc of 0.5% Marcaine on 06/01/[address] Coronel PT-OP-C Subjective Start: 06/12/20 15:17 Freq: Status: Active Protocol: Document 07/26/20 16:43 AW (Rec: 07/26/20 17:01 AW [id number]) OP-PT Subjective Patient Comments Patient Comments Pt has worked a long day and if feeling stiff in her upper and middle back. PT-OP-F Manual Assessment Start: 06/12/20 15:17 Freq: Status: Active Protocol: Document 06/12/20 14:30 DCW (Rec: 06/12/20 15:53 DCW [id number]) Manual Assessments Soft Tissue Assessment Soft Tissue Mobility Assessment Moderate Tone, tenderness to palpation 2/4: Pain with wincing; B suboccipitals, B Rhomboids, L Scalenes, L Upper Trap Severe tone, tenderness to palpation 3/4: Wincing and withdraw; R upper trap, R scalenes, R levator Joint Mobility Assessment Joint Mobility Assessment Hypomobility of cervical spine during joint mobilization PT-OP-K Range of Motion Start: 06/12/20 15:17 Freq: Status: Active Protocol: Document 06/12/20 14:30 DCW (Rec: 06/12/20 15:53 DCW [id number]) Cervical Spine Range of Motion Cervical Spine Active Degrees Testing Position Sitting Flexion 35 Extension 46 Rotation Left 36 Rotation Right 54 Lateral Flexion Left 30 Lateral Flexion Right 28 ROM Limitations Soft Tissue Tightness,Bony Restriction,Muscle Tone,Pain Shoulder Goniometric Range of Motion Shoulder Bilateral Active Shoulder ROM WFL Yes PT-OP-L Special Tests Start: 06/12/20 15:17 Freq: Status: Active Protocol: Document 06/12/20 14:30 DCW (Rec: 06/12/20 15:53 DCW [id number]) Special Tests Cervical Spine Special Tests Traction Test Results Improves pain Spurling's Test Test Results Positive bilateral Passive Neck Flexion Test Results Cervical Pain Slump Test Results Cervical pain Foraminal Compression Test Results Positive bilateral PT-OP-M Strength Start: 06/12/20 15:17 Freq: Status: Active Protocol: Document 06/12/20 14:30 DCW (Rec: 06/12/20 15:53 DCW [id number]) Cervical Spine Strength Cervical Spine Manual Muscle Testing Testing Position Supine Flexion (C1-2) 4 Good Extension 4+ Good+ Rotation Left 4 Good Rotation Right 4 Good Lateral Flexion Left (C3) 4+ Good+ Lateral Flexion Right (C3) 4+ Good+ PT-OP-Q Treatments Start: 06/12/20 15:17 Freq: Status: Active Protocol: Document 07/26/20 16:43 AW (Rec: 07/26/20 17:01 AW [id number]) Therapeutic Exercises Supine Exercises periscapular self mob Supine Exercise Name periscapular self mob Side right Equipment Used sm tennis ball Reps/Minutes 3 min Comments with active GH rotation, flexion, abduction, and scapular protraction Sidelying Exercises Open book Side bilateral Reps/Minutes 10 reps Comments eyes/head follow hand, verbal and manual cues for segmental rotation Sitting Exercises seated lumbar flexion Sitting Exercise Name seated lumbar flexion Comments forward x 2 and each side x 1 Standing Exercises snow saritha Standing Exercise Name back to wall Resistance AROM Reps/Minutes x5 Comments wall posture with focus on reducing T/L extension with OH movement Manual Therapy Treatment Soft Tissue Mobilization 2 Body Location B Upper Trap Mobilization Type Strumming,Sustained Pressure Intensity/Depth Moderate Body Position Supine 1 Body Location Suboccipitals & cervical paraspinals Mobilization Type Strumming,Sustained Pressure Intensity/Depth Moderate Body Position Supine Comments with cervical distraction Other Other Manual Treatments Pt prone: PA thoracic mobs, grade III-IV, scapular mobs B, PT-OP-R Modalities Start: 06/12/20 15:17 Freq: Status: Active Protocol: Document 07/19/20 07:30 AMB (Rec: 07/19/20 08:25 AMB [id number]) Hot Pack/Cold Pack Treatment Hot Pack Location t spine Patient Position Prone Patient Tolerance Good PT-OP-T Assessment and Plan Start: 06/12/20 15:17 Freq: Status: Active Protocol: Document 07/26/20 16:43 AW (Rec: 07/26/20 17:01 AW [id number]) Physical Therapy Assessment Impairments Impairments Functional Mobility,Pain,ROM, Soft Tissue Mobility,Strength, Tone Goals Three Impairment Severe (R Upper Trap, Scalenes , Levator) and Mod tone in neck musculature Media/Instructional Designer Goal (LTG) Pt to present with mild tone and tenderness to palpation 10/16: complaint of pain in bilateral UT, Scalenes, Rhomboids, and levators LTG Duration 08/13/20 Two Impairment Limited cervical ROM (35? flexion, 36? L Rotation) Media/Instructional Designer Goal (LTG) Pt to exhibit improved cervical AROM to 50? flexion and 55? B Rotation to improve ability to turn and look to her side without increased pain LTG Duration 08/13/20 One Impairment Pt does not have an appropriate home exercise program Short Term Goal (STG) Pt to be independent and compliant with an appropriate HEP STG Duration 07/12/20 Assessment Summary Assessment Treatment focused on relieving stiffness via scapular and thoracic mobs, STM UT and periscapular musculature. Pt left feeling better and with increased confidence in cervical and glenohumeral mobility. Physical Therapy Plan Frequency and Duration Frequency of Treatment 2x/Week Duration of Treatment 10 weeks Plan of Care Start Date 06/12/20 Plan of Care End Date 08/21/20 Therapeutic Interventions Therapeutic Interventions Home Exercise Program,Joint Mobilizations,Manual Therapy, Neuromuscular Re-education, Patient/Caregiver Education, Self-Care/Home Management,Soft Tissue Mobilization, Therapeutic Activities, Therapeutic Exercises Modalities Cold Pack/Ice Massage,Electric Stimulation,Hot Packs, Traction- Mechanical, Ultrasound Discharge Physical Therapy Discharge Comments Insurance visit limitations only 2 more approved visits. Pt to call Dr Coronel for order of more visits, not yet back to baseline. Next Visit Focus/Plan Next Note Type Treatment Note Next Visit Plan Continue ther ex, manual treatments to decrease pain and soft tissue tightness, improve cervical ROM.
--- NOTE | 2020-07-28 09:02 | PT.OTN ---
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 Pt reports that she tried to step up onto a sidewalk, but caught her toe, hopped a few times to try to regain her balance, and then fell and hit her back. Pt reports she messed up my upper back and neck, and she has noticed a grinding in her neck. Pt does note that her neck is getting better, but still gives her pain with lifting laundry and groceries. Pt also reports some right shoulder pain with some positions and occasionally when lifting. Prior Treatments and Tests Prior PT treatment of low back Cervical X-ray: IMPRESSION: Mild degenerative disc disease in lower cervical spine. No significant bony foraminal stenosis. No fracture or dislocation. Per: Dionisio Naik on 04/20/2020. Lumbar x-ray: IMPRESSION: Multilevel lumbar disc degeneration, grossly unchanged. Grade 1 anterolisthesis of L4 on L5 as before. Per Ruby Kimbrough on 05/11/2020. Fluoroscopically guided, contrast-controlled bilateral L4, L5 and S1 medial branch blocks with 0.5cc of 0.5% Marcaine on 06/01/[address] Coronel PT-OP-C Subjective Start: 06/12/20 15:17 Freq: Status: Active Protocol: Document 07/28/20 08:22 SP (Rec: 07/28/20 09:03 SP [id number]) OP-PT Subjective Patient Comments Patient Comments Pt reported last 2 morning when woke up headaches, shoulders more stiffness than pain, the rest of my body not liking me from the hard fall on hands and knees still recovering . PT-OP-F Manual Assessment Start: 06/12/20 15:17 Freq: Status: Active Protocol: Document 06/12/20 14:30 DCW (Rec: 06/12/20 15:53 DCW [id number]) Manual Assessments Soft Tissue Assessment Soft Tissue Mobility Assessment Moderate Tone, tenderness to palpation 2/4: Pain with wincing; B suboccipitals, B Rhomboids, L Scalenes, L Upper Trap Severe tone, tenderness to palpation 3/4: Wincing and withdraw; R upper trap, R scalenes, R levator Joint Mobility Assessment Joint Mobility Assessment Hypomobility of cervical spine during joint mobilization PT-OP-K Range of Motion Start: 06/12/20 15:17 Freq: Status: Active Protocol: Document 06/12/20 14:30 DCW (Rec: 06/12/20 15:53 DCW [id number]) Cervical Spine Range of Motion Cervical Spine Active Degrees Testing Position Sitting Flexion 35 Extension 46 Rotation Left 36 Rotation Right 54 Lateral Flexion Left 30 Lateral Flexion Right 28 ROM Limitations Soft Tissue Tightness,Bony Restriction,Muscle Tone,Pain Shoulder Goniometric Range of Motion Shoulder Bilateral Active Shoulder ROM WFL Yes PT-OP-L Special Tests Start: 06/12/20 15:17 Freq: Status: Active Protocol: Document 06/12/20 14:30 DCW (Rec: 06/12/20 15:53 DCW [id number]) Special Tests Cervical Spine Special Tests Traction Test Results Improves pain Spurling's Test Test Results Positive bilateral Passive Neck Flexion Test Results Cervical Pain Slump Test Results Cervical pain Foraminal Compression Test Results Positive bilateral PT-OP-M Strength Start: 06/12/20 15:17 Freq: Status: Active Protocol: Document 06/12/20 14:30 DCW (Rec: 06/12/20 15:53 DCW [id number]) Cervical Spine Strength Cervical Spine Manual Muscle Testing Testing Position Supine Flexion (C1-2) 4 Good Extension 4+ Good+ Rotation Left 4 Good Rotation Right 4 Good Lateral Flexion Left (C3) 4+ Good+ Lateral Flexion Right (C3) 4+ Good+ PT-OP-Q Treatments Start: 06/12/20 15:17 Freq: Status: Active Protocol: Document 07/28/20 08:22 SP (Rec: 07/28/20 09:03 SP [id number]) Therapeutic Exercises Supine Exercises periscapular self mob Supine Exercise Name periscapular self mob Side right Equipment Used sm tennis ball Reps/Minutes 3 min Comments with active GH rotation, flexion, abduction, and scapular protraction deep neck flexor endurance Supine Exercise Name deep neck flexor endurance Reps/Minutes 10 sec hold x 5 Comments vc for chin retraction, liftoff from towel roll Sidelying Exercises Open book Side bilateral Reps/Minutes 10 reps Comments eyes/head follow hand, verbal and manual cues for segmental rotation- good Standing Exercises lat, QL sink stretch Side bilateral Reps/Minutes 30 x2 snow saritha Standing Exercise Name back to wall Resistance AROM Reps/Minutes x5 Comments wall posture with focus on reducing T/L extension with OH movement thoracic extension Standing Exercise Name thoracic extension Equipment Used elbow wall walking Reps/Minutes x8 Comments cues for chin retraction; let your chest fall between your arms resisted rows Standing Exercise Name resisted rows Side bilateral Resistance level 2 Equipment Used TB Reps/Minutes 12 x 2 Comments cues for chin retraction, scap stab resisted GH extension Standing Exercise Name resisted GH extension Side bilateral Resistance level 2 Equipment Used TB Reps/Minutes 12 x 2 Comments cues for chin retraction, scap stab Manual Therapy Treatment Soft Tissue Mobilization 2 Body Location B Upper Trap Mobilization Type Strumming,Sustained Pressure Intensity/Depth Moderate Body Position Supine 1 Body Location Suboccipitals & cervical paraspinals Mobilization Type Strumming,Sustained Pressure Intensity/Depth Moderate Body Position Supine Comments with cervical distraction PT-OP-R Modalities Start: 06/12/20 15:17 Freq: Status: Active Protocol: Document 07/19/20 07:30 AMB (Rec: 07/19/20 08:25 AMB [id number]) Hot Pack/Cold Pack Treatment Hot Pack Location t spine Patient Position Prone Patient Tolerance Good PT-OP-T Assessment and Plan Start: 06/12/20 15:17 Freq: Status: Active Protocol: Document 07/28/20 08:22 SP (Rec: 07/28/20 09:03 SP [id number]) Physical Therapy Assessment Goals Three Impairment Severe (R Upper Trap, Scalenes , Levator) and Mod tone in neck musculature Chief Operations Officer Goal (LTG) Pt to present with mild tone and tenderness to palpation / : complaint of pain in bilateral UT, Scalenes, Rhomboids, and levators LTG Duration 08/13/20 Two Impairment Limited cervical ROM (35? flexion, 36? L Rotation) Half-Way Goal (LTG) Pt to exhibit improved cervical AROM to 50? flexion and 55? B Rotation to improve ability to turn and look to her side without increased pain LTG Duration 08/13/20 One Impairment Pt does not have an appropriate home exercise program Short Term Goal (STG) Pt to be independent and compliant with an appropriate HEP STG Duration 07/12/20 Assessment Summary Assessment Tx focused on reduced stiffness and segmental mobiltiy with cuing for allowing cervical movement but not primary and scap stabilization (depression awareness). Added TS ext elbow wall walking with good feedback, that really helps loosen up my mid back, cued awareness of PPT and scap depression with good carryover . Pt reported felt looser when left. Physical Therapy Plan Frequency and Duration Frequency of Treatment 2x/Week Duration of Treatment 10 weeks Plan of Care Start Date 06/12/20 Plan of Care End Date 08/21/20 Therapeutic Interventions Therapeutic Interventions Home Exercise Program,Joint Mobilizations,Manual Therapy, Neuromuscular Re-education, Patient/Caregiver Education, Self-Care/Home Management,Soft Tissue Mobilization, Therapeutic Activities, Therapeutic Exercises Modalities Cold Pack/Ice Massage,Electric Stimulation,Hot Packs, Traction- Mechanical, Ultrasound Discharge Physical Therapy Discharge Comments Insurance visit limitations only 2 more approved visits. Pt to call Dr Coronel for order of more visits, not yet back to baseline. Next Visit Focus/Plan Next Note Type Treatment Note Next Visit Plan Continue ther ex, manual treatments to decrease pain and soft tissue tightness, improve cervical ROM.
--- NOTE | 2020-07-31 13:45 | PT.OTN ---
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 Pt reports that she tried to step up onto a sidewalk, but caught her toe, hopped a few times to try to regain her balance, and then fell and hit her back. Pt reports she messed up my upper back and neck, and she has noticed a grinding in her neck. Pt does note that her neck is getting better, but still gives her pain with lifting laundry and groceries. Pt also reports some right shoulder pain with some positions and occasionally when lifting. Prior Treatments and Tests Prior PT treatment of low back Cervical X-ray: IMPRESSION: Mild degenerative disc disease in lower cervical spine. No significant bony foraminal stenosis. No fracture or dislocation. Per: Dionisio Naik on 04/20/2020. Lumbar x-ray: IMPRESSION: Multilevel lumbar disc degeneration, grossly unchanged. Grade 1 anterolisthesis of L4 on L5 as before. Per Ruby Kimbrough on 05/11/2020. Fluoroscopically guided, contrast-controlled bilateral L4, L5 and S1 medial branch blocks with 0.5cc of 0.5% Marcaine on 06/01/[address] Coronel PT-OP-C Subjective Start: 06/12/20 15:17 Freq: Status: Active Protocol: Document 07/31/20 13:02 SP (Rec: 07/31/20 13:45 SP [id number]) OP-PT Subjective Patient Comments Patient Comments Pt reported was able trim and layer her hair herself recently but not ableto get into pony tail. Pt stated stated is waiting on increased PTO to be able to have time off for scheduling nerve ablation on L. Pt was doing dished before arriving to PT and LB tired, over the weekend dishes causes her B feet to go numb while standing on padded rug. PT-OP-F Manual Assessment Start: 06/12/20 15:17 Freq: Status: Active Protocol: Document 06/12/20 14:30 DCW (Rec: 06/12/20 15:53 DCW [id number]) Manual Assessments Soft Tissue Assessment Soft Tissue Mobility Assessment Moderate Tone, tenderness to palpation 2/4: Pain with wincing; B suboccipitals, B Rhomboids, L Scalenes, L Upper Trap Severe tone, tenderness to palpation 3/4: Wincing and withdraw; R upper trap, R scalenes, R levator Joint Mobility Assessment Joint Mobility Assessment Hypomobility of cervical spine during joint mobilization PT-OP-K Range of Motion Start: 06/12/20 15:17 Freq: Status: Active Protocol: Document 06/12/20 14:30 DCW (Rec: 06/12/20 15:53 DCW [id number]) Cervical Spine Range of Motion Cervical Spine Active Degrees Testing Position Sitting Flexion 35 Extension 46 Rotation Left 36 Rotation Right 54 Lateral Flexion Left 30 Lateral Flexion Right 28 ROM Limitations Soft Tissue Tightness,Bony Restriction,Muscle Tone,Pain Shoulder Goniometric Range of Motion Shoulder Bilateral Active Shoulder ROM WFL Yes PT-OP-L Special Tests Start: 06/12/20 15:17 Freq: Status: Active Protocol: Document 06/12/20 14:30 DCW (Rec: 06/12/20 15:53 DCW [id number]) Special Tests Cervical Spine Special Tests Traction Test Results Improves pain Spurling's Test Test Results Positive bilateral Passive Neck Flexion Test Results Cervical Pain Slump Test Results Cervical pain Foraminal Compression Test Results Positive bilateral PT-OP-M Strength Start: 06/12/20 15:17 Freq: Status: Active Protocol: Document 06/12/20 14:30 DCW (Rec: 06/12/20 15:53 DCW [id number]) Cervical Spine Strength Cervical Spine Manual Muscle Testing Testing Position Supine Flexion (C1-2) 4 Good Extension 4+ Good+ Rotation Left 4 Good Rotation Right 4 Good Lateral Flexion Left (C3) 4+ Good+ Lateral Flexion Right (C3) 4+ Good+ PT-OP-Q Treatments Start: 06/12/20 15:17 Freq: Status: Active Protocol: Document 07/31/20 13:02 SP (Rec: 07/31/20 13:45 SP [id number]) Cardio Equipment Upper Body Ergometer (UBE) Duration (Minutes) 6 RPM 46 Seat Position 13 Height 2 Other resistance 120, back pad and foot blocks front rests Therapeutic Exercises Sidelying Exercises Open book Side bilateral Reps/Minutes 10 reps Comments eyes/head follow hand, verbal and manual cues for segmental rotation- good Sitting Exercises seated lumbar flexion Sitting Exercise Name seated lumbar flexion and sidebend stretch Comments forward x 2 and each side x 1 hold 30 each Standing Exercises lat, QL sink stretch Side bilateral Reps/Minutes 30 x2 shld flexion/ abd TB Side bilateral Resistance #1 Reps/Minutes x10 each Comments cued scap stabilization eccentric direction thoracic extension Standing Exercise Name thoracic extension Equipment Used elbow wall walking Reps/Minutes x8 Comments cues for chin retraction; let your chest fall between your arms resisted rows Standing Exercise Name resisted rows Side bilateral Resistance level #2 L, #3 R Equipment Used TB Reps/Minutes 12 x 2 Comments cues for chin retraction, scap stab resisted GH extension Standing Exercise Name resisted GH extension Side bilateral Resistance level # 2 L, # R Equipment Used TB Reps/Minutes 15 x 2 Comments cues for chin retraction, scap stab PT-OP-R Modalities Start: 06/12/20 15:17 Freq: Status: Active Protocol: Document 07/19/20 07:30 AMB (Rec: 07/19/20 08:25 AMB [id number]) Hot Pack/Cold Pack Treatment Hot Pack Location t spine Patient Position Prone Patient Tolerance Good PT-OP-T Assessment and Plan Start: 06/12/20 15:17 Freq: Status: Active Protocol: Document 07/31/20 13:02 SP (Rec: 07/31/20 13:45 SP [id number]) Physical Therapy Assessment Goals Three Impairment Severe (R Upper Trap, Scalenes , Levator) and Mod tone in neck musculature Half-Way Goal (LTG) Pt to present with mild tone and tenderness to palpation / : complaint of pain in bilateral UT, Scalenes, Rhomboids, and levators LTG Duration 08/13/20 Two Impairment Limited cervical ROM (35? flexion, 36? L Rotation) Half-Way Goal (LTG) Pt to exhibit improved cervical AROM to 50? flexion and 55? B Rotation to improve ability to turn and look to her side without increased pain LTG Duration 08/13/20 One Impairment Pt does not have an appropriate home exercise program Short Term Goal (STG) Pt to be independent and compliant with an appropriate HEP STG Duration 07/12/20 Assessment Summary Assessment Pt required cuing for scap depression stabilization durign TB ex but with mirror helped self feedback and cued PPT for core stabilization, improved post seated stretching L/S. Open book onside to decrease stiffness in mid back. Physical Therapy Plan Frequency and Duration Frequency of Treatment 2x/Week Duration of Treatment 10 weeks Plan of Care Start Date 06/12/20 Plan of Care End Date 08/21/20 Therapeutic Interventions Therapeutic Interventions Home Exercise Program,Joint Mobilizations,Manual Therapy, Neuromuscular Re-education, Patient/Caregiver Education, Self-Care/Home Management,Soft Tissue Mobilization, Therapeutic Activities, Therapeutic Exercises Modalities Cold Pack/Ice Massage,Electric Stimulation,Hot Packs, Traction- Mechanical, Ultrasound Discharge Physical Therapy Discharge Comments Insurance visit limitations no more approved visits, pt has purple sheet to schedule more when approved, 2x wk for 4 weeks out to POC 08/21/20 updated. Pt to call Dr Coronel for order of more visits, not yet back to baseline. Next Visit Focus/Plan Next Note Type Treatment Note Next Visit Plan Continue per PT POC: ther ex, manual treatments to decrease pain and soft tissue tightness, improve cervical ROM.
--- NOTE | 2020-08-17 11:16 | PT.OTN ---
Current Diagnoses Pain in right shoulder (08/17/20) Stiffness of unspecified joint, not elsewhere classified (08/17/20) Spondylosis without myelopathy or radiculopathy, cervical region (08/17/20) Cervicalgia (08/17/20) Physical Therapy Treatment Note PT-OP-A Visit Information Start: 06/12/20 15:17 Freq: Status: Active Protocol: Document 08/17/20 10:35 DCW (Rec: 08/17/20 11:16 DCW [id number]) Out-Patient Physical Therapy Visit Information Visit Information Visit Type Progress Note Visit Start Time 10:35 Visit Stop Time 11:15 Total Visit Minutes 40 Visit Number 13 Number of PERSONNEL CONSULTANT Visits 0 Evaluation Information Evaluation Date 06/12/20 PT-OP-B Current Condition Start: 06/12/20 15:17 Freq: Status: Active Protocol: Document 06/12/20 14:30 DCW (Rec: 06/12/20 15:53 DCW [id number]) Current Condition History of Current Condition Onset Date mid-March Current Complaints Neck and upper back stiffness History of Current Condition Pt is a 54 year old female presenting with a 2.5 month history of neck and back pain following a fall in mid-March. Pt reports that she tried to step up onto a sidewalk, but caught her toe, hopped a few times to try to regain her balance, and then fell and hit her back. Pt reports she messed up my upper back and neck, and she has noticed a grinding in her neck. Pt does note that her neck is getting better, but still gives her pain with lifting laundry and groceries. Pt also reports some right shoulder pain with some positions and occasionally when lifting. Prior Treatments and Tests Prior PT treatment of low back Cervical X-ray: IMPRESSION: Mild degenerative disc disease in lower cervical spine. No significant bony foraminal stenosis. No fracture or dislocation. Per: Dionisio Naki on 04/20/2020. Lumbar x-ray: IMPRESSION: Multilevel lumbar disc degeneration, grossly unchanged. Grade 1 anterolisthesis of L4 on L5 as before. Per Ruby Kimbrough on 05/11/2020. Fluoroscopically guided, contrast-controlled bilateral L4, L5 and S1 medial branch blocks with 0.5cc of 0.5% Marcaine on 06/01/[address] Coronel PT-OP-C Subjective Start: 06/12/20 15:17 Freq: Status: Active Protocol: Document 08/17/20 10:35 DCW (Rec: 08/17/20 11:16 DCW [id number]) OP-PT Subjective Patient Comments Patient Comments Pt notes that although she still frequently gets stiffness and pain in her neck , it is much better than it was when she began PT two months ago. Also admits that she got a hole in her air mattress last night, so she slept very crooked. PT-OP-F Manual Assessment Start: 06/12/20 15:17 Freq: Status: Active Protocol: Document 08/17/20 10:35 DCW (Rec: 08/17/20 10:49 DCW [id number]) Manual Assessments Soft Tissue Assessment Soft Tissue Mobility Assessment Moderate Tone, tenderness to palpation 1/4: Complaint of pain; B suboccipitals, B Rhomboids, B Scalenes, B Upper Trap Joint Mobility Assessment Joint Mobility Assessment Mild hypomobility of cervical spine during joint mobilization PT-OP-K Range of Motion Start: 06/12/20 15:17 Freq: Status: Active Protocol: Document 08/17/20 10:35 DCW (Rec: 08/17/20 10:49 DCW [id number]) Cervical Spine Range of Motion Cervical Spine Active Degrees Testing Position Sitting Flexion 54 Extension 45 Rotation Left 61 Rotation Right 59 Lateral Flexion Left 28 Lateral Flexion Right 35 ROM Limitations Soft Tissue Tightness,Muscle Tone PT-OP-L Special Tests Start: 06/12/20 15:17 Freq: Status: Active Protocol: Document 08/17/20 10:35 DCW (Rec: 08/17/20 10:49 DCW [id number]) Special Tests Cervical Spine Special Tests Spurling's Test Test Results Negative Passive Neck Flexion Test Results Negative Slump Test Results Negative Foraminal Compression Test Results Negative PT-OP-M Strength Start: 06/12/20 15:17 Freq: Status: Active Protocol: Document 08/17/20 10:35 DCW (Rec: 08/17/20 10:49 DCW [id number]) Cervical Spine Strength Cervical Spine Manual Muscle Testing Testing Position Sitting Flexion (C1-2) 4+ Good+ Extension 4+ Good+ Rotation Left 4+ Good+ Rotation Right 4+ Good+ Lateral Flexion Left (C3) 4+ Good+ Lateral Flexion Right (C3) 4+ Good+ PT-OP-Q Treatments Start: 06/12/20 15:17 Freq: Status: Active Protocol: Document 08/17/20 10:35 DCW (Rec: 08/17/20 11:16 DCW [id number]) Therapeutic Exercises Standing Exercises snow saritha Standing Exercise Name back to wall Resistance AROM Reps/Minutes x5 Comments wall posture with focus on reducing T/L extension with OH movement resisted rows Standing Exercise Name resisted rows Side bilateral Resistance Lv 2 Equipment Used TB Reps/Minutes 12 x 2 Comments cues for chin retraction, scap stab resisted GH extension Standing Exercise Name resisted GH extension Side bilateral Resistance Lv 2 Equipment Used TB Reps/Minutes 15 x 2 Comments cues for chin retraction, scap stab Manual Therapy Treatment Soft Tissue Mobilization 2 Body Location B Upper Trap Mobilization Type Strumming,Sustained Pressure Intensity/Depth Moderate Body Position Supine 1 Body Location Suboccipitals & cervical paraspinals Mobilization Type Strumming,Sustained Pressure Intensity/Depth Moderate Body Position Supine Comments with cervical distraction Joint Mobilizations 1 Joint C4-7 Direction P->A Grade III Body Position Supine Manual Traction c/s Details gr III Body Position Hooklying Other Other Manual Treatments MMT, ROM, Special testing PT-OP-R Modalities Start: 06/12/20 15:17 Freq: Status: Active Protocol: Document 07/19/20 07:30 AMB (Rec: 07/19/20 08:25 AMB [id number]) Hot Pack/Cold Pack Treatment Hot Pack Location t spine Patient Position Prone Patient Tolerance Good PT-OP-T Assessment and Plan Start: 06/12/20 15:17 Freq: Status: Active Protocol: Document 08/17/20 10:35 DCW (Rec: 08/17/20 11:16 DCW [id number]) Physical Therapy Assessment Goals Three Impairment Severe (R Upper Trap, Scalenes , Levator) and Mod tone in neck musculature Penitentiary Goal (LTG) Pt to present with mild tone and tenderness to palpation 10/16: complaint of pain in bilateral UT, Scalenes, Rhomboids, and levators LTG Duration 10/17/20 - Improving Two Impairment Limited cervical ROM (35? flexion, 36? L Rotation) Penitentiary Goal (LTG) Pt to exhibit improved cervical AROM to 50? flexion and 55? B Rotation to improve ability to turn and look to her side without increased pain LTG Duration 10/17/20 - Improving One Impairment Pt does not have an appropriate home exercise program Short Term Goal (STG) Pt to be independent and compliant with an appropriate HEP STG Duration Met Assessment Summary Assessment Pt making good progress overall, still shows some decreased ROM, continues to experience increased tone in cervical paraspinals, upper traps, and scalenes, however is much more mobile and is experiencing less pain than she was at initial evaluation. Continued skilled PT should help return to full ROM and decrease symptoms. Physical Therapy Plan Frequency and Duration Frequency of Treatment 2x/Week Duration of Treatment 10 weeks Plan of Care Start Date 06/12/20 Plan of Care End Date 08/21/20 Therapeutic Interventions Therapeutic Interventions Home Exercise Program,Joint Mobilizations,Manual Therapy, Neuromuscular Re-education, Patient/Caregiver Education, Self-Care/Home Management,Soft Tissue Mobilization, Therapeutic Activities, Therapeutic Exercises Modalities Cold Pack/Ice Massage,Electric Stimulation,Hot Packs, Traction- Mechanical, Ultrasound Next Visit Focus/Plan Next Note Type Treatment Note Next Visit Plan Continue per PT POC: ther ex, manual treatments to decrease pain and soft tissue tightness, improve cervical ROM.
--- NOTE | 2020-08-17 11:17 | PT.OTN ---
Current Diagnoses Pain in right shoulder (08/17/20) Stiffness of unspecified joint, not elsewhere classified (08/17/20) Spondylosis without myelopathy or radiculopathy, cervical region (08/17/20) Cervicalgia (08/17/20) Physical Therapy Treatment Note PT-OP-A Visit Information Start: 06/12/20 15:17 Freq: Status: Active Protocol: Document 08/17/20 10:35 DCW (Rec: 08/17/20 11:16 DCW [id number]) Out-Patient Physical Therapy Visit Information Visit Information Visit Type Progress Note Visit Start Time 10:35 Visit Stop Time 11:15 Total Visit Minutes 40 Visit Number 13 Number of GRAIN COMMODITY MANAGER Visits 0 Evaluation Information Evaluation Date 06/12/20 PT-OP-B Current Condition Start: 06/12/20 15:17 Freq: Status: Active Protocol: Document 06/12/20 14:30 DCW (Rec: 06/12/20 15:53 DCW [id number]) Current Condition History of Current Condition Onset Date mid-March Current Complaints Neck and upper back stiffness History of Current Condition Pt is a 54 year old female presenting with a 2.5 month history of neck and back pain following a fall in mid-March. Pt reports that she tried to step up onto a sidewalk, but caught her toe, hopped a few times to try to regain her balance, and then fell and hit her back. Pt reports she messed up my upper back and neck, and she has noticed a grinding in her neck. Pt does note that her neck is getting better, but still gives her pain with lifting laundry and groceries. Pt also reports some right shoulder pain with some positions and occasionally when lifting. Prior Treatments and Tests Prior PT treatment of low back Cervical X-ray: IMPRESSION: Mild degenerative disc disease in lower cervical spine. No significant bony foraminal stenosis. No fracture or dislocation. Per: Dionisio Naik on 04/20/2020. Lumbar x-ray: IMPRESSION: Multilevel lumbar disc degeneration, grossly unchanged. Grade 1 anterolisthesis of L4 on L5 as before. Per Ruby Kimbrough on 05/11/2020. Fluoroscopically guided, contrast-controlled bilateral L4, L5 and S1 medial branch blocks with 0.5cc of 0.5% Marcaine on 06/01/[address] Coronel PT-OP-C Subjective Start: 06/12/20 15:17 Freq: Status: Active Protocol: Document 08/17/20 10:35 DCW (Rec: 08/17/20 11:16 DCW [id number]) OP-PT Subjective Patient Comments Patient Comments Pt notes that although she still frequently gets stiffness and pain in her neck , it is much better than it was when she began PT two months ago. Also admits that she got a hole in her air mattress last night, so she slept very crooked. PT-OP-F Manual Assessment Start: 06/12/20 15:17 Freq: Status: Active Protocol: Document 08/17/20 10:35 DCW (Rec: 08/17/20 10:49 DCW [id number]) Manual Assessments Soft Tissue Assessment Soft Tissue Mobility Assessment Moderate Tone, tenderness to palpation 1/4: Complaint of pain; B suboccipitals, B Rhomboids, B Scalenes, B Upper Trap Joint Mobility Assessment Joint Mobility Assessment Mild hypomobility of cervical spine during joint mobilization PT-OP-K Range of Motion Start: 06/12/20 15:17 Freq: Status: Active Protocol: Document 08/17/20 10:35 DCW (Rec: 08/17/20 10:49 DCW [id number]) Cervical Spine Range of Motion Cervical Spine Active Degrees Testing Position Sitting Flexion 54 Extension 45 Rotation Left 61 Rotation Right 59 Lateral Flexion Left 28 Lateral Flexion Right 35 ROM Limitations Soft Tissue Tightness,Muscle Tone PT-OP-L Special Tests Start: 06/12/20 15:17 Freq: Status: Active Protocol: Document 08/17/20 10:35 DCW (Rec: 08/17/20 10:49 DCW [id number]) Special Tests Cervical Spine Special Tests Spurling's Test Test Results Negative Passive Neck Flexion Test Results Negative Slump Test Results Negative Foraminal Compression Test Results Negative PT-OP-M Strength Start: 06/12/20 15:17 Freq: Status: Active Protocol: Document 08/17/20 10:35 DCW (Rec: 08/17/20 10:49 DCW [id number]) Cervical Spine Strength Cervical Spine Manual Muscle Testing Testing Position Sitting Flexion (C1-2) 4+ Good+ Extension 4+ Good+ Rotation Left 4+ Good+ Rotation Right 4+ Good+ Lateral Flexion Left (C3) 4+ Good+ Lateral Flexion Right (C3) 4+ Good+ PT-OP-Q Treatments Start: 06/12/20 15:17 Freq: Status: Active Protocol: Document 08/17/20 10:35 DCW (Rec: 08/17/20 11:16 DCW [id number]) Therapeutic Exercises Standing Exercises snow saritha Standing Exercise Name back to wall Resistance AROM Reps/Minutes x5 Comments wall posture with focus on reducing T/L extension with OH movement resisted rows Standing Exercise Name resisted rows Side bilateral Resistance Lv 2 Equipment Used TB Reps/Minutes 12 x 2 Comments cues for chin retraction, scap stab resisted GH extension Standing Exercise Name resisted GH extension Side bilateral Resistance Lv 2 Equipment Used TB Reps/Minutes 15 x 2 Comments cues for chin retraction, scap stab Manual Therapy Treatment Soft Tissue Mobilization 2 Body Location B Upper Trap Mobilization Type Strumming,Sustained Pressure Intensity/Depth Moderate Body Position Supine 1 Body Location Suboccipitals & cervical paraspinals Mobilization Type Strumming,Sustained Pressure Intensity/Depth Moderate Body Position Supine Comments with cervical distraction Joint Mobilizations 1 Joint C4-7 Direction P->A Grade III Body Position Supine Manual Traction c/s Details gr III Body Position Hooklying Other Other Manual Treatments MMT, ROM, Special testing PT-OP-R Modalities Start: 06/12/20 15:17 Freq: Status: Active Protocol: Document 07/19/20 07:30 AMB (Rec: 07/19/20 08:25 AMB [id number]) Hot Pack/Cold Pack Treatment Hot Pack Location t spine Patient Position Prone Patient Tolerance Good PT-OP-T Assessment and Plan Start: 06/12/20 15:17 Freq: Status: Active Protocol: Document 08/17/20 10:35 DCW (Rec: 08/17/20 11:16 DCW [id number]) Physical Therapy Assessment Goals Three Impairment Severe (R Upper Trap, Scalenes , Levator) and Mod tone in neck musculature Senior Care Goal (LTG) Pt to present with mild tone and tenderness to palpation 10/16: complaint of pain in bilateral UT, Scalenes, Rhomboids, and levators LTG Duration 10/17/20 - Improving Two Impairment Limited cervical ROM (35? flexion, 36? L Rotation) Senior Care Goal (LTG) Pt to exhibit improved cervical AROM to 50? flexion and 55? B Rotation to improve ability to turn and look to her side without increased pain LTG Duration 10/17/20 - Improving One Impairment Pt does not have an appropriate home exercise program Short Term Goal (STG) Pt to be independent and compliant with an appropriate HEP STG Duration Met Assessment Summary Assessment Pt making good progress overall, still shows some decreased ROM, continues to experience increased tone in cervical paraspinals, upper traps, and scalenes, however is much more mobile and is experiencing less pain than she was at initial evaluation. Continued skilled PT should help return to full ROM and decrease symptoms. Physical Therapy Plan Frequency and Duration Frequency of Treatment 2x/Week Duration of Treatment Two months Plan of Care Start Date 08/17/20 Plan of Care End Date 10/17/20 Therapeutic Interventions Therapeutic Interventions Home Exercise Program,Joint Mobilizations,Manual Therapy, Neuromuscular Re-education, Patient/Caregiver Education, Self-Care/Home Management,Soft Tissue Mobilization, Therapeutic Activities, Therapeutic Exercises Modalities Cold Pack/Ice Massage,Electric Stimulation,Hot Packs, Traction- Mechanical, Ultrasound Next Visit Focus/Plan Next Note Type Treatment Note Next Visit Plan Continue per PT POC: ther ex, manual treatments to decrease pain and soft tissue tightness, improve cervical ROM.
--- NOTE | 2020-08-17 11:18 | PT.OPPOC ---
Physical, Occupational & Speech Therapy At [facility] Current Diagnoses Pain in right shoulder (08/17/20) Stiffness of unspecified joint, not elsewhere classified (08/17/20) Spondylosis without myelopathy or radiculopathy, cervical region (08/17/20) Cervicalgia (08/17/20) Visit Care Team Role Provider Type Rustam Yates MD Attending Provider Physician Primary Care Provider Referring Provider Specialty: Internal Medicine Address: [address] [place] [address], [address], [facility] Email: [email or web address] Plan Of Care PT-OP-T Assessment and Plan Start: 06/12/20 15:17 Freq: Status: Active Protocol: Document 08/17/20 10:35 DCW (Rec: 08/17/20 11:16 DCW [id number]) Physical Therapy Assessment Goals Three Impairment Severe (R Upper Trap, Scalenes , Levator) and Mod tone in neck musculature Intermediate Designer Goal (LTG) Pt to present with mild tone and tenderness to palpation 1/ 4: complaint of pain in bilateral UT, Scalenes, Rhomboids, and levators LTG Duration 10/17/20 - Improving Two Impairment Limited cervical ROM (35? flexion, 36? L Rotation) Care Home Goal (LTG) Pt to exhibit improved cervical AROM to 50? flexion and 55? B Rotation to improve ability to turn and look to her side without increased pain LTG Duration 10/17/20 - Improving One Impairment Pt does not have an appropriate home exercise program Short Term Goal (STG) Pt to be independent and compliant with an appropriate HEP STG Duration Met Assessment Summary Assessment Pt making good progress overall, still shows some decreased ROM, continues to experience increased tone in cervical paraspinals, upper traps, and scalenes, however is much more mobile and is experiencing less pain than she was at initial evaluation. Continued skilled PT should help return to full ROM and decrease symptoms. Physical Therapy Plan Frequency and Duration Frequency of Treatment 2x/Week Duration of Treatment Two months Plan of Care Start Date 08/17/20 Plan of Care End Date 10/17/20 Therapeutic Interventions Therapeutic Interventions Home Exercise Program,Joint Mobilizations,Manual Therapy, Neuromuscular Re-education, Patient/Caregiver Education, Self-Care/Home Management,Soft Tissue Mobilization, Therapeutic Activities, Therapeutic Exercises Modalities Cold Pack/Ice Massage,Electric Stimulation,Hot Packs, Traction- Mechanical, Ultrasound Next Visit Focus/Plan Next Note Type Treatment Note Next Visit Plan Continue per PT POC: ther ex, manual treatments to decrease pain and soft tissue tightness, improve cervical ROM. Plan of Care Dates Plan of Care Start Date 08/17/20 Plan of Care End Date 10/17/20 Electronically Signed by: Grey Bhatia, PT 08/17/20 1723 Please Sign and Return: I have reviewed this Plan of Care and certify that the skilled therapy services above are required to meet the patient?s needs. Physician Signature Date Printed Name and Credentials Clinical Instructor Signature Printed Name and Credentials
--- NOTE | 2020-08-21 08:15 | PT.OTN ---
Current Diagnoses Pain in right shoulder (08/21/20) Stiffness of unspecified joint, not elsewhere classified (08/21/20) Spondylosis without myelopathy or radiculopathy, cervical region (08/21/20) Cervicalgia (08/21/20) Physical Therapy Treatment Note PT-OP-A Visit Information Start: 06/12/20 15:17 Freq: Status: Active Protocol: Document 08/21/20 07:30 SP (Rec: 08/21/20 08:19 SP [id number]) Out-Patient Physical Therapy Visit Information Visit Information Visit Type Treatment Note Visit Start Time 07:30 Visit Stop Time 08:15 Total Visit Minutes 45 Visit Number 14 Number of TECHNICAL ENGINEER Visits 1 PT-OP-B Current Condition Start: 06/12/20 15:17 Freq: Status: Active Protocol: Document 06/12/20 14:30 DCW (Rec: 06/12/20 15:53 DCW [id number]) Current Condition History of Current Condition Onset Date mid-March Current Complaints Neck and upper back stiffness History of Current Condition Pt is a 54 year old female presenting with a 2.5 month history of neck and back pain following a fall in mid-March. Pt reports that she tried to step up onto a sidewalk, but caught her toe, hopped a few times to try to regain her balance, and then fell and hit her back. Pt reports she messed up my upper back and neck, and she has noticed a grinding in her neck. Pt does note that her neck is getting better, but still gives her pain with lifting laundry and groceries. Pt also reports some right shoulder pain with some positions and occasionally when lifting. Prior Treatments and Tests Prior PT treatment of low back Cervical X-ray: IMPRESSION: Mild degenerative disc disease in lower cervical spine. No significant bony foraminal stenosis. No fracture or dislocation. Per: Dionisio Naik on 04/20/2020. Lumbar x-ray: IMPRESSION: Multilevel lumbar disc degeneration, grossly unchanged. Grade 1 anterolisthesis of L4 on L5 as before. Per Ruby Kimbrough on 05/11/2020. Fluoroscopically guided, contrast-controlled bilateral L4, L5 and S1 medial branch blocks with 0.5cc of 0.5% Marcaine on 06/01/[address] Coronel PT-OP-C Subjective Start: 06/12/20 15:17 Freq: Status: Active Protocol: Document 08/21/20 07:30 SP (Rec: 08/21/20 08:19 SP [id number]) OP-PT Subjective Patient Comments Patient Comments Pt reported my neck, R shld are ok today, it's my low back and lateral R mid ribcage having trouble. I try pack my groceries myself due to staff tend to pack them to heavy and it bothers my R shld. I have been noticing that I tend to stand on my L LE than R and my crocs are slightly worn so trying stand even so see if can level shoes out. PT-OP-F Manual Assessment Start: 06/12/20 15:17 Freq: Status: Active Protocol: Document 08/17/20 10:35 DCW (Rec: 08/17/20 10:49 DCW [id number]) Manual Assessments Soft Tissue Assessment Soft Tissue Mobility Assessment Moderate Tone, tenderness to palpation /: Complaint of pain; B suboccipitals, B Rhomboids, B Scalenes, B Upper Trap Joint Mobility Assessment Joint Mobility Assessment Mild hypomobility of cervical spine during joint mobilization PT-OP-K Range of Motion Start: 06/12/20 15:17 Freq: Status: Active Protocol: Document 08/17/20 10:35 DCW (Rec: 08/17/20 10:49 DCW [id number]) Cervical Spine Range of Motion Cervical Spine Active Degrees Testing Position Sitting Flexion 54 Extension 45 Rotation Left 61 Rotation Right 59 Lateral Flexion Left 28 Lateral Flexion Right 35 ROM Limitations Soft Tissue Tightness,Muscle Tone PT-OP-L Special Tests Start: 06/12/20 15:17 Freq: Status: Active Protocol: Document 08/17/20 10:35 DCW (Rec: 08/17/20 10:49 DCW [id number]) Special Tests Cervical Spine Special Tests Spurling's Test Test Results Negative Passive Neck Flexion Test Results Negative Slump Test Results Negative Foraminal Compression Test Results Negative PT-OP-M Strength Start: 06/12/20 15:17 Freq: Status: Active Protocol: Document 08/17/20 10:35 DCW (Rec: 08/17/20 10:49 DCW [id number]) Cervical Spine Strength Cervical Spine Manual Muscle Testing Testing Position Sitting Flexion (C1-2) 4+ Good+ Extension 4+ Good+ Rotation Left 4+ Good+ Rotation Right 4+ Good+ Lateral Flexion Left (C3) 4+ Good+ Lateral Flexion Right (C3) 4+ Good+ PT-OP-Q Treatments Start: 06/12/20 15:17 Freq: Status: Active Protocol: Document 08/21/20 07:30 SP (Rec: 08/21/20 08:19 SP [id number]) Therapeutic Exercises Supine Exercises pec, snow angle stretch w/ noodle/ foam roller Equipment Used noodle/ foam roller Reps/Minutes 6 min total Sidelying Exercises Open book Side bilateral Reps/Minutes 10 reps Comments good form head with TS rotation Sitting Exercises Pulleys Sitting Exercise Name FF, ABD warm up Reps/Minutes 2x10 both directions seated lumbar flexion Sitting Exercise Name seated lumbar flexion and sidebend stretch Comments forward x 2 and each side x 1 hold 30 each Standing Exercises snow saritha Standing Exercise Name back to wall Resistance AROM Reps/Minutes x5 Comments wall posture with focus on reducing T/L extension with OH movement resisted rows Standing Exercise Name resisted rows Side bilateral Resistance Lv 3 Equipment Used TB, Reps/Minutes 12 x 2 Comments cues for chin retraction, scap stab resisted GH extension Standing Exercise Name resisted GH extension Side bilateral Resistance Lv 2 Equipment Used TB Reps/Minutes 15 x 2 Comments cues for chin retraction, scap stab Manual Therapy Treatment Soft Tissue Mobilization R paraspinals, lats, intercostals Mobilization Type Cross-Friction,Strumming Intensity/Depth Moderate Body Position 8 min PT-OP-R Modalities Start: 06/12/20 15:17 Freq: Status: Active Protocol: Document 07/19/20 07:30 AMB (Rec: 07/19/20 08:25 AMB [id number]) Hot Pack/Cold Pack Treatment Hot Pack Location t spine Patient Position Prone Patient Tolerance Good PT-OP-T Assessment and Plan Start: 06/12/20 15:17 Freq: Status: Active Protocol: Document 08/21/20 07:30 SP (Rec: 08/21/20 08:19 SP [id number]) Physical Therapy Assessment Goals Three Impairment Severe (R Upper Trap, Scalenes , Levator) and Mod tone in neck musculature Mcfp Goal (LTG) Pt to present with mild tone and tenderness to palpation 1/ 4: complaint of pain in bilateral UT, Scalenes, Rhomboids, and levators LTG Duration 10/17/20 - Improving Two Impairment Limited cervical ROM (35? flexion, 36? L Rotation) Engraver Steel Plate Goal (LTG) Pt to exhibit improved cervical AROM to 50? flexion and 55? B Rotation to improve ability to turn and look to her side without increased pain LTG Duration 10/17/20 - Improving One Impairment Pt does not have an appropriate home exercise program Short Term Goal (STG) Pt to be independent and compliant with an appropriate HEP STG Duration Met Assessment Summary Assessment Pt requiring occasional cuing for scap and postural stabilization during resisted rows with improvement and ableto increase resistance in rows today. Pt had good response to pec stretch/snow saritha and open book stretching , decreased tightness and discomfort in R lateral low/ mid back. Encouraged to continue at home. Manual STMs and seated stretching decreased pain from 7/10 arrived to 3/10 leaving. Physical Therapy Plan Frequency and Duration Frequency of Treatment 2x/Week Duration of Treatment Two months Plan of Care Start Date 08/17/20 Plan of Care End Date 10/17/20 Therapeutic Interventions Therapeutic Interventions Home Exercise Program,Joint Mobilizations,Manual Therapy, Neuromuscular Re-education, Patient/Caregiver Education, Self-Care/Home Management,Soft Tissue Mobilization, Therapeutic Activities, Therapeutic Exercises Modalities Cold Pack/Ice Massage,Electric Stimulation,Hot Packs, Traction- Mechanical, Ultrasound Next Visit Focus/Plan Next Note Type Treatment Note Next Visit Plan Continue per PT POC: ther ex, manual treatments to decrease pain and soft tissue tightness, improve cervical ROM.
--- NOTE | 2020-08-24 08:15 | PT.OTN ---
Current Diagnoses Pain in right shoulder (08/24/20) Stiffness of unspecified joint, not elsewhere classified (08/24/20) Spondylosis without myelopathy or radiculopathy, cervical region (08/24/20) Cervicalgia (08/24/20) Physical Therapy Treatment Note PT-OP-A Visit Information Start: 06/12/20 15:17 Freq: Status: Active Protocol: Document 08/24/20 07:33 SP (Rec: 08/24/20 08:18 SP [id number]) Out-Patient Physical Therapy Visit Information Visit Information Visit Type Treatment Note Visit Start Time 07:33 Visit Stop Time 08:15 Total Visit Minutes 42 Visit Number 15 Number of MOBILE PARAMEDICAL EXAMINER Visits 2 PT-OP-B Current Condition Start: 06/12/20 15:17 Freq: Status: Active Protocol: Document 06/12/20 14:30 DCW (Rec: 06/12/20 15:53 DCW [id number]) Current Condition History of Current Condition Onset Date mid-March Current Complaints Neck and upper back stiffness History of Current Condition Pt is a 54 year old female presenting with a 2.5 month history of neck and back pain following a fall in mid-March. Pt reports that she tried to step up onto a sidewalk, but caught her toe, hopped a few times to try to regain her balance, and then fell and hit her back. Pt reports she messed up my upper back and neck, and she has noticed a grinding in her neck. Pt does note that her neck is getting better, but still gives her pain with lifting laundry and groceries. Pt also reports some right shoulder pain with some positions and occasionally when lifting. Prior Treatments and Tests Prior PT treatment of low back Cervical X-ray: IMPRESSION: Mild degenerative disc disease in lower cervical spine. No significant bony foraminal stenosis. No fracture or dislocation. Per: Dionisio Naik on 04/20/2020. Lumbar x-ray: IMPRESSION: Multilevel lumbar disc degeneration, grossly unchanged. Grade 1 anterolisthesis of L4 on L5 as before. Per Ruby Kimbrough on 05/11/2020. Fluoroscopically guided, contrast-controlled bilateral L4, L5 and S1 medial branch blocks with 0.5cc of 0.5% Marcaine on 06/01/[address] Coronel PT-OP-C Subjective Start: 06/12/20 15:17 Freq: Status: Active Protocol: Document 08/24/20 07:33 SP (Rec: 08/24/20 08:18 SP [id number]) OP-PT Subjective Patient Comments Patient Comments Pt reported lateral ribcage pain went away after last tx, purchased a new bed and has made a big difference in her pain complaints. PT-OP-F Manual Assessment Start: 06/12/20 15:17 Freq: Status: Active Protocol: Document 08/17/20 10:35 DCW (Rec: 08/17/20 10:49 DCW [id number]) Manual Assessments Soft Tissue Assessment Soft Tissue Mobility Assessment Moderate Tone, tenderness to palpation /: Complaint of pain; B suboccipitals, B Rhomboids, B Scalenes, B Upper Trap Joint Mobility Assessment Joint Mobility Assessment Mild hypomobility of cervical spine during joint mobilization PT-OP-K Range of Motion Start: 06/12/20 15:17 Freq: Status: Active Protocol: Document 08/17/20 10:35 DCW (Rec: 08/17/20 10:49 DCW [id number]) Cervical Spine Range of Motion Cervical Spine Active Degrees Testing Position Sitting Flexion 54 Extension 45 Rotation Left 61 Rotation Right 59 Lateral Flexion Left 28 Lateral Flexion Right 35 ROM Limitations Soft Tissue Tightness,Muscle Tone PT-OP-L Special Tests Start: 06/12/20 15:17 Freq: Status: Active Protocol: Document 08/17/20 10:35 DCW (Rec: 08/17/20 10:49 DCW [id number]) Special Tests Cervical Spine Special Tests Spurling's Test Test Results Negative Passive Neck Flexion Test Results Negative Slump Test Results Negative Foraminal Compression Test Results Negative PT-OP-M Strength Start: 06/12/20 15:17 Freq: Status: Active Protocol: Document 08/17/20 10:35 DCW (Rec: 08/17/20 10:49 DCW [id number]) Cervical Spine Strength Cervical Spine Manual Muscle Testing Testing Position Sitting Flexion (C1-2) 4+ Good+ Extension 4+ Good+ Rotation Left 4+ Good+ Rotation Right 4+ Good+ Lateral Flexion Left (C3) 4+ Good+ Lateral Flexion Right (C3) 4+ Good+ PT-OP-Q Treatments Start: 06/12/20 15:17 Freq: Status: Active Protocol: Document 08/24/20 07:33 SP (Rec: 08/24/20 08:18 SP [id number]) Cardio Equipment Upper Body Ergometer (UBE) Duration (Minutes) 6 RPM 46 Seat Position 13 Height 2 Other resistance 60, back pad and foot blocks front rests Therapeutic Exercises Supine Exercises pec, snow angle stretch w/ noodle/ foam roller Supine Exercise Name noodle on table Equipment Used noodle/ foam roller Reps/Minutes 2 min Sidelying Exercises Open book Side bilateral Reps/Minutes 10 reps Comments good form head with TS rotation Standing Exercises racquetball self STMs Standing Exercise Name interscap, UT at wall Equipment Used racquetball, theracane (MWM) Reps/Minutes 2 min Comments review for HEP and use of theracane Shld scaption DB Side bilateral Resistance 2# DB alternating Equipment Used mirror Reps/Minutes 10 x2 Comments cued scap stabilization and CS neutural resisted rows Standing Exercise Name resisted rows Side bilateral Resistance Lv 3 Equipment Used TB, Reps/Minutes 12 x 2 Comments cues for chin retraction, scap stab resisted GH extension Standing Exercise Name resisted GH extension Side bilateral Resistance Lv 2 Equipment Used TB Reps/Minutes 15 x 2 Comments cues for chin retraction, scap stab PT-OP-R Modalities Start: 06/12/20 15:17 Freq: Status: Active Protocol: Document 07/19/20 07:30 AMB (Rec: 07/19/20 08:25 AMB [id number]) Hot Pack/Cold Pack Treatment Hot Pack Location t spine Patient Position Prone Patient Tolerance Good PT-OP-T Assessment and Plan Start: 06/12/20 15:17 Freq: Status: Active Protocol: Document 08/24/20 07:33 SP (Rec: 08/24/20 08:18 SP [id number]) Physical Therapy Assessment Goals Three Impairment Severe (R Upper Trap, Scalenes , Levator) and Mod tone in neck musculature Mcc Goal (LTG) Pt to present with mild tone and tenderness to palpation 4: complaint of pain in bilateral UT, Scalenes, Rhomboids, and levators LTG Duration 10/17/20 - Improving Two Impairment Limited cervical ROM (35? flexion, 36? L Rotation) Mcc Goal (LTG) Pt to exhibit improved cervical AROM to 50? flexion and 55? B Rotation to improve ability to turn and look to her side without increased pain LTG Duration 10/17/20 - Improving One Impairment Pt does not have an appropriate home exercise program Short Term Goal (STG) Pt to be independent and compliant with an appropriate HEP STG Duration Met Assessment Summary Assessment Pt responded well to self STMs using ball at wall and theracane with cuing for set up and MWM, used mirror for scap stabilization during added scaption. Incorporated WMW CS or scap mobiltiy during theracane sustained compression with report of decrease tightness . Pt stated I feel more stretched out. Physical Therapy Plan Frequency and Duration Frequency of Treatment 2x/Week Duration of Treatment Two months Plan of Care Start Date 08/17/20 Plan of Care End Date 10/17/20 Therapeutic Interventions Therapeutic Interventions Home Exercise Program,Joint Mobilizations,Manual Therapy, Neuromuscular Re-education, Patient/Caregiver Education, Self-Care/Home Management,Soft Tissue Mobilization, Therapeutic Activities, Therapeutic Exercises Modalities Cold Pack/Ice Massage,Electric Stimulation,Hot Packs, Traction- Mechanical, Ultrasound Next Visit Focus/Plan Next Note Type Treatment Note Next Visit Plan Assess response to last tx: self manual ball/ theracane and HEP review for scap and neck. Continue per PT POC: ther ex, manual treatments to decrease pain and soft tissue tightness, improve cervical ROM.
--- NOTE | 2020-08-28 15:23 | PT.OTN ---
Current Diagnoses Pain in right shoulder (08/28/20) Stiffness of unspecified joint, not elsewhere classified (08/28/20) Spondylosis without myelopathy or radiculopathy, cervical region (08/28/20) Cervicalgia (08/28/20) Physical Therapy Treatment Note PT-OP-A Visit Information Start: 06/12/20 15:17 Freq: Status: Active Protocol: Document 08/28/20 14:37 MA (Rec: 08/28/20 15:21 MA [id number]) Out-Patient Physical Therapy Visit Information Visit Information Visit Type Treatment Note Visit Start Time 14:32 Visit Stop Time 15:13 Total Visit Minutes 41 Visit Number 16 Number of SENIOR ENVIRONMENTAL PRACTICE LEADER Visits 3 PT-OP-B Current Condition Start: 06/12/20 15:17 Freq: Status: Active Protocol: Document 06/12/20 14:30 DCW (Rec: 06/12/20 15:53 DCW [id number]) Current Condition History of Current Condition Onset Date mid-March Current Complaints Neck and upper back stiffness History of Current Condition Pt is a 54 year old female presenting with a 2.5 month history of neck and back pain following a fall in mid-March. Pt reports that she tried to step up onto a sidewalk, but caught her toe, hopped a few times to try to regain her balance, and then fell and hit her back. Pt reports she messed up my upper back and neck, and she has noticed a grinding in her neck. Pt does note that her neck is getting better, but still gives her pain with lifting laundry and groceries. Pt also reports some right shoulder pain with some positions and occasionally when lifting. Prior Treatments and Tests Prior PT treatment of low back Cervical X-ray: IMPRESSION: Mild degenerative disc disease in lower cervical spine. No significant bony foraminal stenosis. No fracture or dislocation. Per: Dionisio Naik on 04/20/2020. Lumbar x-ray: IMPRESSION: Multilevel lumbar disc degeneration, grossly unchanged. Grade 1 anterolisthesis of L4 on L5 as before. Per Ruby Kimbrough on 05/11/2020. Fluoroscopically guided, contrast-controlled bilateral L4, L5 and S1 medial branch blocks with 0.5cc of 0.5% Marcaine on 06/01/[address] Coronel PT-OP-C Subjective Start: 06/12/20 15:17 Freq: Status: Active Protocol: Document 08/28/20 14:37 MA (Rec: 08/28/20 15:21 MA [id number]) OP-PT Subjective Patient Comments Patient Comments Pt had migrane this morning that has since gone away. Yesterday had neck and shd pain but has not had pain today PT-OP-F Manual Assessment Start: 06/12/20 15:17 Freq: Status: Active Protocol: Document 08/17/20 10:35 DCW (Rec: 08/17/20 10:49 DCW [id number]) Manual Assessments Soft Tissue Assessment Soft Tissue Mobility Assessment Moderate Tone, tenderness to palpation /: Complaint of pain; B suboccipitals, B Rhomboids, B Scalenes, B Upper Trap Joint Mobility Assessment Joint Mobility Assessment Mild hypomobility of cervical spine during joint mobilization PT-OP-K Range of Motion Start: 06/12/20 15:17 Freq: Status: Active Protocol: Document 08/17/20 10:35 DCW (Rec: 08/17/20 10:49 DCW [id number]) Cervical Spine Range of Motion Cervical Spine Active Degrees Testing Position Sitting Flexion 54 Extension 45 Rotation Left 61 Rotation Right 59 Lateral Flexion Left 28 Lateral Flexion Right 35 ROM Limitations Soft Tissue Tightness,Muscle Tone PT-OP-L Special Tests Start: 06/12/20 15:17 Freq: Status: Active Protocol: Document 08/17/20 10:35 DCW (Rec: 08/17/20 10:49 DCW [id number]) Special Tests Cervical Spine Special Tests Spurling's Test Test Results Negative Passive Neck Flexion Test Results Negative Slump Test Results Negative Foraminal Compression Test Results Negative PT-OP-M Strength Start: 06/12/20 15:17 Freq: Status: Active Protocol: Document 08/17/20 10:35 DCW (Rec: 08/17/20 10:49 DCW [id number]) Cervical Spine Strength Cervical Spine Manual Muscle Testing Testing Position Sitting Flexion (C1-2) 4+ Good+ Extension 4+ Good+ Rotation Left 4+ Good+ Rotation Right 4+ Good+ Lateral Flexion Left (C3) 4+ Good+ Lateral Flexion Right (C3) 4+ Good+ PT-OP-Q Treatments Start: 06/12/20 15:17 Freq: Status: Active Protocol: Document 08/28/20 14:37 MA (Rec: 08/28/20 15:21 MA [id number]) Cardio Equipment Upper Body Ergometer (UBE) Duration (Minutes) 6 Seat Position 9 Height 2 Other forward/backward Therapeutic Exercises Supine Exercises LTR Side bilateral Reps/Minutes 2 Sidelying Exercises Open book Side bilateral Reps/Minutes 10 reps Comments good form head with TS rotation Standing Exercises Pec Stretch Side bilateral Equipment Used doorway Reps/Minutes 2x30 jonas snow saritha Standing Exercise Name back to wall Resistance AROM Reps/Minutes x5 Comments wall posture with focus on reducing T/L extension with OH movement Manual Therapy Treatment Soft Tissue Mobilization UT Body Location Right UT Mobilization Type Myofascial Release Intensity/Depth Moderate Body Position Hooklying R paraspinals, lats, intercostals Mobilization Type Rolling,Strumming Intensity/Depth Moderate Body Position 8 min Manual Traction c/s Details C/S traction Body Position Hooklying Reps/Duration 2x60 sec PT-OP-R Modalities Start: 06/12/20 15:17 Freq: Status: Active Protocol: Document 07/19/20 07:30 AMB (Rec: 07/19/20 08:25 AMB [id number]) Hot Pack/Cold Pack Treatment Hot Pack Location t spine Patient Position Prone Patient Tolerance Good PT-OP-T Assessment and Plan Start: 06/12/20 15:17 Freq: Status: Active Protocol: Document 08/28/20 14:37 MA (Rec: 08/28/20 15:21 MA [id number]) Physical Therapy Assessment Goals Three Impairment Severe (R Upper Trap, Scalenes , Levator) and Mod tone in neck musculature Sagger Soak Goal (LTG) Pt to present with mild tone and tenderness to palpation 1: complaint of pain in bilateral UT, Scalenes, Rhomboids, and levators LTG Duration 10/17/20 - Improving Two Impairment Limited cervical ROM (35? flexion, 36? L Rotation) Usp Goal (LTG) Pt to exhibit improved cervical AROM to 50? flexion and 55? B Rotation to improve ability to turn and look to her side without increased pain LTG Duration 10/17/20 - Improving One Impairment Pt does not have an appropriate home exercise program Short Term Goal (STG) Pt to be independent and compliant with an appropriate HEP STG Duration Met Assessment Summary Assessment Pt felt neck tension relief after C/S traction. STM to R UT, jonas paraspinals and lats with no c/o pain. Physical Therapy Plan Frequency and Duration Frequency of Treatment 2x/Week Duration of Treatment Two months Plan of Care Start Date 08/17/20 Plan of Care End Date 10/17/20 Therapeutic Interventions Therapeutic Interventions Home Exercise Program,Joint Mobilizations,Manual Therapy, Neuromuscular Re-education, Patient/Caregiver Education, Self-Care/Home Management,Soft Tissue Mobilization, Therapeutic Activities, Therapeutic Exercises Modalities Cold Pack/Ice Massage,Electric Stimulation,Hot Packs, Traction- Mechanical, Ultrasound Next Visit Focus/Plan Next Note Type Treatment Note Next Visit Plan Continue per PT POC: ther ex, manual treatments to decrease pain and soft tissue tightness, improve cervical ROM.
--- NOTE | 2020-09-11 12:07 | PT.OTN ---
Current Diagnoses Pain in right shoulder (09/11/20) Stiffness of unspecified joint, not elsewhere classified (09/11/20) Spondylosis without myelopathy or radiculopathy, cervical region (09/11/20) Cervicalgia (09/11/20) Physical Therapy Treatment Note PT-OP-A Visit Information Start: 06/12/20 15:17 Freq: Status: Active Protocol: Document 09/11/20 11:17 DCW (Rec: 09/11/20 12:06 DCW [id number]) Out-Patient Physical Therapy Visit Information Visit Information Visit Type Treatment Note Visit Start Time 11:17 Visit Stop Time 12:00 Total Visit Minutes 43 Visit Number 17 Number of BULK TANK DRIVER Visits 0 Evaluation Information Evaluation Date 06/12/20 PT-OP-B Current Condition Start: 06/12/20 15:17 Freq: Status: Active Protocol: Document 06/12/20 14:30 DCW (Rec: 06/12/20 15:53 DCW [id number]) Current Condition History of Current Condition Onset Date mid-March Current Complaints Neck and upper back stiffness History of Current Condition Pt is a 54 year old female presenting with a 2.5 month history of neck and back pain following a fall in mid-March. Pt reports that she tried to step up onto a sidewalk, but caught her toe, hopped a few times to try to regain her balance, and then fell and hit her back. Pt reports she messed up my upper back and neck, and she has noticed a grinding in her neck. Pt does note that her neck is getting better, but still gives her pain with lifting laundry and groceries. Pt also reports some right shoulder pain with some positions and occasionally when lifting. Prior Treatments and Tests Prior PT treatment of low back Cervical X-ray: IMPRESSION: Mild degenerative disc disease in lower cervical spine. No significant bony foraminal stenosis. No fracture or dislocation. Per: Dionisio Naik on 04/20/2020. Lumbar x-ray: IMPRESSION: Multilevel lumbar disc degeneration, grossly unchanged. Grade 1 anterolisthesis of L4 on L5 as before. Per Ruby Kimbrough on 05/11/2020. Fluoroscopically guided, contrast-controlled bilateral L4, L5 and S1 medial branch blocks with 0.5cc of 0.5% Marcaine on 06/01/[address] Coronel PT-OP-C Subjective Start: 06/12/20 15:17 Freq: Status: Active Protocol: Document 09/11/20 11:17 DCW (Rec: 09/11/20 12:06 DCW [id number]) OP-PT Subjective Patient Comments Patient Comments I'm doing alright, actually a little better than normal. I finally got a new mattress, so I've been sleeping better. PT-OP-F Manual Assessment Start: 06/12/20 15:17 Freq: Status: Active Protocol: Document 08/17/20 10:35 DCW (Rec: 08/17/20 10:49 DCW [id number]) Manual Assessments Soft Tissue Assessment Soft Tissue Mobility Assessment Moderate Tone, tenderness to palpation 1/: Complaint of pain; B suboccipitals, B Rhomboids, B Scalenes, B Upper Trap Joint Mobility Assessment Joint Mobility Assessment Mild hypomobility of cervical spine during joint mobilization PT-OP-K Range of Motion Start: 06/12/20 15:17 Freq: Status: Active Protocol: Document 08/17/20 10:35 DCW (Rec: 08/17/20 10:49 DCW [id number]) Cervical Spine Range of Motion Cervical Spine Active Degrees Testing Position Sitting Flexion 54 Extension 45 Rotation Left 61 Rotation Right 59 Lateral Flexion Left 28 Lateral Flexion Right 35 ROM Limitations Soft Tissue Tightness,Muscle Tone PT-OP-L Special Tests Start: 06/12/20 15:17 Freq: Status: Active Protocol: Document 08/17/20 10:35 DCW (Rec: 08/17/20 10:49 DCW [id number]) Special Tests Cervical Spine Special Tests Spurling's Test Test Results Negative Passive Neck Flexion Test Results Negative Slump Test Results Negative Foraminal Compression Test Results Negative PT-OP-M Strength Start: 06/12/20 15:17 Freq: Status: Active Protocol: Document 08/17/20 10:35 DCW (Rec: 08/17/20 10:49 DCW [id number]) Cervical Spine Strength Cervical Spine Manual Muscle Testing Testing Position Sitting Flexion (C1-2) 4+ Good+ Extension 4+ Good+ Rotation Left 4+ Good+ Rotation Right 4+ Good+ Lateral Flexion Left (C3) 4+ Good+ Lateral Flexion Right (C3) 4+ Good+ PT-OP-Q Treatments Start: 06/12/20 15:17 Freq: Status: Active Protocol: Document 09/11/20 11:17 DCW (Rec: 09/11/20 12:06 DCW [id number]) Cardio Equipment Upper Body Ergometer (UBE) Duration (Minutes) 5 Seat Position 9 Height 4 Other forward/backward Therapeutic Exercises Supine Exercises pec, snow angle stretch w/ noodle/ foam roller Supine Exercise Name 1/2 foam roll Equipment Used foam roll LTR Side bilateral Reps/Minutes 2 Standing Exercises resisted rows Standing Exercise Name resisted rows Side bilateral Resistance Lv 3 Equipment Used TB, Reps/Minutes 12 x 2 Comments cues for chin retraction, scap stab resisted GH extension Standing Exercise Name resisted GH extension Side bilateral Resistance Lv 2 Equipment Used TB Reps/Minutes 15 x 2 Comments cues for chin retraction, scap stab Manual Therapy Treatment Soft Tissue Mobilization R paraspinals, lats, intercostals Mobilization Type Rolling,Strumming Intensity/Depth Moderate Body Position Hooklying 2 Body Location B Upper Trap Mobilization Type Strumming,Sustained Pressure Intensity/Depth Moderate Body Position Supine 1 Body Location Suboccipitals & cervical paraspinals Mobilization Type Strumming,Sustained Pressure Intensity/Depth Moderate Body Position Supine Comments with cervical distraction Manual Traction c/s Details C/S traction Body Position Hooklying Reps/Duration 2x60 sec PT-OP-R Modalities Start: 06/12/20 15:17 Freq: Status: Active Protocol: Document 07/19/20 07:30 AMB (Rec: 07/19/20 08:25 AMB [id number]) Hot Pack/Cold Pack Treatment Hot Pack Location t spine Patient Position Prone Patient Tolerance Good PT-OP-T Assessment and Plan Start: 06/12/20 15:17 Freq: Status: Active Protocol: Document 09/11/20 11:17 DCW (Rec: 09/11/20 12:06 DCW [id number]) Physical Therapy Assessment Impairments Impairments Functional Mobility,Pain,ROM, Soft Tissue Mobility,Strength, Tone Goals Three Impairment Severe (R Upper Trap, Scalenes , Levator) and Mod tone in neck musculature Edi Architect Goal (LTG) Pt to present with mild tone and tenderness to palpation 10/16: complaint of pain in bilateral UT, Scalenes, Rhomboids, and levators LTG Duration 10/17/20 - Improving Two Impairment Limited cervical ROM (35? flexion, 36? L Rotation) Group Home Goal (LTG) Pt to exhibit improved cervical AROM to 50? flexion and 55? B Rotation to improve ability to turn and look to her side without increased pain LTG Duration 10/17/20 - Improving One Impairment Pt does not have an appropriate home exercise program Short Term Goal (STG) Pt to be independent and compliant with an appropriate HEP STG Duration Met Assessment Summary Assessment Pt felt much better today, admitted to feeling much more relaxed following her treatment. Physical Therapy Plan Frequency and Duration Frequency of Treatment 2x/Week Duration of Treatment Two months Plan of Care Start Date 08/17/20 Plan of Care End Date 10/17/20 Therapeutic Interventions Therapeutic Interventions Home Exercise Program,Joint Mobilizations,Manual Therapy, Neuromuscular Re-education, Patient/Caregiver Education, Self-Care/Home Management,Soft Tissue Mobilization, Therapeutic Activities, Therapeutic Exercises Modalities Cold Pack/Ice Massage,Electric Stimulation,Hot Packs, Traction- Mechanical, Ultrasound Next Visit Focus/Plan Next Note Type Treatment Note Next Visit Plan Continue per PT POC: ther ex, manual treatments to decrease pain and soft tissue tightness, improve cervical ROM.
--- NOTE | 2020-09-15 09:45 | PT.OTN ---
Current Diagnoses Pain in right shoulder (09/15/20) Stiffness of unspecified joint, not elsewhere classified (09/15/20) Spondylosis without myelopathy or radiculopathy, cervical region (09/15/20) Cervicalgia (09/15/20) Physical Therapy Treatment Note PT-OP-A Visit Information Start: 06/12/20 15:17 Freq: Status: Active Protocol: Document 09/15/20 09:00 SP (Rec: 09/15/20 09:53 SP [id number]) Out-Patient Physical Therapy Visit Information Visit Information Visit Type Treatment Note Visit Start Time 09:00 Visit Stop Time 09:45 Total Visit Minutes 45 Visit Number 18 Number of YIELD CLERK Visits 1 PT-OP-B Current Condition Start: 06/12/20 15:17 Freq: Status: Active Protocol: Document 06/12/20 14:30 DCW (Rec: 06/12/20 15:53 DCW [id number]) Current Condition History of Current Condition Onset Date mid-March Current Complaints Neck and upper back stiffness History of Current Condition Pt is a 54 year old female presenting with a 2.5 month history of neck and back pain following a fall in mid-March. Pt reports that she tried to step up onto a sidewalk, but caught her toe, hopped a few times to try to regain her balance, and then fell and hit her back. Pt reports she messed up my upper back and neck, and she has noticed a grinding in her neck. Pt does note that her neck is getting better, but still gives her pain with lifting laundry and groceries. Pt also reports some right shoulder pain with some positions and occasionally when lifting. Prior Treatments and Tests Prior PT treatment of low back Cervical X-ray: IMPRESSION: Mild degenerative disc disease in lower cervical spine. No significant bony foraminal stenosis. No fracture or dislocation. Per: Dionisio Naik on 04/20/2020. Lumbar x-ray: IMPRESSION: Multilevel lumbar disc degeneration, grossly unchanged. Grade 1 anterolisthesis of L4 on L5 as before. Per Ruby Kimbrough on 05/11/2020. Fluoroscopically guided, contrast-controlled bilateral L4, L5 and S1 medial branch blocks with 0.5cc of 0.5% Marcaine on 06/01/[address] Coronel PT-OP-C Subjective Start: 06/12/20 15:17 Freq: Status: Active Protocol: Document 09/15/20 09:00 SP (Rec: 09/15/20 09:53 SP [id number]) OP-PT Subjective Patient Comments Patient Comments Pt reported upper back/ interscapular today 3/10 but past 2 days 8 and R shld unsure what causing past 2 days. PT-OP-F Manual Assessment Start: 06/12/20 15:17 Freq: Status: Active Protocol: Document 08/17/20 10:35 DCW (Rec: 08/17/20 10:49 DCW [id number]) Manual Assessments Soft Tissue Assessment Soft Tissue Mobility Assessment Moderate Tone, tenderness to palpation 10/16: Complaint of pain; B suboccipitals, B Rhomboids, B Scalenes, B Upper Trap Joint Mobility Assessment Joint Mobility Assessment Mild hypomobility of cervical spine during joint mobilization PT-OP-K Range of Motion Start: 06/12/20 15:17 Freq: Status: Active Protocol: Document 08/17/20 10:35 DCW (Rec: 08/17/20 10:49 DCW [id number]) Cervical Spine Range of Motion Cervical Spine Active Degrees Testing Position Sitting Flexion 54 Extension 45 Rotation Left 61 Rotation Right 59 Lateral Flexion Left 28 Lateral Flexion Right 35 ROM Limitations Soft Tissue Tightness,Muscle Tone PT-OP-L Special Tests Start: 06/12/20 15:17 Freq: Status: Active Protocol: Document 08/17/20 10:35 DCW (Rec: 08/17/20 10:49 DCW [id number]) Special Tests Cervical Spine Special Tests Spurling's Test Test Results Negative Passive Neck Flexion Test Results Negative Slump Test Results Negative Foraminal Compression Test Results Negative PT-OP-M Strength Start: 06/12/20 15:17 Freq: Status: Active Protocol: Document 08/17/20 10:35 DCW (Rec: 08/17/20 10:49 DCW [id number]) Cervical Spine Strength Cervical Spine Manual Muscle Testing Testing Position Sitting Flexion (C1-2) 4+ Good+ Extension 4+ Good+ Rotation Left 4+ Good+ Rotation Right 4+ Good+ Lateral Flexion Left (C3) 4+ Good+ Lateral Flexion Right (C3) 4+ Good+ PT-OP-Q Treatments Start: 06/12/20 15:17 Freq: Status: Active Protocol: Document 09/15/20 09:00 SP (Rec: 09/15/20 09:53 SP [id number]) Therapeutic Exercises Supine Exercises supine FF, ABD, D2 flex Resistance TB #3 Equipment Used 1/2 foam roller Reps/Minutes x10 each pec, snow angle stretch w/ noodle/ foam roller Supine Exercise Name 1/2 foam roll Equipment Used foam roll Reps/Minutes 2 min periscapular self mob Supine Exercise Name Horizontal T10, L ES/ paraspinal at T10 region MWM UE FF/ ABD Equipment Used racquetball, noodlehorizontal Reps/Minutes 3 min Comments with active GH rotation, flexion, abduction, and scapular protraction Sitting Exercises Pulleys Sitting Exercise Name FF, ABD warm up with light self resistance Reps/Minutes 2x30 both directions Comments FROM Standing Exercises Shld scaption DB Side bilateral Resistance TB #2 alternating Equipment Used mirror Reps/Minutes 12 x2 Comments cued upright posture, scap stabilization and CS neutural shld flexion/ abd TB Standing Exercise Name HABD w/ humeral ER Resistance Tb #2 Reps/Minutes 2x10 Comments cued scap stab, PPT, elevate ribcage resisted rows Standing Exercise Name resisted rows Side bilateral Resistance Lv 3 Equipment Used TB, Reps/Minutes 15 x 2 Comments occasional cues for PPT, chin retraction, scap stab resisted GH extension Standing Exercise Name resisted GH extension Side bilateral Resistance Lv 2 Equipment Used TB Reps/Minutes 15 x 2 Comments occasional cues for PPT, chin retraction, scap stab PT-OP-R Modalities Start: 06/12/20 15:17 Freq: Status: Active Protocol: Document 07/19/20 07:30 AMB (Rec: 07/19/20 08:25 AMB [id number]) Hot Pack/Cold Pack Treatment Hot Pack Location t spine Patient Position Prone Patient Tolerance Good PT-OP-T Assessment and Plan Start: 06/12/20 15:17 Freq: Status: Active Protocol: Document 09/15/20 09:00 SP (Rec: 09/15/20 09:53 SP [id number]) Physical Therapy Assessment Goals Three Impairment Severe (R Upper Trap, Scalenes , Levator) and Mod tone in neck musculature Fdc Goal (LTG) Pt to present with mild tone and tenderness to palpation 10/16: complaint of pain in bilateral UT, Scalenes, Rhomboids, and levators LTG Duration 10/17/20 - Improving Two Impairment Limited cervical ROM (35? flexion, 36? L Rotation) Salvage Clerk Goal (LTG) Pt to exhibit improved cervical AROM to 50? flexion and 55? B Rotation to improve ability to turn and look to her side without increased pain LTG Duration 10/17/20 - Improving One Impairment Pt does not have an appropriate home exercise program Short Term Goal (STG) Pt to be independent and compliant with an appropriate HEP STG Duration Met Assessment Summary Assessment Pt reported feels much better and decrease in tightness, more stretched out end of t x over L TS, interscapular, Middle Trap. Pt continues need cuing and mirror for scap stab. Physical Therapy Plan Frequency and Duration Frequency of Treatment 2x/Week Duration of Treatment Two months Plan of Care Start Date 08/17/20 Plan of Care End Date 10/17/20 Therapeutic Interventions Therapeutic Interventions Home Exercise Program,Joint Mobilizations,Manual Therapy, Neuromuscular Re-education, Patient/Caregiver Education, Self-Care/Home Management,Soft Tissue Mobilization, Therapeutic Activities, Therapeutic Exercises Modalities Cold Pack/Ice Massage,Electric Stimulation,Hot Packs, Traction- Mechanical, Ultrasound Next Visit Focus/Plan Next Note Type Treatment Note Next Visit Plan Continue per PT POC: ther ex, manual treatments to decrease pain and soft tissue tightness, improve cervical ROM.
--- NOTE | 2020-09-19 08:17 | PT.OTN ---
Current Diagnoses Pain in right shoulder (09/19/20) Stiffness of unspecified joint, not elsewhere classified (09/19/20) Spondylosis without myelopathy or radiculopathy, cervical region (09/19/20) Cervicalgia (09/19/20) Physical Therapy Treatment Note PT-OP-A Visit Information Start: 06/12/20 15:17 Freq: Status: Active Protocol: Document 09/19/20 07:36 SP (Rec: 09/19/20 09:16 SP [id number]) Out-Patient Physical Therapy Visit Information Visit Information Visit Type Treatment Note Visit Note pt 6 min late. Visit Start Time 07:36 Visit Stop Time 08:17 Total Visit Minutes 41 Visit Number 19 Number of GLASS FINISHER Visits 2 PT-OP-B Current Condition Start: 06/12/20 15:17 Freq: Status: Active Protocol: Document 06/12/20 14:30 DCW (Rec: 06/12/20 15:53 DCW [id number]) Current Condition History of Current Condition Onset Date mid-March Current Complaints Neck and upper back stiffness History of Current Condition Pt is a 54 year old female presenting with a 2.5 month history of neck and back pain following a fall in mid-March. Pt reports that she tried to step up onto a sidewalk, but caught her toe, hopped a few times to try to regain her balance, and then fell and hit her back. Pt reports she messed up my upper back and neck, and she has noticed a grinding in her neck. Pt does note that her neck is getting better, but still gives her pain with lifting laundry and groceries. Pt also reports some right shoulder pain with some positions and occasionally when lifting. Prior Treatments and Tests Prior PT treatment of low back Cervical X-ray: IMPRESSION: Mild degenerative disc disease in lower cervical spine. No significant bony foraminal stenosis. No fracture or dislocation. Per: Dionisio Naik on 04/20/2020. Lumbar x-ray: IMPRESSION: Multilevel lumbar disc degeneration, grossly unchanged. Grade 1 anterolisthesis of L4 on L5 as before. Per Ruby Kimbrough on 05/11/2020. Fluoroscopically guided, contrast-controlled bilateral L4, L5 and S1 medial branch blocks with 0.5cc of 0.5% Marcaine on 06/01/[address] Coronel PT-OP-C Subjective Start: 06/12/20 15:17 Freq: Status: Active Protocol: Document 09/19/20 07:36 SP (Rec: 09/19/20 09:16 SP [id number]) OP-PT Subjective Patient Comments Patient Comments Pt reported I had to get on hands and knees to clean oven and remove discovered creator before started cooking. Trouble with elbow lately when slight flexion and supination and felt a pop in C6-7 area discomforting but then feels better. Also mid back discomforting and stiff more lately. PT-OP-F Manual Assessment Start: 06/12/20 15:17 Freq: Status: Active Protocol: Document 08/17/20 10:35 DCW (Rec: 08/17/20 10:49 DCW [id number]) Manual Assessments Soft Tissue Assessment Soft Tissue Mobility Assessment Moderate Tone, tenderness to palpation 1/4: Complaint of pain; B suboccipitals, B Rhomboids, B Scalenes, B Upper Trap Joint Mobility Assessment Joint Mobility Assessment Mild hypomobility of cervical spine during joint mobilization PT-OP-K Range of Motion Start: 06/12/20 15:17 Freq: Status: Active Protocol: Document 08/17/20 10:35 DCW (Rec: 08/17/20 10:49 DCW [id number]) Cervical Spine Range of Motion Cervical Spine Active Degrees Testing Position Sitting Flexion 54 Extension 45 Rotation Left 61 Rotation Right 59 Lateral Flexion Left 28 Lateral Flexion Right 35 ROM Limitations Soft Tissue Tightness,Muscle Tone PT-OP-L Special Tests Start: 06/12/20 15:17 Freq: Status: Active Protocol: Document 08/17/20 10:35 DCW (Rec: 08/17/20 10:49 DCW [id number]) Special Tests Cervical Spine Special Tests Spurling's Test Test Results Negative Passive Neck Flexion Test Results Negative Slump Test Results Negative Foraminal Compression Test Results Negative PT-OP-M Strength Start: 06/12/20 15:17 Freq: Status: Active Protocol: Document 08/17/20 10:35 DCW (Rec: 08/17/20 10:49 DCW [id number]) Cervical Spine Strength Cervical Spine Manual Muscle Testing Testing Position Sitting Flexion (C1-2) 4+ Good+ Extension 4+ Good+ Rotation Left 4+ Good+ Rotation Right 4+ Good+ Lateral Flexion Left (C3) 4+ Good+ Lateral Flexion Right (C3) 4+ Good+ PT-OP-Q Treatments Start: 06/12/20 15:17 Freq: Status: Active Protocol: Document 09/19/20 07:36 SP (Rec: 09/19/20 09:16 SP [id number]) Cardio Equipment Upper Body Ergometer (UBE) Duration (Minutes) 6 Seat Position 9 Height 4 Other forward/backward 3 min each Therapeutic Exercises Supine Exercises Ts ext over foam roller Supine Exercise Name instruction horizontal TS ext over 1/2 foam roller ( horizontal pos) Resistance AROM Equipment Used 1/2 foam roller Reps/Minutes 1 min working up TS Comments UE cradle head, reps and ext reps to time and tolerance ( try noodle next) Prone Exercises quadruped UE flextion Prone Exercise Name (iniated today, challenged stab so stopped) Side bilateral Reps/Minutes x5 Comments cued CS ext/ neutral chin tuck and scap retr/depress Sidelying Exercises Open book Side bilateral Reps/Minutes 15 reps Comments good form head with TS rotation Standing Exercises TS rotation/thread needle Standing Exercise Name plank at wall Side bilateral Resistance AROM Reps/Minutes x5 each side Comments cued scap depression, normal scapular glide and TS Rotation B, forward hips Manual Therapy Treatment Soft Tissue Mobilization 2 Body Location B Upper Trap Mobilization Type Strumming,Sustained Pressure Intensity/Depth Moderate Body Position Supine 1 Body Location Suboccipitals & cervical paraspinals, suboccipital release Mobilization Type Strumming,Sustained Pressure Intensity/Depth Moderate Body Position Supine Comments with cervical distraction Joint Mobilizations 1 Joint TS Direction P>A Grade II Body Position Prone Comments with exhale Manual Traction c/s Details C/S traction Body Position Hooklying Reps/Duration 2x60 sec PT-OP-R Modalities Start: 06/12/20 15:17 Freq: Status: Active Protocol: Document 07/19/20 07:30 AMB (Rec: 07/19/20 08:25 AMB [id number]) Hot Pack/Cold Pack Treatment Hot Pack Location t spine Patient Position Prone Patient Tolerance Good PT-OP-T Assessment and Plan Start: 06/12/20 15:17 Freq: Status: Active Protocol: Document 09/19/20 07:36 SP (Rec: 12/08/20 09:16 SP [id number]) Physical Therapy Assessment Goals Three Impairment Severe (R Upper Trap, Scalenes , Levator) and Mod tone in neck musculature Flow Trader Goal (LTG) Pt to present with mild tone and tenderness to palpation 10/16: complaint of pain in bilateral UT, Scalenes, Rhomboids, and levators LTG Duration 10/17/20 - Improving Two Impairment Limited cervical ROM (35? flexion, 36? L Rotation) Flow Trader Goal (LTG) Pt to exhibit improved cervical AROM to 50? flexion and 55? B Rotation to improve ability to turn and look to her side without increased pain LTG Duration 10/17/20 - Improving One Impairment Pt does not have an appropriate home exercise program Short Term Goal (STG) Pt to be independent and compliant with an appropriate HEP STG Duration Met Assessment Summary Assessment Pt improved in decreased tightness and increase fluid ROM in CS, TS end of tx. Initiated Thread needle standing at wall with good response positive results. Next tx assess tolerance WB to allow for ADL tasks doing more at home with continued educaiton on flexibilty, ROM and posture to allow for endurance of mobiltiy tasks. Physical Therapy Plan Frequency and Duration Frequency of Treatment 2x/Week Duration of Treatment Two months Plan of Care Start Date 08/17/20 Plan of Care End Date 10/17/20 Therapeutic Interventions Therapeutic Interventions Home Exercise Program,Joint Mobilizations,Manual Therapy, Neuromuscular Re-education, Patient/Caregiver Education, Self-Care/Home Management,Soft Tissue Mobilization, Therapeutic Activities, Therapeutic Exercises Modalities Cold Pack/Ice Massage,Electric Stimulation,Hot Packs, Traction- Mechanical, Ultrasound Next Visit Focus/Plan Next Note Type Treatment Note Next Visit Plan Continue per PT POC: ther ex, manual treatments to decrease pain and soft tissue tightness, improve cervical ROM.
--- NOTE | 2020-09-22 10:11 | PT.OTN ---
Current Diagnoses Pain in right shoulder (09/22/20) Stiffness of unspecified joint, not elsewhere classified (09/22/20) Spondylosis without myelopathy or radiculopathy, cervical region (09/22/20) Cervicalgia (09/22/20) Physical Therapy Treatment Note PT-OP-A Visit Information Start: 06/12/20 15:17 Freq: Status: Active Protocol: Document 09/22/20 09:00 AMB (Rec: 09/22/20 10:11 AMB [id number]) Out-Patient Physical Therapy Visit Information Visit Information Visit Start Time 09:00 Visit Stop Time 09:44 Total Visit Minutes 44 Visit Number 20 Number of WINDING DEPARTMENT SUPERVISOR Visits 0 PT-OP-B Current Condition Start: 06/12/20 15:17 Freq: Status: Active Protocol: Document 06/12/20 14:30 DCW (Rec: 06/12/20 15:53 DCW [id number]) Current Condition History of Current Condition Onset Date mid-March Current Complaints Neck and upper back stiffness History of Current Condition Pt is a 54 year old female presenting with a 2.5 month history of neck and back pain following a fall in mid-March. Pt reports that she tried to step up onto a sidewalk, but caught her toe, hopped a few times to try to regain her balance, and then fell and hit her back. Pt reports she messed up my upper back and neck, and she has noticed a grinding in her neck. Pt does note that her neck is getting better, but still gives her pain with lifting laundry and groceries. Pt also reports some right shoulder pain with some positions and occasionally when lifting. Prior Treatments and Tests Prior PT treatment of low back Cervical X-ray: IMPRESSION: Mild degenerative disc disease in lower cervical spine. No significant bony foraminal stenosis. No fracture or dislocation. Per: Dionisio Naik on 04/20/2020. Lumbar x-ray: IMPRESSION: Multilevel lumbar disc degeneration, grossly unchanged. Grade 1 anterolisthesis of L4 on L5 as before. Per Ruby Kimbrough on 05/11/2020. Fluoroscopically guided, contrast-controlled bilateral L4, L5 and S1 medial branch blocks with 0.5cc of 0.5% Marcaine on 06/01/[address] Coronel PT-OP-C Subjective Start: 06/12/20 15:17 Freq: Status: Active Protocol: Document 09/22/20 09:00 AMB (Rec: 09/22/20 10:11 AMB [id number]) OP-PT Subjective Patient Comments Patient Comments Pt still recovering from rat in oven and scrubbing oven. PT-OP-F Manual Assessment Start: 06/12/20 15:17 Freq: Status: Active Protocol: Document 08/17/20 10:35 DCW (Rec: 08/17/20 10:49 DCW [id number]) Manual Assessments Soft Tissue Assessment Soft Tissue Mobility Assessment Moderate Tone, tenderness to palpation 1/4: Complaint of pain; B suboccipitals, B Rhomboids, B Scalenes, B Upper Trap Joint Mobility Assessment Joint Mobility Assessment Mild hypomobility of cervical spine during joint mobilization PT-OP-K Range of Motion Start: 06/12/20 15:17 Freq: Status: Active Protocol: Document 08/17/20 10:35 DCW (Rec: 08/17/20 10:49 DCW [id number]) Cervical Spine Range of Motion Cervical Spine Active Degrees Testing Position Sitting Flexion 54 Extension 45 Rotation Left 61 Rotation Right 59 Lateral Flexion Left 28 Lateral Flexion Right 35 ROM Limitations Soft Tissue Tightness,Muscle Tone PT-OP-L Special Tests Start: 06/12/20 15:17 Freq: Status: Active Protocol: Document 08/17/20 10:35 DCW (Rec: 08/17/20 10:49 DCW [id number]) Special Tests Cervical Spine Special Tests Spurling's Test Test Results Negative Passive Neck Flexion Test Results Negative Slump Test Results Negative Foraminal Compression Test Results Negative PT-OP-M Strength Start: 06/12/20 15:17 Freq: Status: Active Protocol: Document 08/17/20 10:35 DCW (Rec: 08/17/20 10:49 DCW [id number]) Cervical Spine Strength Cervical Spine Manual Muscle Testing Testing Position Sitting Flexion (C1-2) 4+ Good+ Extension 4+ Good+ Rotation Left 4+ Good+ Rotation Right 4+ Good+ Lateral Flexion Left (C3) 4+ Good+ Lateral Flexion Right (C3) 4+ Good+ PT-OP-Q Treatments Start: 06/12/20 15:17 Freq: Status: Active Protocol: Document 09/22/20 09:00 AMB (Rec: 09/22/20 10:11 AMB [id number]) Therapeutic Exercises Prone Exercises 1 Prone Exercise Name scap retract Reps/Minutes 10 Sidelying Exercises Open book Side bilateral Reps/Minutes 15 reps Comments good form head with TS rotation Standing Exercises 8 Standing Exercise Name scap protraction Reps/Minutes 10 Comments plus movement only of push up plus, against wall TS rotation/thread needle Standing Exercise Name plank at wall Side bilateral Resistance AROM Reps/Minutes x5 each side Comments cued scap depression, normal scapular glide and TS Rotation B, forward hips Manual Therapy Treatment Soft Tissue Mobilization 1 Body Location Suboccipitals & cervical paraspinals, suboccipital release Mobilization Type Strumming,Sustained Pressure Intensity/Depth Moderate Body Position Supine Comments with cervical distraction Joint Mobilizations 1 Joint TS Direction P>A Grade II Body Position Prone Comments with exhale Manual Traction c/s Details C/S traction Body Position Hooklying Reps/Duration 2x60 sec PT-OP-R Modalities Start: 06/12/20 15:17 Freq: Status: Active Protocol: Document 07/19/20 07:30 AMB (Rec: 07/19/20 08:25 AMB [id number]) Hot Pack/Cold Pack Treatment Hot Pack Location t spine Patient Position Prone Patient Tolerance Good PT-OP-T Assessment and Plan Start: 06/12/20 15:17 Freq: Status: Active Protocol: Document 09/22/20 09:00 AMB (Rec: 09/22/20 10:11 AMB [id number]) Physical Therapy Assessment Goals Three Impairment Severe (R Upper Trap, Scalenes , Levator) and Mod tone in neck musculature Jail Goal (LTG) Pt to present with mild tone and tenderness to palpation 10/16: complaint of pain in bilateral UT, Scalenes, Rhomboids, and levators LTG Duration 10/17/20 - Improving Assessment Summary Assessment Pt was limited by low back pain today, but did demonstrate improved mobility after ther ex and manual treatment, does fatigue quickly with scapular exercises. Physical Therapy Plan Frequency and Duration Frequency of Treatment 2x/Week Duration of Treatment Two months Plan of Care Start Date 08/17/20 Plan of Care End Date 10/17/20 Therapeutic Interventions Therapeutic Interventions Home Exercise Program,Joint Mobilizations,Manual Therapy, Neuromuscular Re-education, Patient/Caregiver Education, Self-Care/Home Management,Soft Tissue Mobilization, Therapeutic Activities, Therapeutic Exercises Modalities Cold Pack/Ice Massage,Electric Stimulation,Hot Packs, Traction- Mechanical, Ultrasound Discharge Physical Therapy Discharge Comments Insurance visit limitations no more approved visits, pt has purple sheet to schedule more when approved, 2x wk for 4 weeks out to POC 08/21/20 updated. Pt to call Dr Coronel for order of more visits, not yet back to baseline. Next Visit Focus/Plan Next Note Type Treatment Note Next Visit Plan Continue per PT POC: ther ex, manual treatments to decrease pain and soft tissue tightness, improve cervical ROM.
--- NOTE | 2020-09-25 10:33 | PT.OTN ---
Current Diagnoses Pain in right shoulder (09/25/20) Stiffness of unspecified joint, not elsewhere classified (09/25/20) Spondylosis without myelopathy or radiculopathy, cervical region (09/25/20) Cervicalgia (09/25/20) Physical Therapy Treatment Note PT-OP-A Visit Information Start: 06/12/20 15:17 Freq: Status: Active Protocol: Document 09/25/20 09:46 SP (Rec: 09/25/20 12:15 SP [id number]) Out-Patient Physical Therapy Visit Information Visit Information Visit Type Treatment Note Visit Start Time 09:46 Visit Stop Time 10:33 Total Visit Minutes 47 Visit Number 21 Number of UNIX DEVELOPER Visits 1 PT-OP-B Current Condition Start: 06/12/20 15:17 Freq: Status: Active Protocol: Document 06/12/20 14:30 DCW (Rec: 06/12/20 15:53 DCW [id number]) Current Condition History of Current Condition Onset Date mid-March Current Complaints Neck and upper back stiffness History of Current Condition Pt is a 54 year old female presenting with a 2.5 month history of neck and back pain following a fall in mid-March. Pt reports that she tried to step up onto a sidewalk, but caught her toe, hopped a few times to try to regain her balance, and then fell and hit her back. Pt reports she messed up my upper back and neck, and she has noticed a grinding in her neck. Pt does note that her neck is getting better, but still gives her pain with lifting laundry and groceries. Pt also reports some right shoulder pain with some positions and occasionally when lifting. Prior Treatments and Tests Prior PT treatment of low back Cervical X-ray: IMPRESSION: Mild degenerative disc disease in lower cervical spine. No significant bony foraminal stenosis. No fracture or dislocation. Per: Dionisio Naik on 04/20/2020. Lumbar x-ray: IMPRESSION: Multilevel lumbar disc degeneration, grossly unchanged. Grade 1 anterolisthesis of L4 on L5 as before. Per Ruby Kimbrough on 05/11/2020. Fluoroscopically guided, contrast-controlled bilateral L4, L5 and S1 medial branch blocks with 0.5cc of 0.5% Marcaine on 06/01/[address] Coronel PT-OP-C Subjective Start: 06/12/20 15:17 Freq: Status: Active Protocol: Document 09/25/20 09:46 SP (Rec: 09/25/20 12:15 SP [id number]) OP-PT Subjective Patient Comments Patient Comments Pt reported felt mid back tightness about 1 hr after last tx and wondered if the open book was to much. PT-OP-F Manual Assessment Start: 06/12/20 15:17 Freq: Status: Active Protocol: Document 08/17/20 10:35 DCW (Rec: 08/17/20 10:49 DCW [id number]) Manual Assessments Soft Tissue Assessment Soft Tissue Mobility Assessment Moderate Tone, tenderness to palpation 10/16: Complaint of pain; B suboccipitals, B Rhomboids, B Scalenes, B Upper Trap Joint Mobility Assessment Joint Mobility Assessment Mild hypomobility of cervical spine during joint mobilization PT-OP-K Range of Motion Start: 06/12/20 15:17 Freq: Status: Active Protocol: Document 08/17/20 10:35 DCW (Rec: 08/17/20 10:49 DCW [id number]) Cervical Spine Range of Motion Cervical Spine Active Degrees Testing Position Sitting Flexion 54 Extension 45 Rotation Left 61 Rotation Right 59 Lateral Flexion Left 28 Lateral Flexion Right 35 ROM Limitations Soft Tissue Tightness,Muscle Tone PT-OP-L Special Tests Start: 06/12/20 15:17 Freq: Status: Active Protocol: Document 08/17/20 10:35 DCW (Rec: 08/17/20 10:49 DCW [id number]) Special Tests Cervical Spine Special Tests Spurling's Test Test Results Negative Passive Neck Flexion Test Results Negative Slump Test Results Negative Foraminal Compression Test Results Negative PT-OP-M Strength Start: 06/12/20 15:17 Freq: Status: Active Protocol: Document 08/17/20 10:35 DCW (Rec: 08/17/20 10:49 DCW [id number]) Cervical Spine Strength Cervical Spine Manual Muscle Testing Testing Position Sitting Flexion (C1-2) 4+ Good+ Extension 4+ Good+ Rotation Left 4+ Good+ Rotation Right 4+ Good+ Lateral Flexion Left (C3) 4+ Good+ Lateral Flexion Right (C3) 4+ Good+ PT-OP-Q Treatments Start: 06/12/20 15:17 Freq: Status: Active Protocol: Document 09/25/20 09:46 SP (Rec: 09/25/20 12:15 SP [id number]) Cardio Equipment Upper Body Ergometer (UBE) Duration (Minutes) 6 RPM 50 Seat Position 9 Height 4 Other forward/backward 3 min each Therapeutic Exercises Prone Exercises modified superman Prone Exercise Name scap retract/dep, CS ext neutral lift (arms at sides) Reps/Minutes 5 sec hold x5 Comments cued chin nod / tuck shld ext, abd Side right Resistance AROM Reps/Minutes 2x10 each direction Comments cued scap retract/depress stab slow pacing control 1 Prone Exercise Name scap retract w/ depress awareness Reps/Minutes 10 sec hold x10 Comments cued proper set up/form Standing Exercises TS rotation/thread needle Standing Exercise Name plank at wall (off elbows today) Side bilateral Resistance AROM Reps/Minutes x5 each side Comments cued scap depression, normal scapular glide and TS Rotation B, forward hips thoracic extension Standing Exercise Name elbow walking up wall Side bilateral Resistance AROM Reps/Minutes x5 Comments cued CS ext neutral Manual Therapy Treatment Soft Tissue Mobilization 1 Body Location Suboccipitals & cervical paraspinals, suboccipital release Mobilization Type Strumming,Sustained Pressure Intensity/Depth Moderate Body Position Supine Comments with cervical distraction Joint Mobilizations 1 Joint TS Direction P>A Grade II Body Position Prone Comments with exhale Manual Traction c/s Details C/S traction Body Position Hooklying Reps/Duration 2x60 sec PT-OP-R Modalities Start: 06/12/20 15:17 Freq: Status: Active Protocol: Document 07/19/20 07:30 AMB (Rec: 07/19/20 08:25 AMB [id number]) Hot Pack/Cold Pack Treatment Hot Pack Location t spine Patient Position Prone Patient Tolerance Good PT-OP-T Assessment and Plan Start: 06/12/20 15:17 Freq: Status: Active Protocol: Document 09/25/20 09:46 SP (Rec: 09/25/20 12:15 SP [id number]) Physical Therapy Assessment Goals Three Impairment Severe (R Upper Trap, Scalenes , Levator) and Mod tone in neck musculature [facility] Goal (LTG) Pt to present with mild tone and tenderness to palpation / 4: complaint of pain in bilateral UT, Scalenes, Rhomboids, and levators LTG Duration 10/17/20 - Improving Two Impairment Limited cervical ROM (35? flexion, 36? L Rotation) Wood Cut Engraver Goal (LTG) Pt to exhibit improved cervical AROM to 50? flexion and 55? B Rotation to improve ability to turn and look to her side without increased pain LTG Duration 10/17/20 - Improving One Impairment Pt does not have an appropriate home exercise program Short Term Goal (STG) Pt to be independent and compliant with an appropriate HEP STG Duration Met Assessment Summary Assessment Pt responded well to ther ex today, reported more loosened up in thoracic region end of tx. Modified TS rotation thread needle at wall today elbow bent tolerant range instead of open book due to might be irritating thoracolumbar joints. Cuing required scap stab and ROM during prone ex today, improvement inform and CS alignment and stabilization. Physical Therapy Plan Frequency and Duration Frequency of Treatment 2x/Week Duration of Treatment Two months Plan of Care Start Date 08/17/20 Plan of Care End Date 10/17/20 Therapeutic Interventions Therapeutic Interventions Home Exercise Program,Joint Mobilizations,Manual Therapy, Neuromuscular Re-education, Patient/Caregiver Education, Self-Care/Home Management,Soft Tissue Mobilization, Therapeutic Activities, Therapeutic Exercises Modalities Cold Pack/Ice Massage,Electric Stimulation,Hot Packs, Traction- Mechanical, Ultrasound Discharge Physical Therapy Discharge Comments Insurance visit limitations, 3 more approved visits approved . Next Visit Focus/Plan Next Note Type Treatment Note Next Visit Plan Assess response to last tx: prone scap ex, TS mobilization . Continue per PT POC: ther ex, manual treatments to decrease pain and soft tissue tightness, improve cervical ROM.
--- NOTE | 2020-09-28 08:15 | PT.OTN ---
Current Diagnoses Pain in right shoulder (09/28/20) Stiffness of unspecified joint, not elsewhere classified (09/28/20) Spondylosis without myelopathy or radiculopathy, cervical region (09/28/20) Cervicalgia (09/28/20) Physical Therapy Treatment Note PT-OP-A Visit Information Start: 06/12/20 15:17 Freq: Status: Active Protocol: Document 09/28/20 07:32 SP (Rec: 09/28/20 08:18 SP [id number]) Out-Patient Physical Therapy Visit Information Visit Information Visit Type Treatment Note Visit Note 2 more appts left. Visit Start Time 07:32 Visit Stop Time 08:15 Total Visit Minutes 43 Visit Number 22 Number of REFRIGERATOR GLAZIER Visits 2 PT-OP-B Current Condition Start: 06/12/20 15:17 Freq: Status: Active Protocol: Document 06/12/20 14:30 DCW (Rec: 06/12/20 15:53 DCW [id number]) Current Condition History of Current Condition Onset Date mid-March Current Complaints Neck and upper back stiffness History of Current Condition Pt is a 54 year old female presenting with a 2.5 month history of neck and back pain following a fall in mid-March. Pt reports that she tried to step up onto a sidewalk, but caught her toe, hopped a few times to try to regain her balance, and then fell and hit her back. Pt reports she messed up my upper back and neck, and she has noticed a grinding in her neck. Pt does note that her neck is getting better, but still gives her pain with lifting laundry and groceries. Pt also reports some right shoulder pain with some positions and occasionally when lifting. Prior Treatments and Tests Prior PT treatment of low back Cervical X-ray: IMPRESSION: Mild degenerative disc disease in lower cervical spine. No significant bony foraminal stenosis. No fracture or dislocation. Per: Dionisio Naik on 04/20/2020. Lumbar x-ray: IMPRESSION: Multilevel lumbar disc degeneration, grossly unchanged. Grade 1 anterolisthesis of L4 on L5 as before. Per Ruby Kimbrough on 05/11/2020. Fluoroscopically guided, contrast-controlled bilateral L4, L5 and S1 medial branch blocks with 0.5cc of 0.5% Marcaine on 06/01/[address] Coronel PT-OP-C Subjective Start: 06/12/20 15:17 Freq: Status: Active Protocol: Document 09/28/20 07:32 SP (Rec: 09/28/20 08:18 SP [id number]) OP-PT Subjective Patient Comments Patient Comments Pt reported woke not long ago with headache and stiff & 8/10 pain neck and her R LB 8/10 pain seems flared up today, otherwise pretty good. PT-OP-F Manual Assessment Start: 06/12/20 15:17 Freq: Status: Active Protocol: Document 08/17/20 10:35 DCW (Rec: 08/17/20 10:49 DCW [id number]) Manual Assessments Soft Tissue Assessment Soft Tissue Mobility Assessment Moderate Tone, tenderness to palpation 1/4: Complaint of pain; B suboccipitals, B Rhomboids, B Scalenes, B Upper Trap Joint Mobility Assessment Joint Mobility Assessment Mild hypomobility of cervical spine during joint mobilization PT-OP-K Range of Motion Start: 06/12/20 15:17 Freq: Status: Active Protocol: Document 08/17/20 10:35 DCW (Rec: 08/17/20 10:49 DCW [id number]) Cervical Spine Range of Motion Cervical Spine Active Degrees Testing Position Sitting Flexion 54 Extension 45 Rotation Left 61 Rotation Right 59 Lateral Flexion Left 28 Lateral Flexion Right 35 ROM Limitations Soft Tissue Tightness,Muscle Tone PT-OP-L Special Tests Start: 06/12/20 15:17 Freq: Status: Active Protocol: Document 08/17/20 10:35 DCW (Rec: 08/17/20 10:49 DCW [id number]) Special Tests Cervical Spine Special Tests Spurling's Test Test Results Negative Passive Neck Flexion Test Results Negative Slump Test Results Negative Foraminal Compression Test Results Negative PT-OP-M Strength Start: 06/12/20 15:17 Freq: Status: Active Protocol: Document 08/17/20 10:35 DCW (Rec: 08/17/20 10:49 DCW [id number]) Cervical Spine Strength Cervical Spine Manual Muscle Testing Testing Position Sitting Flexion (C1-2) 4+ Good+ Extension 4+ Good+ Rotation Left 4+ Good+ Rotation Right 4+ Good+ Lateral Flexion Left (C3) 4+ Good+ Lateral Flexion Right (C3) 4+ Good+ PT-OP-Q Treatments Start: 06/12/20 15:17 Freq: Status: Active Protocol: Document 09/28/20 07:32 SP (Rec: 09/28/20 08:18 SP [id number]) Cardio Equipment Upper Body Ergometer (UBE) Duration (Minutes) 6 RPM 46 Seat Position 9 Height 4 Other forward/backward 3 min each Therapeutic Exercises Prone Exercises modified superman Prone Exercise Name scap retract/dep, CS ext neutral lift (arms at sides) Reps/Minutes 5 sec hold x5 Comments cued chin nod / tuck shld ext, abd Side right Resistance AROM Reps/Minutes 2x10 each direction Comments cued scap retract/depress stab slow pacing control Sidelying Exercises ABD OH Side right Equipment Used #1 DB Reps/Minutes x15 Open book Side bilateral Resistance #1 DB Reps/Minutes 15 reps Comments good form head with TS rotation Sitting Exercises seated lumbar flexion Sitting Exercise Name seated and stand w/ chair lumbar flexion and sidebend stretch Comments forward x 2 and each side x 1 hold 30 each Standing Exercises UT, lev scap stretch Reps/Minutes 30 each R shld flexion/ abd TB Standing Exercise Name HABD w/ humeral ER Resistance Tb #2 Reps/Minutes 2x10 each Comments cued scap depress, PPT w/ upright posture thoracic extension Standing Exercise Name elbow walking up wall Side bilateral Resistance AROM Reps/Minutes x5 Comments cued CS ext neutral Manual Therapy Treatment Soft Tissue Mobilization UT Body Location Right UT Mobilization Type Myofascial Release,Other Intensity/Depth Moderate Body Position Hooklying Comments MWM head nod and turn Joint Mobilizations 1 Joint TS Direction P>A Grade II Body Position Prone Comments with exhale Manual Traction c/s Details C/S traction Body Position Hooklying Reps/Duration 2x60 sec PT-OP-R Modalities Start: 06/12/20 15:17 Freq: Status: Active Protocol: Document 07/19/20 07:30 AMB (Rec: 07/19/20 08:25 AMB [id number]) Hot Pack/Cold Pack Treatment Hot Pack Location t spine Patient Position Prone Patient Tolerance Good PT-OP-T Assessment and Plan Start: 06/12/20 15:17 Freq: Status: Active Protocol: Document 09/28/20 07:32 SP (Rec: 09/28/20 08:18 SP [id number]) Physical Therapy Assessment Goals Three Impairment Severe (R Upper Trap, Scalenes , Levator) and Mod tone in neck musculature Suction Plate Carrier Cleaner Goal (LTG) Pt to present with mild tone and tenderness to palpation 10/16: complaint of pain in bilateral UT, Scalenes, Rhomboids, and levators LTG Duration 10/17/20 - Improving Two Impairment Limited cervical ROM (35? flexion, 36? L Rotation) Assisted Goal (LTG) Pt to exhibit improved cervical AROM to 50? flexion and 55? B Rotation to improve ability to turn and look to her side without increased pain LTG Duration 10/17/20 - Improving One Impairment Pt does not have an appropriate home exercise program Short Term Goal (STG) Pt to be independent and compliant with an appropriate HEP STG Duration Met Assessment Summary Assessment Pt improved in decreased pain end of tx post manual, stretching and scap stab ther ex from 05/22 to 11/22, I feel alot looser now. Physical Therapy Plan Frequency and Duration Frequency of Treatment 2x/Week Duration of Treatment Two months Plan of Care Start Date 08/17/20 Plan of Care End Date 10/17/20 Therapeutic Interventions Therapeutic Interventions Home Exercise Program,Joint Mobilizations,Manual Therapy, Neuromuscular Re-education, Patient/Caregiver Education, Self-Care/Home Management,Soft Tissue Mobilization, Therapeutic Activities, Therapeutic Exercises Modalities Cold Pack/Ice Massage,Electric Stimulation,Hot Packs, Traction- Mechanical, Ultrasound Discharge Physical Therapy Discharge Comments Insurance visit limitations, 2 more approved visits approved . Next Visit Focus/Plan Next Note Type Treatment Note Next Visit Plan Continue per PT POC: ther ex, manual treatments to decrease pain and soft tissue tightness, improve cervical ROM.
--- NOTE | 2020-10-03 15:19 | PT.OTN ---
Current Diagnoses Pain in right shoulder (10/03/20) Stiffness of unspecified joint, not elsewhere classified (10/03/20) Spondylosis without myelopathy or radiculopathy, cervical region (10/03/20) Cervicalgia (10/03/20) Physical Therapy Treatment Note PT-OP-A Visit Information Start: 06/12/20 15:17 Freq: Status: Active Protocol: Document 10/03/20 14:37 DCW (Rec: 10/03/20 15:19 DCW [id number]) Out-Patient Physical Therapy Visit Information Visit Information Visit Type Treatment Note Visit Start Time 14:37 Visit Stop Time 15:15 Total Visit Minutes 38 Visit Number 23 Number of DIETETIC AIDE Visits 0 PT-OP-B Current Condition Start: 06/12/20 15:17 Freq: Status: Active Protocol: Document 06/12/20 14:30 DCW (Rec: 06/12/20 15:53 DCW [id number]) Current Condition History of Current Condition Onset Date mid-March Current Complaints Neck and upper back stiffness History of Current Condition Pt is a 54 year old female presenting with a 2.5 month history of neck and back pain following a fall in mid-March. Pt reports that she tried to step up onto a sidewalk, but caught her toe, hopped a few times to try to regain her balance, and then fell and hit her back. Pt reports she messed up my upper back and neck, and she has noticed a grinding in her neck. Pt does note that her neck is getting better, but still gives her pain with lifting laundry and groceries. Pt also reports some right shoulder pain with some positions and occasionally when lifting. Prior Treatments and Tests Prior PT treatment of low back Cervical X-ray: IMPRESSION: Mild degenerative disc disease in lower cervical spine. No significant bony foraminal stenosis. No fracture or dislocation. Per: Dionisio Naik on 04/20/2020. Lumbar x-ray: IMPRESSION: Multilevel lumbar disc degeneration, grossly unchanged. Grade 1 anterolisthesis of L4 on L5 as before. Per Ruby Kimbrough on 05/11/2020. Fluoroscopically guided, contrast-controlled bilateral L4, L5 and S1 medial branch blocks with 0.5cc of 0.5% Marcaine on 06/01/[address] Coronel PT-OP-C Subjective Start: 06/12/20 15:17 Freq: Status: Active Protocol: Document 10/03/20 14:37 DCW (Rec: 10/03/20 15:19 DCW [id number]) OP-PT Subjective Patient Comments Patient Comments It depends on the whether or not something going to flare me up or not. I switched out my pillow and put a humaira under my mattress for increased support yesterday, and I did wake up with less pain, so I'm hoping that change will make a difference. PT-OP-F Manual Assessment Start: 06/12/20 15:17 Freq: Status: Active Protocol: Document 08/17/20 10:35 DCW (Rec: 08/17/20 10:49 DCW [id number]) Manual Assessments Soft Tissue Assessment Soft Tissue Mobility Assessment Moderate Tone, tenderness to palpation 1/4: Complaint of pain; B suboccipitals, B Rhomboids, B Scalenes, B Upper Trap Joint Mobility Assessment Joint Mobility Assessment Mild hypomobility of cervical spine during joint mobilization PT-OP-K Range of Motion Start: 06/12/20 15:17 Freq: Status: Active Protocol: Document 08/17/20 10:35 DCW (Rec: 08/17/20 10:49 DCW [id number]) Cervical Spine Range of Motion Cervical Spine Active Degrees Testing Position Sitting Flexion 54 Extension 45 Rotation Left 61 Rotation Right 59 Lateral Flexion Left 28 Lateral Flexion Right 35 ROM Limitations Soft Tissue Tightness,Muscle Tone PT-OP-L Special Tests Start: 06/12/20 15:17 Freq: Status: Active Protocol: Document 08/17/20 10:35 DCW (Rec: 08/17/20 10:49 DCW [id number]) Special Tests Cervical Spine Special Tests Spurling's Test Test Results Negative Passive Neck Flexion Test Results Negative Slump Test Results Negative Foraminal Compression Test Results Negative PT-OP-M Strength Start: 06/12/20 15:17 Freq: Status: Active Protocol: Document 08/17/20 10:35 DCW (Rec: 08/17/20 10:49 DCW [id number]) Cervical Spine Strength Cervical Spine Manual Muscle Testing Testing Position Sitting Flexion (C1-2) 4+ Good+ Extension 4+ Good+ Rotation Left 4+ Good+ Rotation Right 4+ Good+ Lateral Flexion Left (C3) 4+ Good+ Lateral Flexion Right (C3) 4+ Good+ PT-OP-Q Treatments Start: 06/12/20 15:17 Freq: Status: Active Protocol: Document 10/03/20 14:37 DCW (Rec: 10/03/20 15:19 DCW [id number]) Cardio Equipment Upper Body Ergometer (UBE) Duration (Minutes) 6 RPM 46 Seat Position 9 Height 4 Other forward/backward 3 min each Therapeutic Exercises Standing Exercises shld flexion/ abd TB Standing Exercise Name HABD w/ humeral ER Resistance Tb #2 Reps/Minutes 2x10 each Comments cued scap depress, PPT w/ upright posture 2 Standing Exercise Name Shoulder Extension Side bilateral Resistance Lv 2 Equipment Used T-band 1 Standing Exercise Name Rows Side bilateral Resistance Lv 2 Equipment Used T-band Manual Therapy Treatment Soft Tissue Mobilization UT Body Location Right UT Mobilization Type Myofascial Release,Other Intensity/Depth Moderate Body Position Hooklying Comments MWM head nod and turn 1 Body Location Suboccipitals & cervical paraspinals, suboccipital release Mobilization Type Strumming,Sustained Pressure Intensity/Depth Moderate Body Position Supine Comments with cervical distraction Joint Mobilizations 1 Joint TS Direction P>A Grade II Body Position Prone Comments with exhale Manual Traction c/s Details C/S traction Body Position Hooklying Reps/Duration 2x60 sec PT-OP-R Modalities Start: 06/12/20 15:17 Freq: Status: Active Protocol: Document 07/19/20 07:30 AMB (Rec: 07/19/20 08:25 AMB [id number]) Hot Pack/Cold Pack Treatment Hot Pack Location t spine Patient Position Prone Patient Tolerance Good PT-OP-T Assessment and Plan Start: 06/12/20 15:17 Freq: Status: Active Protocol: Document 10/03/20 14:37 DCW (Rec: 10/03/20 15:19 DCW [id number]) Physical Therapy Assessment Goals Three Impairment Severe (R Upper Trap, Scalenes , Levator) and Mod tone in neck musculature Fci Goal (LTG) Pt to present with mild tone and tenderness to palpation 10/16: complaint of pain in bilateral UT, Scalenes, Rhomboids, and levators LTG Duration 10/17/20 - Improving Two Impairment Limited cervical ROM (35? flexion, 36? L Rotation) Fci Goal (LTG) Pt to exhibit improved cervical AROM to 50? flexion and 55? B Rotation to improve ability to turn and look to her side without increased pain LTG Duration 10/17/20 - Improving One Impairment Pt does not have an appropriate home exercise program Short Term Goal (STG) Pt to be independent and compliant with an appropriate HEP STG Duration Met Assessment Summary Assessment Pt overall doing well, approaching end of authorized appointments, will likely discharge following next visit . Pt notes less pain and improved mobility. Physical Therapy Plan Frequency and Duration Frequency of Treatment 2x/Week Duration of Treatment Two months Plan of Care Start Date 08/17/20 Plan of Care End Date 10/17/20 Therapeutic Interventions Therapeutic Interventions Home Exercise Program,Joint Mobilizations,Manual Therapy, Neuromuscular Re-education, Patient/Caregiver Education, Self-Care/Home Management,Soft Tissue Mobilization, Therapeutic Activities, Therapeutic Exercises Modalities Cold Pack/Ice Massage,Electric Stimulation,Hot Packs, Traction- Mechanical, Ultrasound Discharge Physical Therapy Discharge Comments Insurance visit limitations, 1 more approved visit. Next Visit Focus/Plan Next Note Type Treatment Note Next Visit Plan Continue per PT POC: ther ex, manual treatments to decrease pain and soft tissue tightness, improve cervical ROM.
--- NOTE | 2020-10-05 12:02 | PT.OTN ---
Current Diagnoses Pain in right shoulder (10/05/20) Stiffness of unspecified joint, not elsewhere classified (10/05/20) Spondylosis without myelopathy or radiculopathy, cervical region (10/05/20) Cervicalgia (10/05/20) Physical Therapy Treatment Note PT-OP-A Visit Information Start: 06/12/20 15:17 Freq: Status: Active Protocol: Document 10/05/20 11:15 DCW (Rec: 10/05/20 12:02 DCW [id number]) Out-Patient Physical Therapy Visit Information Visit Information Visit Type Discharge Summary Visit Start Time 11:15 Visit Stop Time 12:00 Total Visit Minutes 45 Visit Number 24 Number of REGULATORY SERVICES CONSULTANT Visits 0 PT-OP-B Current Condition Start: 06/12/20 15:17 Freq: Status: Active Protocol: Document 06/12/20 14:30 DCW (Rec: 06/12/20 15:53 DCW [id number]) Current Condition History of Current Condition Onset Date mid-March Current Complaints Neck and upper back stiffness History of Current Condition Pt is a 54 year old female presenting with a 2.5 month history of neck and back pain following a fall in mid-March. Pt reports that she tried to step up onto a sidewalk, but caught her toe, hopped a few times to try to regain her balance, and then fell and hit her back. Pt reports she messed up my upper back and neck, and she has noticed a grinding in her neck. Pt does note that her neck is getting better, but still gives her pain with lifting laundry and groceries. Pt also reports some right shoulder pain with some positions and occasionally when lifting. Prior Treatments and Tests Prior PT treatment of low back Cervical X-ray: IMPRESSION: Mild degenerative disc disease in lower cervical spine. No significant bony foraminal stenosis. No fracture or dislocation. Per: Dionisio Naik on 04/20/2020. Lumbar x-ray: IMPRESSION: Multilevel lumbar disc degeneration, grossly unchanged. Grade 1 anterolisthesis of L4 on L5 as before. Per Ruby Kimbrough on 05/11/2020. Fluoroscopically guided, contrast-controlled bilateral L4, L5 and S1 medial branch blocks with 0.5cc of 0.5% Marcaine on 06/01/[address] Coronel PT-OP-C Subjective Start: 06/12/20 15:17 Freq: Status: Active Protocol: Document 10/05/20 11:15 DCW (Rec: 10/05/20 12:02 DCW [id number]) OP-PT Subjective Patient Comments Patient Comments I'm stiff and hurting this morning for some reason, but overall I'm doing pretty well. PT-OP-F Manual Assessment Start: 06/12/20 15:17 Freq: Status: Active Protocol: Document 08/17/20 10:35 DCW (Rec: 08/17/20 10:49 DCW [id number]) Manual Assessments Soft Tissue Assessment Soft Tissue Mobility Assessment Moderate Tone, tenderness to palpation 10/16: Complaint of pain; B suboccipitals, B Rhomboids, B Scalenes, B Upper Trap Joint Mobility Assessment Joint Mobility Assessment Mild hypomobility of cervical spine during joint mobilization PT-OP-K Range of Motion Start: 06/12/20 15:17 Freq: Status: Active Protocol: Document 08/17/20 10:35 DCW (Rec: 08/17/20 10:49 DCW [id number]) Cervical Spine Range of Motion Cervical Spine Active Degrees Testing Position Sitting Flexion 54 Extension 45 Rotation Left 61 Rotation Right 59 Lateral Flexion Left 28 Lateral Flexion Right 35 ROM Limitations Soft Tissue Tightness,Muscle Tone PT-OP-L Special Tests Start: 06/12/20 15:17 Freq: Status: Active Protocol: Document 08/17/20 10:35 DCW (Rec: 08/17/20 10:49 DCW [id number]) Special Tests Cervical Spine Special Tests Spurling's Test Test Results Negative Passive Neck Flexion Test Results Negative Slump Test Results Negative Foraminal Compression Test Results Negative PT-OP-M Strength Start: 06/12/20 15:17 Freq: Status: Active Protocol: Document 08/17/20 10:35 DCW (Rec: 08/17/20 10:49 DCW [id number]) Cervical Spine Strength Cervical Spine Manual Muscle Testing Testing Position Sitting Flexion (C1-2) 4+ Good+ Extension 4+ Good+ Rotation Left 4+ Good+ Rotation Right 4+ Good+ Lateral Flexion Left (C3) 4+ Good+ Lateral Flexion Right (C3) 4+ Good+ PT-OP-Q Treatments Start: 08/31/20 15:17 Freq: Status: Active Protocol: Document 10/05/20 11:15 DCW (Rec: 10/05/20 12:02 DCW [id number]) Cardio Equipment Upper Body Ergometer (UBE) Duration (Minutes) 6 RPM 60 Seat Position 9 Height 4 Other forward/backward Manual Therapy Treatment Soft Tissue Mobilization UT Body Location Right UT Mobilization Type Myofascial Release,Other Intensity/Depth Moderate Body Position Hooklying Comments MWM head nod and turn 1 Body Location Suboccipitals & cervical paraspinals, suboccipital release Mobilization Type Strumming,Sustained Pressure Intensity/Depth Moderate Body Position Supine Comments with cervical distraction Joint Mobilizations 1 Joint TS Direction P>A Grade II Body Position Prone Comments with exhale Manual Traction c/s Details C/S traction Body Position Hooklying Reps/Duration 2x60 sec PT-OP-R Modalities Start: 06/12/20 15:17 Freq: Status: Active Protocol: Document 07/19/20 07:30 AMB (Rec: 07/19/20 08:25 AMB [id number]) Hot Pack/Cold Pack Treatment Hot Pack Location t spine Patient Position Prone Patient Tolerance Good PT-OP-T Assessment and Plan Start: 06/12/20 15:17 Freq: Status: Active Protocol: Document 10/05/20 11:15 DCW (Rec: 10/05/20 12:02 DCW [id number]) Physical Therapy Assessment Goals Three Impairment Severe (R Upper Trap, Scalenes , Levator) and Mod tone in neck musculature Half-Way Goal (LTG) Pt to present with mild tone and tenderness to palpation 1/ 4: complaint of pain in bilateral UT, Scalenes, Rhomboids, and levators LTG Duration 10/17/20 - Improving Two Impairment Limited cervical ROM (35? flexion, 36? L Rotation) Operations Recruiter Goal (LTG) Pt to exhibit improved cervical AROM to 50? flexion and 55? B Rotation to improve ability to turn and look to her side without increased pain LTG Duration 10/17/20 - Improving One Impairment Pt does not have an appropriate home exercise program Short Term Goal (STG) Pt to be independent and compliant with an appropriate HEP STG Duration Met Progress Towards Goals Progress Towards Goals Progressing Toward Goals Assessment Summary Assessment Pt tolerated treatment well today, less tone around right cervical spine and upper trap. Pt will be undergoing an injection in her low back next month, which she hopes will help loosen everything. Pt insurance authorization ends after today, pt will be discharged at this time. Physical Therapy Plan Frequency and Duration Frequency of Treatment 2x/Week Duration of Treatment Two months Plan of Care Start Date 08/17/20 Plan of Care End Date 10/17/20 Therapeutic Interventions Therapeutic Interventions Home Exercise Program,Joint Mobilizations,Manual Therapy, Neuromuscular Re-education, Patient/Caregiver Education, Self-Care/Home Management,Soft Tissue Mobilization, Therapeutic Activities, Therapeutic Exercises Modalities Cold Pack/Ice Massage,Electric Stimulation,Hot Packs, Traction- Mechanical, Ultrasound Discharge Physical Therapy Discharge Reasons No Longer Attending PT Discharge Comments Insurance visit limitations Next Visit Focus/Plan Next Note Type Discharge Summary Next Visit Plan Continue per PT POC: ther ex, manual treatments to decrease pain and soft tissue tightness, improve cervical ROM.
== END 2020-10-11 13:57 ==
LOC: PHYS 11:15
PROVIDERS: PCP Student in an Organized Health Care Education/Training Program; Referring Provider Student in an Organized Health Care Education/Training Program; Visit Provider Student in an Organized Health Care Education/Training Program
DX: M47.812 Spondylosis without myelopathy or radiculopathy, cervical region (principal); M54.2 Cervicalgia; M25.60 Stiffness of unspecified joint, not elsewhere classified; M25.511 Pain in right shoulder
CPT/HCPCS: 97010; 97110; 97140; 97161

== ENCOUNTER → 2020-10-17 12:01 | Outpatient (CLI) | payer OTHER, SELFPAY ==
[2020-10-17 13:01] LABS: COVID19 -Nasal RAPID Negative (Negative)
== END ==
PROVIDERS: PCP Student in an Organized Health Care Education/Training Program; Visit Provider Physician Assistant
DX: Z20.822 Contact with and (suspected) exposure to COVID-19 (principal)
CPT/HCPCS: 87635

== ENCOUNTER → 2020-10-17 16:57 | Outpatient (CLI) | payer OTHER, SELFPAY ==
--- NOTE | 2020-10-17 17:00 | DI.RAD.S_ITS ---
PROCEDURE: XR CHEST 2V INDICATIONS: cough, sob, tobacco abuse, r/o pneumonia TECHNIQUE: 2 views of the chest were acquired. COMPARISON: [facility], , CHEST 2 VIEW, 09/26/2016, 12:53. FINDINGS: Surgical changes and devices: None. Lungs and pleura: Lungs appear unchanged. No consolidative opacity seen.. No pleural effusions or pneumothorax. Mediastinum: Mediastinal contours are unchanged. Heart size is normal. Bones and chest wall: No suspicious bony abnormalities. Soft tissues appear unremarkable. IMPRESSION: No acute cardiopulmonary abnormality identified. Lungs appear unchanged compared to 2016. Dictated by: Joaquín Goldstein M.D. on 10/17/2020 at 16:19 Approved by: Joaquín Goldstein M.D. on 10/17/2020 at 16:21
== END ==
PROVIDERS: PCP Student in an Organized Health Care Education/Training Program; Referring Provider Physician Assistant; Visit Provider Physician Assistant
DX: Z20.822 Contact with and (suspected) exposure to COVID-19 (principal); R05 Cough; R06.02 Shortness of breath; F17.200 Nicotine dependence, unspecified, uncomplicated
CPT/HCPCS: 71046; 87635

== ENCOUNTER → 2020-12-19 12:46 | Outpatient (CLI) | payer OTHER, SELFPAY ==
[2020-12-19 14:56] LABS: COVID19 -Nasal RAPID Negative (Negative)
== END ==
PROVIDERS: PCP Student in an Organized Health Care Education/Training Program; Visit Provider Physical Medicine & Rehabilitation
DX: Z20.822 Contact with and (suspected) exposure to COVID-19 (principal)
CPT/HCPCS: 87635; C9803

== ENCOUNTER 2020-12-21 10:49 | Outpatient (CLI) | payer OTHER, SELFPAY ==
[2020-12-21] VITALS (11 sets, daily range): BP systolic 110–134; BP diastolic 53–70; PULSE 71–84; RESP 12–32; TEMP 36.9–37; O2SAT 92–99
--- NOTE | 2020-12-21 10:56 | DI.RAD.S_ITS ---
PROCEDURE: PAIN L/S MED/LAT N RFA BILAT INDICATIONS: Bilateral L4-L5 and S1 medial branch RFA COMPARISON: None. FINDINGS: Fluoroscopic spot filming was performed to verify placement of spinal needles at the bilateral L4, L5, and S1 level(s), as labeled on the films. Appropriate location(s) of the needle tip(s) was confirmed by injection of iodinated contrast. IMPRESSION: Fluoroscopic guidance for bilateral L4, L5, and S1 medial branch rhizotomy. Please see procedural note for further details. Dictated by: Abram Lozano M.D. on 12/21/2020 at 14:42 Approved by: Abram Lozano M.D. on 12/21/2020 at 14:52
--- NOTE | 2020-12-21 11:16 | P.PCN_ITS ---
Date/Time/Diagnoses Date of procedure: 12/21/20 Time of procedure: 11:17 Pre-procedure diagnosis: 1. RECALCITRANT FACET ARTHROPATHY Post-procedure diagnosis: same Procedure Notes Procedure: 1. BILATERAL L4 AND L5 MEDIAL BRANCH RADIOFREQUENCY NEUROTOMY AND S1 DORSAL RAMUS BRANCH RADIOFREQUENCY NEUROTOMY Indications: Mohsen is referred by Dr. Yates for treatment of facet arthropathy. Physician: Sandro Coronel Total Fluoroscopy time (seconds): 22 Total sedation minutes: 35 Complications: none Procedure in detail & Post-procedure care: DESCRIPTION OF PROCEDURE Bilateral L4 and L5 medial branch radiofrequency neurotomy and bilateral S1 dorsal ramus radiofrequency neurotomy under fluoroscopy with conscious sedation. The patient is well known to this clinic having undergone previous facet injections with good but temporary relief. The patient has experienced appropriate, concordant relief with previous facet and median branch blocks but the patient's pain has been recalcitrant to further conservative measures. Therefore, based upon the patient's relief and persistent symptoms, the patient is considered an appropriate candidate for facet rhizotomy. All of the patient's questions regarding the risks versus benefits of the procedure, including, but not limited to, bleeding, infection, temporary as well as lasting nerve injury, paralysis, stroke, and , as well treatment alternatives were answered to satisfaction. After obtaining informed consent, denial of pertinent drug allergies, as well as being made aware of the potential risks of bleeding, infection, spinal cord trauma, paralysis, temporary and permanent nerve damage, seizure, stroke, and possible , the patient was brought to the fluoroscopy suite and positioned prone on the fluoroscopy table. The lumbar region was prepped with Chlorhexadine and covered with a fenestrated drape in the usual sterile fashion. Appropriate monitors applied including pulse oximeter, pulse, and blood pressure for regular monitoring throughout the procedure. After review of previous anaesthesic history and IV conscious sedation the patient was deemed safe to proceed with today's procedure with IV conscious sedation as ASA class II designation. Safety time-out was performed to confirm patient ID, procedure to be performed and site of procedure. IV sedation was accomplished with a combination of 4mg of Versed and 50mcg of Fentanyl administered by the RN after DO order, titrated to patient comfort during the course of the procedure while the patient remained responsive to all verbal commands. After local infiltration using 1% lidocaine, under fluoroscopic guidance, a 10- cm RF insulated needle with a 10-mm active tip was positioned parallel to the junction of the right sacral ala and the superior articulating process where the S1 dorsal ramus resides. Needle placement was confirmed with motor stimulation of .5v on the right which produced local stimulation without radicular component. The stimulation was then increased to 2v with, once again, only local multifidus stimulation without radicular component. The needle was then removed and the identical procedure was performed along the length of the right L5 medial branch with motor stimulation at .7v on the right. The identical procedure was once again performed along the length of the right L4 medial branch with motor stimulation of .5v on the right. The medial branches were then anesthetised with 0.5% Marcaine. This was then followed by two discreet lesions performed at 80 degrees Celsius for 90 seconds each. The identical procedure was repeated on the left. The patient tolerated the procedure well without signs or symptoms of complications prior to transfer to the recovery area continued monitoring without incident. The patient was then transferred to the recovery area where they were observed for an appropriate period of time after the injection. The patient reported a VAS score of 9 prior to the procedure and a post-procedure VAS of 0. POST OP INSTRUCTIONS The patient was provided a Pain Log to continue to record the patient's response to the target-specific procedure prior to the patient's follow-up visit with the referring physician. Additionally, specific post-injection care instructions and a contact number to our office were provided if concerns arise regarding possible complications associated with the procedure are suspected.
[2020-12-21] MEDS: fentaNYL 100 MCG/2 ML INJ 50 MCG IV (11:21)
[2020-12-21] MEDS: BUPIVACAINE 0.5% (PF) VIAL 5 ML INJ (11:26)
[2020-12-21] MEDS: LIDOCAINE 1% 20 ML INJ (11:26)
[2020-12-21] MEDS: MIDAZOLAM 5 MG/5 ML VIAL IV (11:36)
== END 2020-12-21 12:15 | disposition hospice, home (50) ==
LOC: RAD 10:50
PROVIDERS: PCP Student in an Organized Health Care Education/Training Program; Referring Provider Physical Medicine & Rehabilitation; Visit Provider Physical Medicine & Rehabilitation
DX: M47.816 Spondylosis without myelopathy or radiculopathy, lumbar region (principal); M47.817 Spondylosis without myelopathy or radiculopathy, lumbosacral region
CPT/HCPCS: 64635; 64636; 99152; 99153; J2250; J3010

== ENCOUNTER → 2021-02-22 08:09 | Outpatient (CLI) | payer OTHER, SELFPAY ==
--- NOTE | 2021-02-22 08:12 | DI.MRI.S_ITS ---
PROCEDURE: MR LUMBAR SPINE WO CON INDICATIONS: LOW BACK PAIN TECHNIQUE: Noncontrast sagittal T1 spin echo and T2 fast echo, coronal T2, sagittal STIR, axial T1 and T2 fast spin echo through the lumbar spine. COMPARISON: [facility], , MR LUMBAR SPINE WO CON, 03/10/2018, 14:33. FINDINGS: Image quality: Excellent. Alignment and Curvature: 5 lumbar type vertebral bodies are present by plain film. Mild grade 1 retrolisthesis of L1 on L2, L2 on L3, and L5 on S1. Mild grade 1 anterolisthesis of L4 on L5. Mild rightward curvature of the upper lumbar spine. Bone Marrow: Marrow is of normal overall signal. No acute vertebral body compression fractures. Minimal reactive signal throughout the endplates of the lumbar spine. Spinal Cord: Conus medullaris terminates at the upper L2 level. Visualized cord demonstrates normal signal and size. Paraspinous Soft Tissues: No paravertebral masses. T12-L1: Normal appearance. L1-L2: Moderate disc height loss. Mild disc desiccation. Mild diffuse disc bulge. Mild facet and ligamentum flavum hypertrophy. Mild canal stenosis. No significant foraminal stenosis. No significant change. L2-L3: Moderate disc height loss. Mild disc desiccation and diffuse disc bulge. Mild bilateral facet hypertrophy. Mild canal stenosis. Increased, moderate left foraminal stenosis. No change in mild right foraminal stenosis. L3-L4: Mild disc height loss and desiccation. Mild diffuse disc bulge. Mild facet and ligamentum flavum hypertrophy. Mild epidural lipomatosis. Mild canal stenosis. No change in mild bilateral foraminal stenosis. L4-L5: Moderate disc height loss and desiccation. Mild diffuse disc bulge. Moderate facet hypertrophy bilaterally. Mild canal stenosis. Mild to moderate bilateral foraminal stenosis, increased from the prior examination. L5-S1: Moderate disc height loss and desiccation. Mild diffuse disc bulge. Moderate bilateral facet hypertrophy. Mild canal stenosis. No change in moderate right and mild left foraminal stenosis. IMPRESSION: 1. Multilevel degenerative disc and facet disease, as well as ligamentum flavum hypertrophy and epidural lipomatosis. 2. Mild multilevel canal stenosis. 3. Multilevel foraminal stenoses, worst at L5-S1 on the right where there is moderate foraminal stenosis. Dictated by: Maureen Jones M.D. on 02/22/2021 at 9:07 Approved by: Maureen Jones M.D. on 02/22/2021 at 9:12
== END ==
PROVIDERS: PCP Student in an Organized Health Care Education/Training Program; Referring Provider Physical Medicine & Rehabilitation; Visit Provider Physical Medicine & Rehabilitation
DX: M43.16 Spondylolisthesis, lumbar region (principal); M54.5 Low back pain; M51.36 Other intervertebral disc degeneration, lumbar region; M51.37 Other intervertebral disc degeneration, lumbosacral region; M48.061 Spinal stenosis, lumbar region without neurogenic claudication; M48.07 Spinal stenosis, lumbosacral region; E88.2 Lipomatosis, not elsewhere classified
CPT/HCPCS: 72148

== ENCOUNTER → 2021-03-22 13:02 | Outpatient (CLI) | payer OTHER, SELFPAY ==
--- NOTE | 2021-03-22 | DI.RAD.S_ITS ---
PROCEDURE: XR THORACIC SPINE 2V INDICATIONS: Strain of unspecified muscle, fascia and tendon at wrist and TECHNIQUE: 3 views of the thoracic spine were acquired. COMPARISON: X-ray thoracic spine, 2-views, 05/01/2017. FINDINGS: Bones: No fractures or dislocations. No suspicious bony lesions. There is moderate degenerative disc disease throughout the thoracic spine. 12 pairs of ribs are noted, and appear intact where visualized. Soft tissues: No paravertebral stripe thickening. IMPRESSION: 1. No acute osseous abnormalities. 2. Moderate degenerative disc disease. Dictated by: Jannet Bateman M.D. on 03/22/2021 at 16:39 Approved by: Jannet Bateman M.D. on 03/22/2021 at 16:42
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
--- NOTE | 2021-03-22 | DI.RAD.S_ITS ---
PROCEDURE: XR SHOULDER RT MIN 2V INDICATIONS: Strain of unspecified muscle, fascia and tendon at wrist and TECHNIQUE: 3 views of the shoulder were acquired. COMPARISON: None. FINDINGS: Bones: No fractures or dislocations. No suspicious bony lesions. There is moderate acromioclavicular and glenohumeral joint degeneration. Visualized ribs appear intact. Soft tissues: Calcific densities over the humeral head, suggesting rotator cuff calcific tendinitis. IMPRESSION: 1. Moderate degenerative joint disease. 2. Suspect rotator cuff calcific tendinitis. Dictated by: Jannet Bateman M.D. on 03/22/2021 at 14:34 Approved by: Jannet Bateman M.D. on 03/22/2021 at 14:36
--- NOTE | 2021-03-22 | DI.RAD.S_ITS ---
PROCEDURE: XR HIP W PEL IF DONE RT 2V INDICATIONS: Strain of unspecified muscle, fascia and tendon at wrist and TECHNIQUE: AP pelvis with lateral view(s) of the right hip(s). COMPARISON: [facility], , [id number] W PEL IF PERFORMED, 11/19/2017, 16:05. FINDINGS: Bones: No fractures or dislocations. Pelvic ring appears intact. No suspicious bony lesions. Soft tissues: The visualized bowel gas pattern is normal. No suspicious soft tissue calcifications. IMPRESSION: No fracture or dislocation. If clinical symptoms persist or clinical suspicion for pathology is high, a repeat examination in 7-10 days, or advanced imaging such as CT or MRI is suggested for further evaluation. Dictated by: Jannet Bateman M.D. on 03/22/2021 at 16:46 Approved by: Jannet Bateman M.D. on 03/22/2021 at 16:47
--- NOTE | 2021-03-22 | DI.RAD.S_ITS ---
PROCEDURE: XR WRIST RT MIN 3V INDICATIONS: Strain of unspecified muscle, fascia and tendon at wrist and TECHNIQUE: 4 views of the wrist were acquired. COMPARISON: None. FINDINGS: Bones: No fractures or dislocations. No suspicious bony lesions. Scaphoid view: Scaphoid is intact. Soft tissues: No suspicious soft tissue calcifications. IMPRESSION: No acute osseous abnormalities. Dictated by: Jannet Bateman M.D. on 03/22/2021 at 14:37 Approved by: Jannet Bateman M.D. on 03/22/2021 at 14:39
--- NOTE | 2021-03-22 | DI.RAD.S_ITS ---
PROCEDURE: XR KNEE RT 3V INDICATIONS: Strain of unspecified muscle, fascia and tendon at wrist and TECHNIQUE: 3 views of the knee were acquired. COMPARISON: None. FINDINGS: Bones: No fractures or dislocations. No suspicious bony lesions. Mild tricompartmental knee joint degeneration. Soft tissues: No joint effusion. No suspicious soft tissue calcifications. A linear calcification is noted in the medial aspect of the knee at the area of proximal medial collateral ligament insertion. IMPRESSION: 1. Mild degenerative joint disease. 2. Linear calcification in the area of proximal MCL insertion, probably related to prior MCL injury. Dictated by: Jannet Bateman M.D. on 03/22/2021 at 14:39 Approved by: Jannet Bateman M.D. on 03/22/2021 at 14:40
--- NOTE | 2021-03-22 | DI.RAD.S_ITS ---
PROCEDURE: XR KNEE LT 3V INDICATIONS: Strain of unspecified muscle, fascia and tendon at wrist and TECHNIQUE: 3 views of the knee were acquired. COMPARISON: None. FINDINGS: Bones: No fractures or dislocations. No suspicious bony lesions. Mild tricompartmental knee joint degeneration. Soft tissues: No joint effusion. No suspicious soft tissue calcifications. IMPRESSION: Mild degenerative joint disease. Dictated by: Jannet Bateman M.D. on 03/22/2021 at 14:36 Approved by: Jannet Bateman M.D. on 03/22/2021 at 14:37
== END ==
PROVIDERS: PCP Student in an Organized Health Care Education/Training Program; Referring Provider Registered Nurse; Visit Provider Registered Nurse
DX: S23.3XXA Sprain of ligaments of thoracic spine, initial encounter (principal); S13.4XXA Sprain of ligaments of cervical spine, initial encounter; S46.911A Strain of unspecified muscle, fascia and tendon at shoulder and upper arm level, right arm, initial encounter; S83.92XA Sprain of unspecified site of left knee, initial encounter; S83.91XA Sprain of unspecified site of right knee, initial encounter; S66.911A Strain of unspecified muscle, fascia and tendon at wrist and hand level, right hand, initial encounter; S76.011A Strain of muscle, fascia and tendon of right hip, initial encounter; M19.011 Primary osteoarthritis, right shoulder; M17.0 Bilateral primary osteoarthritis of knee; M50.322 Other cervical disc degeneration at C5-C6 level; M51.34 Other intervertebral disc degeneration, thoracic region; X58.XXXA Exposure to other specified factors, initial encounter
CPT/HCPCS: 72040; 72070; 73030; 73110; 73502; 73562

== ENCOUNTER → 2021-06-11 07:37 | Outpatient (CLI) | payer OTHER, SELFPAY ==
[2021-06-11 08:58] LABS: Creatinine Urine Random 98.5 mg/dL
[2021-06-11 09:00] LABS: BUN Creatinine Ratio 27.2 (6-22); Blood Urea Nitrogen 22 mg/dL (7-17); Calcium 10.1 mg/dL (8.4-10.2); Carbon Dioxide 30 mmol/L (22-32); Chloride 105 mmol/L (98-107); Estimated Glomerular Filt Rate > 60.0 mL/min (>60); Glucose 107 mg/dL (70-100); HEMOLYSIS < 15 (0-50); Sodium 142 mmol/L (137-145)
[2021-06-11 09:03] LABS: Microalbumi Creatinin Ratio Ur 15.2 ug/mg CR (<30); Microalbumin Urine Random 1.5 mg/dL (0-1.6)
[2021-06-11 09:03] LABS: Potassium 5.5 mmol/L (3.4-5.1)
== END ==
PROVIDERS: PCP Student in an Organized Health Care Education/Training Program; Referring Provider Student in an Organized Health Care Education/Training Program; Visit Provider Student in an Organized Health Care Education/Training Program
DX: Z79.1 Long term (current) use of non-steroidal anti-inflammatories (NSAID) (principal)
CPT/HCPCS: 36415; 80048; 82043; 82570

== ENCOUNTER → 2021-09-04 15:21 | Outpatient (CLI) | payer OTHER, SELFPAY ==
--- NOTE | 2021-09-04 | DI.MG.S_ITS ---
BILATERAL DIGITAL SCREENING MAMMOGRAM 3D/2D WITH CAD: 09/04/2021 CLINICAL: Routine screening. Family history of breast cancer. Comparison is made to exams dated: 08/13/2018 mammogram, 08/01/2016 ultrasound, and 08/01/2016 mammogram - [facility]. There are scattered fibroglandular elements in both breasts. Current study was also evaluated with a Computer Aided Detection (CAD) system. No significant masses, calcifications, or other findings are seen in either breast. There has been no significant interval change. IMPRESSION: NEGATIVE There is no mammographic evidence of malignancy. A 1 year screening mammogram is recommended. This exam was interpreted at Station ID: [id number]. NOTE: For mammograms, a report in lay terms will be sent to the patient. Approximately 15% of breast malignancies will not be visualized mammographically. In the management of a palpable breast mass, a negative mammogram must not discourage biopsy of a clinically suspicious lesion. Electronically Signed By: Andreia [email or web address]:09/04/2021 16:21:26 letter sent: Normal Exam ACR BI-RADS Category 1: Negative [id number]
== END ==
PROVIDERS: PCP Student in an Organized Health Care Education/Training Program; Referring Provider Student in an Organized Health Care Education/Training Program; Visit Provider Student in an Organized Health Care Education/Training Program
DX: Z12.31 Encounter for screening mammogram for malignant neoplasm of breast (principal); Z80.3 Family history of malignant neoplasm of breast
CPT/HCPCS: 77063; 77067

== ENCOUNTER → 2021-11-15 12:18 | Outpatient (CLI) | payer OTHER, SELFPAY ==
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
== END ==
PROVIDERS: PCP Student in an Organized Health Care Education/Training Program; Referring Provider Physician Assistant; Visit Provider Physician Assistant
DX: M79.661 Pain in right lower leg (principal)
CPT/HCPCS: 73562; 73610

== ENCOUNTER → 2021-12-07 08:18 | Outpatient (CLI) | payer OTHER, SELFPAY ==
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
== END ==
PROVIDERS: PCP Student in an Organized Health Care Education/Training Program; Referring Provider Student in an Organized Health Care Education/Training Program; Visit Provider Student in an Organized Health Care Education/Training Program
DX: S49.91XA Unspecified injury of right shoulder and upper arm, initial encounter (principal); M19.011 Primary osteoarthritis, right shoulder; M75.31 Calcific tendinitis of right shoulder; V89.2XXA Person injured in unspecified motor-vehicle accident, traffic, initial encounter
CPT/HCPCS: 73030; 73100

== ENCOUNTER → 2022-01-10 15:00 | Outpatient (CLI) | payer OTHER, SELFPAY ==
--- NOTE | 2022-01-10 15:03 | DI.RAD.S_ITS ---
PROCEDURE: XR LUMBAR SPINE MIN 4V INDICATIONS: hip and back pain TECHNIQUE: 5 views of the lumbar spine were acquired, including bilateral oblique views. COMPARISON: None. FINDINGS: Bones: 5 nonrib-bearing vertebrae are present. There is mild L4-L5 anterolisthesis secondary to facet hypertrophy. There is mild convex right curvature of the lumbar spine. No vertebral body compression fractures. No suspicious bony lesions. Moderate degenerative disc changes noted throughout the lumbar spine. Moderate L3-L4, L4-L5 and L5-S1 facet hypertrophy. Mild L1-L2 and L2-L3 facet hypertrophy. Soft tissues: Overlying bowel gas pattern is normal. No suspicious soft tissue calcifications. Oblique images: No pars defects. IMPRESSION: 1. Multilevel degenerative disc disease. 2. Multilevel facet arthropathy. 3. No fracture. No acute osseous lesion. If symptoms and/or clinical suspicion for pathology persists, evaluation with MRI should be considered for further assessment. 4. Grade 1 L4-L5 degenerative spondylolisthesis. Dictated by: Kiersten Kowalski MD, PhD on 01/10/2022 at 16:00 Approved by: Kiersten Kowalski MD, PhD on 01/10/2022 at 16:01
--- NOTE | 2022-01-10 15:03 | DI.RAD.S_ITS ---
PROCEDURE: XR HIP W PEL IF DONE [place] MIN 4V INDICATIONS: HIP PAIN TECHNIQUE: AP pelvis with lateral view(s) of the right and left hip(s). COMPARISON: None. FINDINGS: Bones: No fractures or dislocations. Pelvic ring appears intact. No suspicious bony lesions. Soft tissues: The visualized bowel gas pattern is normal. No suspicious soft tissue calcifications. IMPRESSION: No osseous lesion. If symptoms and/or clinical suspicion for pathology persists, further assessment with repeat radiographs (7-10 days) or advanced imaging (e.g. CT, MRI or bone scan) should be considered. Dictated by: Kiersten Kowalski MD, PhD on 01/10/2022 at 15:59 Approved by: Kiersten Kowalski MD, PhD on 01/10/2022 at 16:00
== END ==
PROVIDERS: PCP Student in an Organized Health Care Education/Training Program; Referring Provider Physical Medicine & Rehabilitation; Visit Provider Physical Medicine & Rehabilitation
DX: M47.817 Spondylosis without myelopathy or radiculopathy, lumbosacral region (principal); M51.37 Other intervertebral disc degeneration, lumbosacral region; M25.559 Pain in unspecified hip; M47.816 Spondylosis without myelopathy or radiculopathy, lumbar region; M43.16 Spondylolisthesis, lumbar region
CPT/HCPCS: 72110; 73522

== ENCOUNTER → 2022-03-28 08:19 | Outpatient (CLI) | payer OTHER, SELFPAY ==
--- NOTE | 2022-03-28 08:22 | DI.MRI.S_ITS ---
PROCEDURE: MR LUMBAR SPINE WO CON INDICATIONS: Left L4/L5 radicular symptoms TECHNIQUE: Noncontrast sagittal T1 spin echo and T2 fast echo, sagittal STIR, and T2 fast spin echo through the lumbar spine. In cases with scoliosis, additional coronal T2 fast spin echo may be performed. COMPARISON: None. FINDINGS: Degenerative anterolisthesis of L4 on L5 measuring 3 millimeters. Otherwise normal alignment. Vertebral body heights maintained. There is no suspicious focal marrow signal abnormality. Periarticular bone marrow edema in association with facet osteoarthropathy at T12-L1, L1-L2, and L2-L3, with extension of the edema into the facet pillars and to a lesser degree within the pedicles. Normal position and appearance of the conus. Regional soft tissues are unremarkable. T12-L1: No spinal canal or neural foraminal stenosis. L1-L2: Disc bulge flattens the ventral thecal sac. No mass effect upon the traversing L2 nerve roots. No neural foraminal stenosis. Moderate facet hypertrophy. L2-L3: Disc bulge flattens the ventral thecal sac without mass effect upon traversing L3 nerve roots. Foraminal components of the disc bulge and facet hypertrophy combine to produce moderate left and mild right neural foraminal stenosis. There is flattening of the exiting left L2 nerve root due to abutment by both disc and facet material. L3-L4: Diffuse disc bulge without mass effect upon the traversing L4 nerve roots. Foraminal components of the disc bulge and facet hypertrophy combine to produce mild bilateral neural foraminal stenosis. L4-L5: Diffuse disc bulge and a superimposed broad-based posterior disc protrusion flatten the ventral thecal sac with displacement of the descending L5 nerve roots in both subarticular zones. Foraminal components of the disc bulge and facet hypertrophy combine to produce mild bilateral neural foraminal stenosis. L5-S1: Diffuse disc bulge with mild displacement of the descending S1 nerve roots in both subarticular zones. Foraminal components of the disc bulge contribute to moderate right and mild left neural foraminal stenosis. Disc material abuts and may slightly flatten the exiting right L5 nerve root. IMPRESSION: No definite evidence of focal nerve root impingement to explain the reported history of left L4/L5 radicular symptoms. Overall moderate degenerative changes. Marrow edema in association with facet osteoarthropathy from T12-L1 through L2-L3. This is a potential source of nonradicular axial back pain. Dictated by: Pérez Stevenson M.D. on 03/28/2022 at 11:16 Approved by: Pérez Stevenson M.D. on 03/28/2022 at 11:20
== END ==
PROVIDERS: PCP Student in an Organized Health Care Education/Training Program; Referring Provider Physical Medicine & Rehabilitation; Visit Provider Physical Medicine & Rehabilitation
DX: M47.815 Spondylosis without myelopathy or radiculopathy, thoracolumbar region (principal); M47.816 Spondylosis without myelopathy or radiculopathy, lumbar region; M43.16 Spondylolisthesis, lumbar region
CPT/HCPCS: 72148

== ENCOUNTER 2022-11-07 10:01 | Outpatient (CLI) | payer OTHER, SELFPAY ==
[2022-11-07] VITALS (9 sets, daily range): BP systolic 96–120; BP diastolic 55–72; PULSE 61–72; RESP 14–24; TEMP 36.3; O2SAT 96–100
--- NOTE | 2022-11-07 10:03 | DI.RAD.S_ITS ---
PROCEDURE: PAIN L/S TRANSFORAMINAL INJECT INDICATIONS: SPONDYLOSIS COMPARISON: [facility], MR, MR LUMBAR SPINE WO CON, 03/28/2022, 8:27. FINDINGS: Fluoroscopic spot filming was performed to verify placement of a spinal needle at the L4-L5 level, as labeled on the films. Appropriate location of the needle tip was confirmed by injection of iodinated contrast. IMPRESSION: Intraprocedural examination within normal limits. Dictated by: Jemal Kilpatrick M.D. on 11/07/2022 at 19:47 Approved by: Jemal Kilpatrick M.D. on 11/07/2022 at 19:47
[2022-11-07] MEDS: MIDAZOLAM 2 MG/2 ML VIAL IV (11:09)
[2022-11-07] MEDS: IOPAMIDOL 15 ML VIAL 3 ML INJ (11:12)
[2022-11-07] MEDS: BUPIVACAINE 0.25% (PF) VIAL 2 ML INJ (11:12)
[2022-11-07] MEDS: BETAMETHASONE 30 MG/5 ML MDV 6 MG INJ (11:13)
[2022-11-07] MEDS: DEXAMETHASONE 10 MG/ML VIAL 20 MG INJ (11:13)
--- NOTE | 2022-11-07 11:31 | P.PCN_ITS ---
Date/Time/Diagnoses Date of procedure: 11/07/22 Time of procedure: 11:31 Pre-procedure diagnosis: 1. FORAMINAL STENOSIS WITH LE SYMPTOMS Post-procedure diagnosis: same Procedure Notes Procedure: 1. FLUOROSCOPICALLY GUIDED CONTRAST CONTROLLED TRANSFORAMINAL EPIDURAL STEROID INJECTION - LEFT L4/5 Indications: Mohsen is referred by Dr. Yates for treatment of Foraminal Stenosis with Left LE Symptoms Physician: Sandro Coronel Total Fluoroscopy time (seconds): 15 Total sedation minutes: 13 Complications: none Procedure in detail & Post-procedure care: FINDINGS Foraminal Nerve Root Compression secondary to disc disease and facet hypertrophy DESCRIPTION OF PROCEDURE Following review of allergy and review of potential side effects and complications, including, but not necessarily limited to, infection, allergic reaction, local tissue breakdown, stroke, temporary or permanent nerve injury, paralysis, and possible , the patient indicated that the patient understood and agreed to proceed. An informed consent document was signed by the patient, witnessed by a nurse, and placed in the patient's chart. Additionally, other treatment options including medications, modalities, and physical therapy were reviewed with the patient. After review of previous anaesthesic history and IV conscious sedation the patient was deemed safe to proceed with today?s procedure with IV conscious sedation as ASA class II designation. Safety time-out was performed to confirm patient ID, procedure to be performed and site of procedure. IV sedation was accomplished with a combination of 2mg of Versed administered by the RN after DO order, titrated to patient comfort during the course of the procedure while the patient remained responsive to all verbal commands In the prone position following sterile prep and drape of the lumbar region, the left L4/5 posterior neuroforamen was identified fluoroscopically. The skin was anesthetized via a 25-gauge 1.5-inch needle with 1% lidocaine solution. At this point, a 25-gauge 3.5-inch spinal needle was atraumatically introduced and advanced under fluoroscopic guidance through the posterior left L4/5 neuroforamen to approximately the anterior aspect of the canal. Depth was confirmed on lateral view. Following negative aspiration, injection of approximately 1.5 cc of Isovue 200 under live fluoroscopy in the AP view confirmed excellent flow along the nerve root, into the epidural space without vascular or intrathecal uptake observed Radiological data, including multiple fluoroscopic views of the lumbosacral spine, reveal a spinal needle at the left L4/5 posterior neuroforamen. Subsequent views show flow of contrast material flowing superiorly and inferiorly along the nerve root confirming epidural flow. Subsequently, a test dose of 1.5 cc of 1% lidocaine solution was administered and patient was observed for two minutes for signs or symptoms of complications, including abdominal pain, shortness of breath, bilateral upper or lower extremity weakness, nausea and vomiting, prior to steroid injection. At this point, a total of 3cc or 20mg of dexamethasone and 6mg of betamethasone was injected without incident. The procedure tolerated the procedure well without signs or symptoms of complications prior to transfer to the recovery area continued monitoring without incident. The patient was then transferred to the recovery area where they were observed for an appropriate time after the injection. The patient reported a VAS score of 7 prior to the procedure and a post- procedure VAS of 0. POST OP INSTRUCTIONS The patient was provided a Pain Log to continue to record their response to the target-specific procedure prior to follow-up visit with their referring physician. Additionally, specific post-injection care instructions and a contact number to our office were provided if concerns arise regarding possible complications associated with the procedure are suspected.
== END 2022-11-07 11:43 | disposition home or self-care (01) ==
LOC: RAD 10:02
PROVIDERS: PCP Student in an Organized Health Care Education/Training Program; Referring Provider Physical Medicine & Rehabilitation; Visit Provider Physical Medicine & Rehabilitation
DX: M48.061 Spinal stenosis, lumbar region without neurogenic claudication (principal); M51.16 Intervertebral disc disorders with radiculopathy, lumbar region
CPT/HCPCS: 64483; 99152; J0702; J1100; J2250; J3490

== ENCOUNTER 2023-02-20 09:54 | Outpatient (CLI) | payer OTHER, SELFPAY ==
[2023-02-20] VITALS (8 sets, daily range): BP systolic 102–122; BP diastolic 52–67; PULSE 55–70; RESP 12–20; TEMP 36.6; O2SAT 90–99
--- NOTE | 2023-02-20 09:55 | DI.RAD.S_ITS ---
PROCEDURE: PAIN SI JOINT INJECTION INDICATIONS: JOINT DYSFUNCTION COMPARISON: [facility], XA, PAIN L/S TRANSFORAMINAL INJECT, 11/07/2022, 12:12. FINDINGS: On these intraprocedural images, there is a spinal needle seen overlying the inferior aspect of the left sacroiliac joint. Appropriate position of the tip of the needle was confirmed by injection of a small amount of iodinated contrast. IMPRESSION: Successful sacroiliac joint injection. Dictated by: Jemal Kilpatrick M.D. on 02/20/2023 at 11:45 Approved by: Jemal Kilpatrick M.D. on 02/20/2023 at 11:45
[2023-02-20] MEDS: MIDAZOLAM 2 MG/2 ML VIAL IV (11:24)
[2023-02-20] MEDS: IOPAMIDOL 15 ML VIAL 3 ML INJ (11:30)
[2023-02-20] MEDS: BETAMETHASONE 30 MG/5 ML MDV 6 MG INJ (11:30)
[2023-02-20] MEDS: BUPIVACAINE 0.5% (PF) 30 ML VIAL INJ (11:30)
--- NOTE | 2023-02-20 11:37 | PM.PROC.IR.1 ---
Date/Time/Diagnoses Date of procedure: 02/20/23 Time of procedure: 11:37 Pre-procedure diagnosis: Sacroiliac Joint Pain/DJD Post-procedure diagnosis: same Procedure Notes Procedure: Fluoroscopically guided contrast controlled left sacroiliac joint injection Indications: Mohsen is referred by Dr. Yates for treatment of left sacroiliac joint DJD Physician: Sandro Coronel Total Fluoroscopy time (seconds): 9 Total sedation minutes: 10 Complications: none Procedure in detail & Post-procedure care: DESCRIPTION OF PROCEDURE Fluoroscopic guided, contrast controlled left sacroiliac joint injection Following review of allergies and review of potential side effects and complications, including, but not necessarily limited to, infection, allergic reaction, local tissue breakdown, temporary as well as permanent nerve injury, paralysis, stroke and possible , the patient indicated that they understood and agreed to proceed. An informed consent was signed by the patient, witnessed by a nurse, and placed in the patient's chart. Additionally, other treatment options including modalities, medications, and physical therapy were reviewed with the patient. After review of previous anaesthesic history and IV conscious sedation the patient was deemed safe to proceed with today?s procedure with IV conscious sedation as ASA class II designation. Safety time-out was performed to confirm patient ID, procedure to be performed and site of procedure. IV sedation was accomplished with a combination of 2mg of Versed administered by the RN after DO order, titrated to patient comfort during the course of the procedure while the patient remained responsive to all verbal commands. In the prone position following sterile prep and drape of the pelvic region, the hyper lucency on in the inferior aspect of the left sacroiliac joint was identified fluoroscopically the skin was anesthetized be a 25 gauge 1 eventual with approximately 2cc of 1% lidocaine solution. At this point, a 22 gauge 3inch spinal needle was atraumatically introduced and advanced under fluoroscopic guidance into the inferior aspect of the left sacroiliac joint. Following negative aspiration, approximately 0.3cc of Isovue-300 was injected confirming intra-articular placement without vascular uptake. Radiographic data, including multiple fluoroscopic views of the pelvis, reveals a spinal needle in the left sacroiliac joint hyper lucent zone. Subsequent view show flow contrast tear superiorly and inferiorly within the joint capsule without vascular intrathecal uptake. At this point a total of 1cc or 0.5% Marcaine was combined with 1cc of 6mg of betamethasone was injected without incident. The patient tolerated the procedure well without signs or symptoms of complications prior to transfer to the recovery area for further monitoring. The patient was then transferred to the recovery area with a bur observed for an appropriate time after the injection. The patient reverted a vas score of 7 prior to the procedure and postprocedure vas of 1. POSTOP INSTRUCTIONS The patient was provided with a pain like to continue to record the patient's response to the target specific procedure prior to the patient's follow-up visit with the referring physician. Additionally, specific post injection care instructions and a contact number to our office were provided if concerns arise regarding the possible complications associated with procedure are suspected.
== END 2023-02-20 11:57 | disposition home or self-care (01) ==
PROVIDERS: PCP Student in an Organized Health Care Education/Training Program; Referring Provider Physical Medicine & Rehabilitation; Visit Provider Physical Medicine & Rehabilitation
DX: M53.3 Sacrococcygeal disorders, not elsewhere classified (principal); M46.1 Sacroiliitis, not elsewhere classified
CPT/HCPCS: 27096; 99152; J0702; J2250

== ENCOUNTER → 2024-03-01 12:06 | Outpatient (CLI) | payer OTHER, MEDICAID, SELFPAY ==
[2024-03-01 13:04] LABS: Erythrocyte Sedimentation Rate 19 MM/HR (0-20)
[2024-03-01 13:17] LABS: Alanine Aminotransferase 14 IU/L (<35); Albumin 4.5 g/dL (3.5-5.0); Albumin Globulin Ratio 1.5 (1.0-2.8); Alkaline Phosphatase 93 U/L (38-126); Aspartate Aminotransferase 25 IU/L (14-36); BUN Creatinine Ratio 21.4 (6-22); Bilirubin Total 0.5 mg/dL (0.2-1.3); Blood Urea Nitrogen 18 mg/dL (7-17); Calcium 9.2 mg/dL (8.4-10.2); Carbon Dioxide 31 mmol/L (22-32); Chloride 105 mmol/L (98-107); Cholesterol 216 mg/dL (140-199); Estimated Glomerular Filt Rate > 60 mL/min (>60); Globulin 3.1 g/dL (1.7-4.1); Glucose 81 mg/dL (70-100); HDL Cholesterol 42 mg/dL (40-60); HEMOLYSIS < 15 (0-50); LDL Cholesterol Calculated 135 mg/dL (<100); Potassium 3.9 mmol/L (3.4-5.1); Sodium 142 mmol/L (137-145); Total Protein 7.6 g/dL (6.3-8.2); Triglycerides 195 mg/dL (35-150)
[2024-03-01 13:19] LABS: Hemoglobin A1C% w Est Avg Glu 5.4 % (4.0-6.0)
[2024-03-01 13:26] LABS: Rheumatoid Factor < 8.6 IU/mL (<12.0)
== END ==
LOC: LAB 12:07
PROVIDERS: PCP Family Medicine; Referring Provider Family Medicine; Visit Provider Family Medicine
DX: M48.062 Spinal stenosis, lumbar region with neurogenic claudication (principal); M54.16 Radiculopathy, lumbar region; M43.16 Spondylolisthesis, lumbar region; G89.29 Other chronic pain; M54.50 Low back pain, unspecified
CPT/HCPCS: 36415; 80053; 80061; 83036; 84443; 85651; 86038; 86200; 86430

== ENCOUNTER → 2024-03-03 15:08 | Outpatient (CLI) | payer OTHER, MEDICAID, SELFPAY ==
--- NOTE | 2024-03-03 15:09 | DI.CT.S_ITS ---
PROCEDURE: CT LUNG LOW DOSE SCREENING INDICATIONS: screening lung TECHNIQUE: Noncontrast 2.0-2.5 mm thick sections acquired from the pulmonary apices to the posterior costophrenic angles. 7 mm thick axial MIP, and 5 mm coronal and sagittal reformats were then acquired. For radiation dose reduction, the following was used: automated exposure control, adjustment of mA and/or kV according to patient size. COMPARISON: None. FINDINGS: Image quality: Diagnostic. Lower Neck: No enlarged lymph nodes. Thyroid: No thyroid nodules which require sonographic follow up, per consensus guidelines. Axillae: No enlarged lymph nodes. Chest Wall: Unremarkable. Bones: Unremarkable. Lungs and Pleura: No pneumothorax or pleural effusions. No consolidation or suspicious nodules. Heart: Heart size is normal. No pericardial effusion. Thoracic Vessels: The aorta and pulmonary arteries demonstrate normal size. Mediastinum and Priya: No enlarged lymph nodes. Esophagus: No wall thickening. No hiatal hernia. Upper Abdomen: The liver is diffusely hypodense suggesting fatty infiltration. Visualized upper abdomen solid organs and bowel loops appear otherwise normal. IMPRESSION: No suspicious pulmonary nodules. LUNG-RADS 1; continued annual screening, if eligible. Clinically Significant Non-pulmonary Findings: Hepatic steatosis Dictated by: Tere Oneil M.D. on 03/03/2024 at 15:32 Approved by: Tere Oneil M.D. on 03/03/2024 at 15:37
== END ==
PROVIDERS: PCP Family Medicine; Referring Provider Family Medicine; Visit Provider Family Medicine
DX: Z12.2 Encounter for screening for malignant neoplasm of respiratory organs (principal); F17.210 Nicotine dependence, cigarettes, uncomplicated; K76.0 Fatty (change of) liver, not elsewhere classified
CPT/HCPCS: 71271

== ENCOUNTER → 2024-04-09 09:12 | Outpatient (CLI) | payer OTHER, MEDICAID, SELFPAY ==
[2024-04-09 10:23] LABS: Appearance Urine UA SL CLOUDY; Bilirubin Urine UA NEGATIVE (NEGATIVE); Color Urine UA YELLOW; Glucose Urine UA NEGATIVE (Negative); Ketones Urine UA NEGATIVE (NEGATIVE); Leukocyte Esterase Urine UA 3+ (NEGATIVE); Nitrite Urine UA NEGATIVE (Negative); Occult Blood Urine UA 3+ (Negative); Protein Urine UA 1+ (Negative); Specific Gravity Urine UA <=1.005 (1.000-1.035); Urobilinogen Urine UA 0.2 E.U./dL (0.2)
[2024-04-09 10:33] LABS: Bacteria Urine Many (>30); Culture Indicated Urine Specimen Cultured; RBC Urine 5-10/HPF (0-5/HPF); Squamous Epithelial Cell Urine 1-5 /HPF (0-5/HPF); Urine Volume 10mL (spun); WBC Urine 30-100/HPF (0-5/HPF)
== END ==
PROVIDERS: PCP Family Medicine; Referring Provider Family Medicine; Visit Provider Family Medicine
DX: N39.0 Urinary tract infection, site not specified (principal)
CPT/HCPCS: 81001; 87077; 87086; 87186

== ENCOUNTER → 2024-04-10 08:47 | Outpatient (CLI) | payer OTHER, MEDICAID, SELFPAY ==
--- NOTE | 2024-04-10 08:48 | DI.MG.S_ITS ---
BILATERAL DIGITAL SCREENING MAMMOGRAM 3D/2D WITH CAD: 04/10/2024 CLINICAL: Routine screening. Family history of breast cancer. Comparison is made to exams dated: 09/04/2021 mammogram, 08/13/2018 mammogram, 08/01/2016 mammogram, and 07/18/2016 mammogram - [facility]. There are scattered areas of fibroglandular density in both breasts (category b / 25%-50% glandular tissue). Current study was also evaluated with a Computer Aided Detection (CAD) system. No significant masses, calcifications, or other findings are seen in either breast. There has been no significant interval change. IMPRESSION: NEGATIVE There is no mammographic evidence of malignancy. A 1 year screening mammogram is recommended. Based on the Tyrer Cuzick model (a risk assessment model) the patient's lifetime risk is 4.1% and her 10 year risk is 1.4%. According to the ACR, ACS, and NCCN guidelines, an annual breast MRI exam along with mammogram is recommended if the patient's lifetime risk is 20% or greater. This exam was interpreted at Station ID: [id number]. NOTE: For mammograms, a report in lay terms will be sent to the patient. Approximately 15% of breast malignancies will not be visualized mammographically. In the management of a palpable breast mass, a negative mammogram must not discourage biopsy of a clinically suspicious lesion. Electronically Signed By: Abram cruz/eri:04/12/2024 15:48:50 letter sent: Normal Exam ACR BI-RADS Category 1: Negative [id number]
== END ==
PROVIDERS: PCP Family Medicine; Referring Provider Family Medicine; Visit Provider Family Medicine
DX: Z12.31 Encounter for screening mammogram for malignant neoplasm of breast (principal); Z80.3 Family history of malignant neoplasm of breast; R92.323 Mammographic fibroglandular density, bilateral breasts
CPT/HCPCS: 77063; 77067

== ENCOUNTER 2024-06-10 12:57 | Emergency (ER) | payer OTHER, SELFPAY ==
[2024-06-10 12:58] VITALS: BP 113/58; PULSE 75; RESP 14; TEMP 36.6; O2SAT 95; BMI 37.1
--- NOTE | 2024-06-10 13:04 | DI.RAD.S_ITS ---
PROCEDURE: XR SHOULDER RT MIN 2V INDICATIONS: shoulder pain TECHNIQUE: 3 views of the shoulder were acquired. COMPARISON: [facility], CR, XR SHOULDER RT MIN 2V, 12/07/2021, 8:14. [facility], CR, XR SHOULDER RT MIN 2V, 03/22/2021, 13:18. FINDINGS: Bones: Nqjy-[id number]-[id number] background degenerative changes. No acute displaced fracture or dislocation. Soft tissues: Calcific tendinopathy. IMPRESSION: Background [id number] degenerative changes and calcific tendinopathy without acute radiographic abnormality. If there is high concern for further derangement, consider MRI evaluation. Dictated by: Estevan Son M.D. on 06/10/2024 at 14:25 Approved by: Estevan Son M.D. on 06/10/2024 at 14:26
--- NOTE | 2024-06-10 13:23 | ED.UPPEXIN ---
HPI - Extremity Injury (Upper) General Chief Complaint: Extremity Injury, Upper Stated Complaint: r shoulder injury Time Seen by Provider: 06/10/24 13:02 Source: patient Mode of arrival: Ambulatory History of Present Illness HPI narrative: 58-year-old female presents for evaluation of progressively worsening right shoulder pain. States that she has had several months of shoulder pain following some sort of L&I incident, however over the last few days it seems to be getting worse. She was using gabapentin and taking fzvk-zhn-stdemqz medications without relief. She has not seen orthopedic surgery yet due to insurance issues. Wearing a homemade makeshift sling out of a scarf. Denies numbness, weakness, tingling. Reports decreased range of motion due to pain. Related Data Home Medications Medication Instructions Recorded Confirmed ascorbic acid (vitamin C) 500 mg 500 mg PO QDAY #0 tabs 05/09/16 04/09/24 tablet Previous Rx's Medication Instructions Recorded cyclobenzaprine 10 mg tablet 10 mg PO 3XD #90 tabs 12/09/23 fluoxetine 20 mg capsule 20 mg PO DAILY #90 caps 12/09/23 gabapentin 100 mg capsule 100 - 200 mg (1 - 2 x 100 mg) PO 12/09/23 BID PRN pain #120 caps gabapentin 300 mg capsule 300 mg PO BEDTIME #90 caps 12/09/23 meloxicam 15 mg tablet 15 mg PO DAILY #90 tabs 12/09/23 pantoprazole 40 mg tablet,delayed 40 mg PO BEDTIME #90 tabs 12/09/23 release albuterol sulfate 90 mcg/actuation 2 puff inhalation Q6H PRN 04/07/24 aerosol inhaler shortness of breath or wheezing #6.7 grams fluticasone 250 mcg-salmeterol 50 1 inh inhalation BID #60 ea 04/07/24 mcg/dose blistr powdr for inhalation (Advair Diskus) bupropion HCl 150 mg 24 hr tablet, 150 mg PO QAM #90 tabs 04/09/24 extended release sulfamethoxazole 800 1 tab PO BID #14 tabs 04/09/24 mg-trimethoprim 160 mg tablet (Bactrim DS) sulfamethoxazole 800 1 tab PO BID #14 tabs 04/13/24 mg-trimethoprim 160 mg tablet (Bactrim DS) hydrocodone 5 mg-acetaminophen 325 1 tab PO Q8H PRN pain #10 tabs 06/10/24 mg tablet Allergies Allergy/AdvReac Type Severity Reaction Status Date / Time No Known Drug Allergies Allergy Verified 06/10/24 13:01 Patient History Medical History Normal pelvic exam Hyperlipidemia Hepatic steatosis Tobacco use disorder COPD (chronic obstructive pulmonary disease) Hearing loss Postmenopausal bleeding Lumbar stenosis with neurogenic claudication Sacral dysfunction Yesy-Stieda syndrome of right knee Lumbar radiculopathy Spondylolisthesis at L4-L5 level Facet arthropathy, cervical Neck pain Fecal incontinence (1998) Peptic ulcer disease (1986) Dry skin (2014) Thigh pain Hip pain IBS (irritable bowel syndrome) (1998) Urinary incontinence (1993) Fibroids (1998) Irregular periods/menstrual cycles (2014) Glaucoma (1994) Chicken pox (1969) Chronic back pain (1998) Chronic headaches Foot pain (1998) Migraines Surgical History Anesthesia History of appendectomy (1993) History of right oophorectomy (1993) History of tubal ligation (1993) History of right knee surgery (1978) History of bladder suspension procedure () History of bladder suspension procedure (1983) Family History Brother Age: 43 Spina bifida Grandmother Thyroid condition Stroke Depression Heart disease Hypertension Eating disorder Mother Age: 78 Diabetes mellitus Grandfather Diverticulitis Sister Age: 57 Hyperlipidemia Hypertension Father No problems noted. Sister No problems noted. Grandfather No problems noted. Sister Age: 57 Arthritis Pancreatitis Grandmother Cancer Stroke Breast cancer Grandmother Dementia Glaucoma Cataract Social History Smoking Status: Current every day smoker alcohol intake: current Smoking Status: Current every day smoker alcohol intake frequency: holidays/special occasions only Substance Use Type: does not use Exam Initial Vital Signs Initial Vital Signs: Vital Signs Temperature 97.9 F 06/10/24 12:58 Pulse Rate 75 06/10/24 12:58 Respiratory Rate 14 06/10/24 12:58 Blood Pressure 113/58 L 06/10/24 12:58 Pulse Oximetry 95 06/10/24 12:58 Oxygen Delivery Method Room Air 06/10/24 12:58 Const: Awake, alert, no acute distress, nontoxic appearing MSK: No deformity, atraumatic, range of motion of shoulder decreased due to pain, palpable radial pulses, able to wiggle fingers, [employer] or [employer] strength equal bilaterally Skin: Warm, Dry, intact, no rashes Neuro: AO x3, CN II-XII grossly intact, moves all extremities Course Orders Ordered: Discontinued Medications Hydrocodone Bitart/Acetaminophen (Hydrocodone/Acet 5/325 Tablet) 1 tab PO NOW ONE Stop: 06/10/24 13:37 Last Admin: 06/10/24 14:11 Dose: 1 tab Documented By: ARACELIS Vital Signs Vital signs: Vital Signs - 8 hr 06/10/24 12:58 Temperature 97.9 F Pulse Rate 75 Respiratory Rate 14 Blood Pressure 113/58 L Pulse Oximetry 95 Oxygen Delivery Method Room Air [facility] - Extremity Injury (Upper) Imaging Data Extremity x-ray #1: Radiologist's Impression: PROCEDURE: XR SHOULDER RT MIN 2V INDICATIONS: shoulder pain TECHNIQUE: 3 views of the shoulder were acquired. COMPARISON: [facility], CR, XR SHOULDER RT MIN 2V, 12/07/2021, 8:14. [facility], CR, XR SHOULDER RT MIN 2V, 03/22/2021, 13:18. FINDINGS: Bones: Brjv-rc-mapohfdt background degenerative changes. No acute displaced fracture or dislocation. Soft tissues: Calcific tendinopathy. IMPRESSION: Background [id number]-fz-[id number] degenerative changes and calcific tendinopathy without acute radiographic abnormality. If there is high concern for further derangement, consider MRI evaluation. Dictated by: Estevan Son M.D. on 06/10/2024 at 14:25 Approved by: Estevan Son M.D. on 06/10/2024 at 14:26 [facility] Narrative Medical decision making narrative: Well-appearing patient with acute on chronic right shoulder pain without injury. Neurovascularly intact, range of motion however is decreased due to pain. Pain seems to be centered in the deltoid region of patient's shoulder. Wearing a make shift sling for comfort. X-rays show no acute traumatic findings, calcific tendinopathy present. Patient placed in a more formal sling for comfort, given orthopedic referral number. Short course of pain medications sent to pharmacy of choice, supportive measures counseled for home. Discharge Plan Departure Patient Disposition: Home Clinical Impression: Acute pain of right shoulder Instructions: DI for Shoulder Sprain Activity Restrictions/Additional Instructions: Your x-rays today appeared normal. Wear the sling as needed for comfort. A short course of pain medications has been sent [facility] in [place]. Please follow up with Orthopedic surgery, a referral number has been provided to you. Prescriptions: New hydrocodone-acetaminophen 5-325 mg tablet 1 tab PO Q8H PRN (Reason: pain) Qty: 10 0RF No Action ascorbic acid (vitamin C) 500 MG tablet 500 mg PO QDAY Qty: 0 sulfamethoxazole-trimethoprim [Bactrim DS] 800-160 mg tablet 1 tab PO BID Qty: 14 0RF cyclobenzaprine 10 mg tablet 10 mg PO 3XD Qty: 90 11RF fluoxetine 20 mg capsule 20 mg PO DAILY Qty: 90 3RF gabapentin 100 mg capsule 100 - 200 mg PO BID PRN (Reason: pain) Qty: 120 11RF gabapentin 300 mg capsule 300 mg PO BEDTIME Qty: 90 3RF meloxicam 15 mg tablet 15 mg PO DAILY Qty: 90 3RF Rx Instructions: with food pantoprazole 40 mg tablet,delayed release (DR/EC) 40 mg PO BEDTIME Qty: 90 3RF fluticasone propion-salmeterol [Advair Diskus] 250-50 mcg/dose blister with device 1 inh inhalation BID Qty: 60 1RF albuterol sulfate 90 mcg/actuation HFA aerosol inhaler 2 puff inhalation Q6H PRN (Reason: shortness of breath or wheezing) Qty: 6.7 1RF Rx Instructions: 2 puffs inhaled as needed for SOB or wheezing, or cough bupropion HCl 150 mg tablet extended release 24 hr 150 mg PO QAM Qty: 90 1RF sulfamethoxazole-trimethoprim [Bactrim DS] 800-160 mg tablet 1 tab PO BID Qty: 14 0RF Referrals: Elvira Quinteros MD [Physician] - Evelin Gupta MD [Emergency Provider] - Mykel Miller DO [Primary Care Provider] - Stand Alone Forms: Patient Portal/API
[2024-06-10] MEDS: HYDROCODONE/ACET 5/325 TABLET 1 TAB PO (14:11)
[2024-06-10 14:33] VITALS: BP 116/68; PULSE 77; RESP 17; O2SAT 99
== END 2024-06-10 14:35 | disposition home or self-care (01) ==
PROVIDERS: Emergency Provider Emergency Medicine; PCP Family Medicine
DX: M25.511 Pain in right shoulder (principal)
CPT/HCPCS: 73030; 99283; 99284

== ENCOUNTER → 2024-09-01 13:13 | Outpatient (CLI) | payer OTHER, SELFPAY ==
--- NOTE | 2024-09-01 13:18 | DI.MRI.S_ITS ---
PROCEDURE: MR LUMBAR SPINE WO CON INDICATIONS: SPONDYLOLISTHESIS,LUMBAR REGION TECHNIQUE: Noncontrast sagittal T1 spin echo and T2 fast echo, coronal T2, sagittal STIR, and T2 fast spin echo through the lumbar spine. COMPARISON: [facility], CR, XR LUMBAR SPINE MIN 4V, 01/10/2022, 14:56. [facility], MR, MR LUMBAR SPINE WO CON, 03/28/2022, 8:27. FINDINGS: Image quality: Excellent. Alignment and Curvature: 5 lumbar type vertebral bodies are present by plain film. Mild rightward curvature of the mid/upper lumbar spine. Loss of normal lumbar lordosis. 3 mm of retrolisthesis of L1 on L2. 3 mm of anterolisthesis of L4 on L5. 3 mm of retrolisthesis of L5 on S1. Bone Marrow: Marrow is of normal overall signal. No acute vertebral body compression fractures. Mild reactive signal throughout the endplates of the lumbar and lower thoracic spine. Spinal Cord: Conus medullaris terminates at the L1-L2 disc space level. Visualized cord demonstrates normal signal and size. Paraspinous Soft Tissues: No paravertebral masses. T12-L1: Small right paracentral protrusion. Minimal canal stenosis. No foraminal stenosis. No significant change. L1-L2: Moderate disc height loss and desiccation. Mild diffuse disc bulge with broad-based central protrusion. Mild bilateral facet and ligamentum flavum hypertrophy. Mild canal stenosis. Mild bilateral foraminal stenosis. L2-L3: Moderate disc height loss and desiccation. Mild diffuse disc bulge. Mild bilateral facet and ligamentum flavum hypertrophy. Mild canal stenosis. Moderate left and mild right foraminal stenosis. No significant change. L3-L4: Mild disc height loss and desiccation. Mild diffuse disc bulge. Mild bilateral facet and ligamentum flavum hypertrophy. Mild canal stenosis. Moderate bilateral foraminal stenosis. No significant change. L4-L5: Moderate disc height loss and desiccation. Mild bilateral facet and ligamentum flavum hypertrophy. Mild canal stenosis. Mild bilateral foraminal stenosis. No significant change. L5-S1: Moderate disc height loss and desiccation. Mild diffuse disc bulge. Mild bilateral facet hypertrophy. Mild canal stenosis. Moderate right and mild left foraminal stenosis. No significant change. IMPRESSION: 1. Multilevel degenerative disc and facet disease, as well as ligamentum flavum hypertrophy and epidural lipomatosis. 2. Mild multilevel canal stenosis. 3. Multilevel foraminal stenoses, worst at L2-L3, L3-L4, and L5-S1 where there are moderate foraminal stenoses. Dictated by: Maureen Jones M.D. on 09/01/2024 at 15:29 Approved by: Maureen Jones M.D. on 09/01/2024 at 15:41
== END ==
LOC: MRI 13:14
PROVIDERS: PCP Family Medicine; Referring Provider Orthopaedic Surgery Orthopaedic Surgery of the Spine; Visit Provider Orthopaedic Surgery Orthopaedic Surgery of the Spine
DX: M43.16 Spondylolisthesis, lumbar region (principal); M47.816 Spondylosis without myelopathy or radiculopathy, lumbar region; M47.817 Spondylosis without myelopathy or radiculopathy, lumbosacral region; M51.369 Other intervertebral disc degeneration, lumbar region without mention of lumbar back pain or lower extremity pain; M51.379 Other intervertebral disc degeneration, lumbosacral region without mention of lumbar back pain or lower extremity pain; M48.061 Spinal stenosis, lumbar region without neurogenic claudication; M48.07 Spinal stenosis, lumbosacral region
CPT/HCPCS: 72148

== ENCOUNTER → 2025-01-10 08:10 | Outpatient (CLI) | payer OTHER, SELFPAY ==
[2025-01-10 09:04] LABS: Add Manual Diff / Slide Review NO; Basophils Absolute Auto 100 /uL (0-100); Basophils Percent Auto 0.7 % (0-2); Eosinophils Absolute Auto 300 /uL (0-450); Eosinophils Percent Auto 3.5 % (2-4); Hematocrit 41.7 % (36-46); Hemoglobin 13.8 g/dL (12.0-16.0); Lymphocytes Absolute Auto 2300 /uL (1100-4500); Mean Corpuscular Hemoglobin 31.6 PG (26-34); Mean Corpuscular Volume 95.7 fL (80-100); Monocytes Absolute Auto 400 /uL (0-900); Monocytes Percent Auto 4.5 % (3-14); Neutrophils Absolute Auto 5900 /uL (1500-7000); Neutrophils Percent Auto 65.3 % (50-75); Platelet Count 267 X10^3/uL (150-400); Red Blood Cell Count 4.36 X10^6/uL (4.0-5.2); Red Cell Distribution Width 16.4 % (11.6-14.8)
[2025-01-10 09:27] LABS: Albumin Globulin Ratio 1.5 (1.0-2.8); Alkaline Phosphatase 104 U/L (38-126); Bilirubin Total 0.3 mg/dL (0.2-1.3); Blood Urea Nitrogen 15 mg/dL (7-17); Calcium 9.6 mg/dL (8.4-10.2); Carbon Dioxide 30 mmol/L (22-32); Chloride 103 mmol/L (98-107); Estimated Glomerular Filt Rate > 60 mL/min (>60); Globulin 2.7 g/dL (1.7-4.1); Glucose 110 mg/dL (70-100); HDL Cholesterol 44 mg/dL (40-60); HEMOLYSIS < 15 (0-50); Potassium 5.1 mmol/L (3.4-5.1); Sodium 140 mmol/L (137-145); Total Protein 6.7 g/dL (6.3-8.2)
[2025-01-10 09:28] LABS: Alanine Aminotransferase 19 IU/L (<35); Aspartate Aminotransferase 23 IU/L (14-36); Cholesterol 224 mg/dL (140-199); LDL Cholesterol Calculated 144 mg/dL (<100); Triglycerides 178 mg/dL (35-150)
[2025-01-10 09:56] LABS: TSH w/ Reflex to FT4 0.09 uIU/mL (0.47-4.68)
[2025-01-10 11:22] LABS: Free T4, Direct Thyroxine 0.98 ng/dL (0.78-2.19)
== END ==
LOC: LAB 08:11
PROVIDERS: PCP Family Medicine; Referring Provider Family Medicine; Visit Provider Family Medicine
DX: E78.5 Hyperlipidemia, unspecified (principal); J44.9 Chronic obstructive pulmonary disease, unspecified; K58.9 Irritable bowel syndrome, unspecified; E66.9 Obesity, unspecified
CPT/HCPCS: 36415; 80053; 80061; 83036; 84439; 84443; 85025

== ENCOUNTER → 2025-02-08 12:46 | Outpatient (CLI) | payer OTHER, SELFPAY ==
--- NOTE | 2025-02-08 12:47 | DI.CT.S_ITS ---
PROCEDURE: CT LUNG LOW DOSE SCREENING INDICATIONS: evaluation due to smoking TECHNIQUE: Noncontrast 2.0-2.5 mm thick sections acquired from the pulmonary apices to the posterior costophrenic angles. 7 mm thick axial MIP, and 5 mm coronal and sagittal reformats were then acquired. For radiation dose reduction, the following was used: automated exposure control, adjustment of mA and/or kV according to patient size. COMPARISON: [facility], CT, CT LUNG LOW DOSE SCREENING, 03/03/2024, 15:23. FINDINGS: Image quality: Diagnostic. Lower Neck: No enlarged lymph nodes. Thyroid: No thyroid nodules which require sonographic follow up, per consensus guidelines. Axillae: No enlarged lymph nodes. Chest Wall: Unremarkable. Bones: No aggressive appearing bony lesions. Lungs and Pleura: No pneumothorax or pleural effusions. No consolidation or suspicious nodules. 3 mm solid nodule in left upper lobe unchanged from prior study series 3, image 143. Heart: Heart size is normal. No pericardial effusion. Thoracic Vessels: The aorta and pulmonary arteries demonstrate normal size. Mediastinum and Priya: No enlarged lymph nodes. Esophagus: No wall thickening. No significant hiatal hernia. Upper Abdomen: Cholelithiasis is again seen in included portion of gallbladder without gallbladder wall thickening. IMPRESSION: Stable 3 mm solid nodule in left upper lobe. No suspicious pulmonary nodules. LUNG-RADS 2; continued annual screening, if eligible. Clinically Significant Non-pulmonary Findings: Cholelithiasis without CT evidence of acute cholecystitis. Dictated by: Ervin Trotter M.D. on 02/08/2025 at 15:20 Approved by: Ervin Trotter M.D. on 02/08/2025 at 15:24
== END ==
PROVIDERS: PCP Family Medicine; Referring Provider Family Medicine; Visit Provider Family Medicine
DX: Z12.2 Encounter for screening for malignant neoplasm of respiratory organs (principal); F17.210 Nicotine dependence, cigarettes, uncomplicated; R91.1 Solitary pulmonary nodule; K80.20 Calculus of gallbladder without cholecystitis without obstruction
CPT/HCPCS: 71271

== ENCOUNTER → 2025-04-11 11:19 | Outpatient (CLI) | payer OTHER, SELFPAY | PROVIDERS: PCP Family Medicine; Referring Provider Physician Assistant; Visit Provider Physician Assistant | DX: K22.719 Barrett's esophagus with dysplasia, unspecified (principal); K52.831 Collagenous colitis | CPT/HCPCS: 36415; 82172; 82247; 82465; 82947; 82977; 83010; 83883; 84450; 84460 ==